=== PATIENT | female | born 1950 | race Caucasian/White ===

== ENCOUNTER 2021-06-23 12:28 | Outpatient (CLI) | payer MEDICARE, OTHER, SELFPAY ==
--- NOTE | 2021-06-23 13:07 | MM_ITS ---
WS: [id number] BILATERAL DIGITAL SCREENING MAMMOGRAPHY WITH CAD CLINICAL INFORMATION: SCREEN HISTORY: Screening mammogram. No current complaints. COMPARISON: 06 04,019 voiding opacity left breast new from previous may represent a small lymph node but indeterminant. This measures 7 mm. Recommend further evaluation with spot compression views and u ltrasound. TECHNIQUE: Bilateral CC and MLO views. FINDINGS: Scattered fibroglandular densities bilaterally. Ovoid opacity outer left breast new from previous mo st likely represents a small lymph node but technically indeterminant and new from previous. This aquiles sures 7 mm. Recommend further evaluation with spot compression views and ultrasound. Right breast is unremarkable and unchanged. MM/[place] [id number] IMPRESSION: BI-RADS: 0-Incomplete: Need additional imaging evaluation FOLLOW UP: Need Additional Imaging Recommend left breast diagnostic mammography and ultrasound
--- NOTE | 2021-06-23 13:53 | XR_ITS ---
WS: [id number] DEXA (DUAL ENERGY X-RAY ABSORPTIOMETRY) Bone mineral density was performed using a [email or web address] machine. HISTORY: STATUS, ASYMPTOMATIC POSTMENOPAUSAL COMPARISON: None available. Lumbar spine BMD (L1-L4): 1.202 g/cm2 T score: 0.2 Z score: 1.0 Total hip BMD: Left: 1.025 g/cm2. T score: 0.1 Z score: 1.1 Right: 0.959 g/cm2. T score: -0.4 Z score: 0.6 10 year probability of a major osteoporotic fracture is 10%. XR/XR DEXA axial skeleton* [id number] IMPRESSION: NORMAL BONE MINERAL DENSITY based upon the WHO classification for females.
== END 2021-06-23 12:29 | disposition home or self-care (01) ==
PROVIDERS: PCP Internal Medicine; Visit Provider Internal Medicine
DX: Z12.31 Encounter for screening mammogram for malignant neoplasm of breast (principal); Z78.0 Asymptomatic menopausal state
CPT/HCPCS: 77067; 77080

== ENCOUNTER 2021-07-27 08:51 | Outpatient (CLI) | payer MEDICARE, OTHER, SELFPAY ==
--- NOTE | 2021-07-27 08:59 | US_ITS ---
WS: [id number] LEFT DIGITAL MAMMOGRAPHY WITH CAD CLINICAL INFORMATION: LT ABNORMAL MAMMOGRAM TECHNIQUE: 4 views of the left breast were obtained. FINDINGS: Scattered fibroglandular densities of the left breast. 7 mm ovoid opacity outer left breast is unchan ged. This persists on spot compression views. Ultrasound is pending. ULTRASOUND BREAST LEFT TECHNIQUE: Ultrasound left breast focused area of concern. CLINICAL INFORMATION: LT ABNORMAL MAMMOGRAM COMPARISON: None. FINDINGS: Ultrasound left breast at the 2:00 position 3 cm from the nipple. Tiny anechoic simple cyst at the 2:00 position measuring 3.9 x 5.3 x 2.6 mm. This is benign. No suspi cious findings to target for biopsy. US/US breast LT limited* [id number] IMPRESSION: BI-RADS: 2-Benign FOLLOW UP: 1 Year Follow-up Recommend return to annual screening mammography.
== END 2021-07-27 08:52 | disposition home or self-care (01) ==
LOC: RADSHAW 08:57
PROVIDERS: PCP Internal Medicine; Visit Provider Internal Medicine
DX: R92.8 Other abnormal and inconclusive findings on diagnostic imaging of breast (principal)
CPT/HCPCS: 76642; 77065

== ENCOUNTER 2022-08-08 14:40 | Outpatient (CLI) | payer MEDICARE, OTHER, SELFPAY ==
--- NOTE | 2022-08-08 14:53 | MM_ITS ---
WS: [id number] BILATERAL 3D TOMOSYNTHESIS DIGITAL SCREENING MAMMOGRAPHY WITH CAD CLINICAL INFORMATION: SCREENING HISTORY: Screening mammogram. No current complaints. COMPARISON: 2020 TECHNIQUE: Bilateral CC and MLO views. FINDINGS: Scattered fibroglandular densities bilaterally. No suspicious focal mass, asymmetry, calcifications, or architectural distortion. No evidence of malignancy. Stable ovoid cyst upper outer LEFT breast pre viously demonstrated on ultrasound. Incidental punctate calcifications. MM/[place] [id number] IMPRESSION: BI-RADS: 2-Benign FOLLOW UP: 1 Year Follow-up Recommend return to annual screening mammography.
== END 2022-08-08 14:41 | disposition home or self-care (01) ==
LOC: RAD 14:44
PROVIDERS: PCP Internal Medicine; Visit Provider Internal Medicine
DX: Z12.31 Encounter for screening mammogram for malignant neoplasm of breast (principal)
CPT/HCPCS: 77063; 77067

== ENCOUNTER 2023-06-25 18:37 | Emergency (ER) | payer MEDICARE, OTHER, SELFPAY ==
--- NOTE | 2023-06-25 18:58 | ECG_ITS ---
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 Measurements Intervals [place] Rate: 99 P: 60 ID: [id number] QRS: 71 QRSD: 98 T: 76 QT: 364 QTc: 469 Interpretive Statements SINUS RHYTHM POSSIBLE LEFT ATRIAL ENLARGEMENT [-0.1mV P-WAVE IN V1/V2] INCOMPLETE RIGHT BUNDLE BRANCH BLOCK [90+ ms QRS DURATION, TERMINAL R IN V1/V2, 40+ ms S IN I/aVL/V4/V5/V6] MODERATE ST DEPRESSION [0.05+ mV ST DEPRESSION] No previous ECG available for comparison Electronically Signed On 06-25-2023 21:25:40 GROUP INSURANCE SPECIALIST by Елена Heard M.D. [email or web address]
[2023-06-25 18:59] VITALS: BP 132/110
--- NOTE | 2023-06-25 18:59 | CTR_ITS ---
PROCEDURE INFORMATION: Exam: CT Head Without Contrast Exam date and time: 06/25/2023 6:42 PM Age: 72 years old Clinical indication: Stroke-like symptoms; Altered mental status/memory loss and speech disturbance; Additional info: Poss CVA TECHNIQUE: Imaging protocol: Computed tomography of the head without contrast. Radiation optimization: All CT scans at this facility use at least one of these dose optimization techniques: automated exposure control; mA and/or kV adjustment per patient size (includes targeted exams where dose is matched to clinical indication); or iterative reconstruction. Other technique: STROKE PROTOCOL was implemented. REPORTING DATA: Count of CT and Cardiac NM exams in prior 12 months: This patient has received 0 known CTs and 0 known cardiac nuclear medicine studies in the 12 months prior to the current study. COMPARISON: No relevant prior studies available. RADIATION DOSE METRICS: Total DLP (mGy-cm): 1112.38 FINDINGS: Brain: Increased attenuation along the posterior cerebral falx in tentorium, findings can be seen with acute subdural hematomas. Mild loss of crowley-white differentiation along the right parietal lobe. No brain herniation. Cerebral ventricles: Ventricles and Sulci are normal for age. Paranasal sinuses: Paranasal sinuses are clear. Mastoid air cells: Bilateral mastoid air cells are clear. Orbital cavities: Orbits are symmetric and without abnormality. Bones/joints: No acute fracture. No aggressive lytic or blastic lesions. Soft tissues: Unremarkable. CT/CT head thrombolytic [id number] IMPRESSION: 1. Subtle hypodensity along the right parietal lobe, which may represent an acute infarct. Brain MRI without contrast is recommended. 2. Increase hypodensity along the cerebral falx and tentorium, findings can be seen with small subdural hematomas. Close follow-up is recommended. ASSESSMENT: ASPECTS ([place] Stroke Program Early CT Score) is 9. THIS REPORT CONTAINS FINDINGS THAT MAY BE CRITICAL TO PATIENT CARE. The findings were verbally communicated via telephone conference with Dr. Srinivasan at 7:12 PM FEEDMOBILE DRIVER on 06/25/2023. The findings were acknowledged and understood.
--- NOTE | 2023-06-25 18:59 | CTR_ITS ---
PROCEDURE INFORMATION: Exam: CTA Head With Contrast, Arteriography Exam date and time: 06/25/2023 6:51 PM Age: 72 years old Clinical indication: Stroke-like symptoms; Altered mental status/memory loss and speech disturbance; Additional info: Poss CVA TECHNIQUE: Imaging protocol: Computed tomographic angiography of the head with contrast. Exam focused on the arteries. 3D rendering (Not supervised by radiologist): MIP and/or 3D reconstructed images were created by the technologist. Radiation optimization: All CT scans at this facility use at least one of these dose optimization techniques: automated exposure control; mA and/or kV adjustment per patient size (includes targeted exams where dose is matched to clinical indication); or iterative reconstruction. Contrast material: OMNI 350; Contrast volume: 100 ml; Contrast route: INTRAVENOUS (IV); REPORTING DATA: Count of CT and Cardiac NM exams in prior 12 months: This patient has received 0 known CTs and 0 known cardiac nuclear medicine studies in the 12 months prior to the current study. COMPARISON: CT head thrombolytic [id number] 06/25/2023 6:42 PM RADIATION DOSE METRICS: Total DLP (mGy-cm): 624.61 FINDINGS: ANTERIOR CIRCULATION: Right internal carotid artery: Intracranial segment is patent with no significant stenosis. No aneurysm. Right middle cerebral artery: No occlusion or significant stenosis. No aneurysm. Right anterior cerebral artery: No occlusion or significant stenosis. No aneurysm. Left internal carotid artery: Intracranial segment is patent with no significant stenosis. No aneurysm. Left middle cerebral artery: No occlusion or significant stenosis. No aneurysm. Left anterior cerebral artery: No occlusion or significant stenosis. No aneurysm. POSTERIOR CIRCULATION: Right vertebral artery: No occlusion or significant stenosis. No aneurysm. Left vertebral artery: No occlusion or significant stenosis. No aneurysm. Basilar artery: No occlusion or significant stenosis. No aneurysm. Right posterior cerebral artery: No occlusion or significant stenosis. No aneurysm. Left posterior cerebral artery: No occlusion or significant stenosis. No aneurysm. Brain: No definite mass, mass effect, or midline shift. Cerebral ventricles: No ventriculomegaly. Bones/joints: Unremarkable. No acute fracture. Soft tissues: Unremarkable. PROCEDURE INFORMATION: Exam: CTA Neck With Contrast Exam date and time: 06/25/2023 6:51 PM Age: 72 years old Clinical indication: Stroke-like symptoms; Altered mental status/memory loss and speech disturbance; Additional info: Poss CVA TECHNIQUE: Imaging protocol: Computed tomographic angiography of the neck with contrast. Exam focused on the cervical segments of the vasculature. 3D rendering (Not supervised by radiologist): MIP and/or 3D reconstructed images were created by the technologist. Radiation optimization: All CT scans at this facility use at least one of these dose optimization techniques: automated exposure control; mA and/or kV adjustment per patient size (includes targeted exams where dose is matched to clinical indication); or iterative reconstruction. Contrast material: OMNI 350; Contrast volume: 100 ml; Contrast route: INTRAVENOUS (IV); REPORTING DATA: Count of CT and Cardiac NM exams in prior 12 months: This patient has received 0 known CTs and 0 known cardiac nuclear medicine studies in the 12 months prior to the current study. COMPARISON: CT head thrombolytic [id number] 06/25/2023 6:42 PM RADIATION DOSE METRICS: Total DLP (mGy-cm): 624.61 FINDINGS: Right common carotid artery: No stenosis. No dissection or occlusion. Right internal carotid artery: No stenosis of the extracranial segment. No dissection or occlusion. Right external carotid artery: No occlusion or stenosis of the origin. Left common carotid artery: No stenosis. No dissection or occlusion. Left internal carotid artery: No stenosis of the extracranial segment. No dissection or occlusion. Left external carotid artery: No occlusion or stenosis of the origin. Right vertebral artery: No stenosis. No dissection or occlusion. Left vertebral artery: No stenosis. No dissection or occlusion. Diminutive left vertebral artery. Soft tissues: Normal. No significant soft tissue swelling. Bones/joints: No acute fracture. CT/CT angio headneck* [id number] IMPRESSION: No large vessel stenosis or occlusion. IMPRESSION: No stenosis or occlusion. REFERENCES: NASCET CRITERIA. The degree of stenosis in the cervical segment of the internal carotid artery is based on NASCET criteria. Normal is no stenosis. Mild is less than 50% stenosis. Moderate is 50-69% stenosis. Severe is 70% to 99% stenosis. Total occlusion is no detectable patent lumen.
--- NOTE | 2023-06-25 19:00 | ED_ITS ---
HPI - Altered Mental Status 2 General: Chief Complaint: Altered Mental Status Stated Complaint: stroke like symptoms Time Seen by Provider: 06/25/23 18:56 History of Present Illness: 72-year-old female presents to the emerg ency department via POV with her family. Family state they were driving her home approximately 55 minutes ago when she suddenly started having seizure-like activity looking to her left and having inability to speak or move her left side. Patient has a history of hypertension and hypothyroidism. No recent traumas, falls or head injury per the family. The family states her blood pressure is generally well-controlled on her antihypertensive medication lisinopril and hydrochlorothiazide. Review of Systems 2 General: Reports: ROS unobtainable due to medical condition and ROS unobtainable due to mental status PFSH ED 2 PFSH: Medical History Hypertension Hypothyroidism Surgical History No pertinent past surgical history Physical Exam 2 Narrative: Constitutional: the patient appears well nourished and with normal development. Vital signs reviewed as documented. Nonverbal, obvious acute distress noted. HENMT: Normocephalic, atraumatic. Extermal ears with normal appearance without drainage. Nose without drainage, normal appearance. Mucus membranes moist. Neck is supple, No jugular venous distension, trachea is midline, no appreciable carotid bruits. No lymphadenopathy. No meningeal signs. Flexion, extension and lateral rotation is without pain. Eyes: Pupils are equal, round, reactive to light. Upward left gaze, no scleral icterus. Thorax is symmetrical and with equal rise and fall with respirations. Resp: Lungs are clear to auscultation. No wheezes, rales, crackles or ronchi at present. Cardio: Regular rate and rhythm. Positive S1, S2. No appreciable murmurs, rubs or gallops. GI: Abdominal exam reveals normal bowel sounds to all quadrants. No organomegaly. No obvious palpable masses noted. No hepatomegally appreciated. Soft, nontender to palpation. Extremity: Extremities are non-edematous and both femoral and pedal pulses are 2+ and equal bilaterally. Left upper and lower extremity paralysis with decreased sensation to the left upper and lower extremity. Right extremity upper 5 out of 5 motor strength in the right lower 5 out of 5 motor strength. Neuro: Alert, unable to assess orientation as the patient is currently nonverbal. motor strength as noted under extremity, sensation as noted under extremity. Left upper and lower extremity paralysis, left upper gaze noted. NIHSS score 25 Psych: Cooperative, calm, normal thought process, appropriate judgment. Skin: No lesions, rashes. No gross abnormalities noted. Back: Symmetrical, no obvious deformity, No CVA tenderness Procedures Intubation Time out performed: Yes sedative: Fentanyl (100mcg) paralytic: Succinylcholine (120mg) Laryngoscope: Eduard (4-0) ET Tube Size: 8 Tube Secured Depth (cm): 22 Tube Secured Location: teeth Tube Placement Confirmation: visualized tube passing through cords, equal breath sounds bilaterally, no breath sounds over epigastrium and confirmation by capnometry Patient Tolerated Procedure: well Intubation Complications: none Course 2 ED course: Patient continued to have seizure activity despite the Ativan and fosphenytoin as well as Keppra, given her continued seizure activity I did opt to intubate the patient we used 100 mcg of fentanyl IV push as well as succinylcholine 120 mg IV push and 2 mg Versed from the [facility] that was on standby. Patient was successfully intubated with an 8 oh endotracheal tube on the first attempt it was secured after auscultation of all lung fallon and absence air over the epigastrium. Verified with chest x-ray and confirmed to be 22 cm at the teeth. Patient's oxygen saturation prior to the intubation was 91% postintubation was 99% on supplemental oxygen via bag valve endotracheal tube. Patient was subsequently placed on propofol to maintain her sedation. Vital Signs: Vital signs: Vital Signs Temperature 97.5 F L 06/25/23 19:06 Pulse Rate 84 06/26/23 01:29 Respiratory Rate 17 06/25/23 20:38 Blood Pressure 139/80 06/26/23 01:29 Pulse Oximetry 100 06/26/23 01:29 Oxygen Delivery Me thod Mechanical Ventil ation 06/25/23 20:38 Oxygen Flow Rate 2 06/25/23 19:06 MDM - Altered Mental Status Medical Decision Making NIH Stroke Scale/Score (NIHSS) on 06/25/2023 RESULT SUMMARY: 25 points NIH Stroke Scale INPUTS: 1A: Level of consciousness ?> 0 = Alert; keenly responsive 1B: Ask month and age ?> 2 = Aphasic 1C: 'Blink eyes' & 'squeeze hands' ?> 1 = Performs 1 task 2: Horizontal extraocular movements ?> 2 = Forced gaze palsy: cannot be overcome 3: Visual fallon ?> 2 = Complete hemianopia 4: Facial palsy ?> 0 = Normal symmetry 5A: Left arm motor drift ?> 4 = No movement 5B: Right arm motor drift ?> 0 = No drift for 10 seconds 6A: Left leg motor drift ?> 4 = No movement 6B: Right leg motor drift ?> 0 = No drift for 5 seconds 7: Limb Ataxia ?> 2 = Ataxia in 2 Limbs 8: Sensation ?> 1 = Mild-moderate loss: can sense being touched 9: Language/aphasia ?> 3 = Mute/global aphasia: no usable speech/auditory comprehension 10: Dysarthria ?> 2 = Mute/anarthric 11: Extinction/inattention ?> 2 = Extinction to >1 modality Physical exam completed and documented, given her altered mental status I will obtain a CT head without contrast for evaluation of acute intracranial hemorrhage, I will also obtain a CTA head and neck to evaluate for ischemia. I will obtain a CBC, CMP, Accu point glucose and given the patient's active seizure I will provide Ativan 1 mg IV push to abort her seizures and we will also provide her 20 mg/kg fosphenytoin followed by 1 g of Keppra IV load. I have contacted the [facility] for [facility] as well as [facility] and spoke with the neurologist who accepted the patient to the intensive care unit under the acute stroke protocol. Patient's vital signs at present are stable and we will maintain a systolic pressure in the 130-150 range. I did discuss with the family the plan of care as well as the need for emergent transfer. Dr. Childs the neurologist at this facility was also consulted and is currently seeing the patient. Given the concern for acute intracranial hemorrhage the patient is not a candidate for thrombolytics at present. Medical Records I reviewed the patient's medical records. Lab Data I reviewed the patient's lab results. 06/25/23 19:05 06/25/23 19:[address] 06/25/23 18:59 IMPRESSION: 1. Subtle hypodensity along the right parietal lobe, which may represent an acute infarct. Brain MRI without contrast is recommended. 2. Increase hypodensity along the cerebral falx and tentorium, findings can be seen with small subdural hematomas. Close follow-up is recommended. ASSESSMENT: ASPECTS ([place] Stroke Program Early CT Score) is 9. THIS REPORT CONTAINS FINDINGS THAT MAY BE CRITICAL TO PATIENT CARE. The findings were verbally communicated via telephone conference with Dr. Srinivasan at 7:12 PM COLD MILL OPERATOR on 06/25/2023. The findings were acknowledged and understood. Head/Neck CTA 06/25/23 18:59 IMPRESSION: No large vessel stenosis or occlusion. IMPRESSION: No stenosis or occlusion. REFERENCES: NASCET CRITERIA. The degree of stenosis in the cervical segment of the internal carotid artery is based on NASCET criteria. Normal is no stenosis. Mild is less than 50% stenosis. Moderate is 50-69% stenosis. Severe is 70% to 99% stenosis. Total occlusion is no detectable patent lumen. Chest X-Ray 06/25/23 20:15 IMPRESSION: Endotracheal tube tip in place 2.7 cm above the gerard. Laboratory Results WBC 9.36 10^3/uL (3.29-11.43) 06/25/23 19:05 RBC 4.13 10^6/uL (3.85-5.65) 06/25/23 19:05 Hgb 12.00 g/dL (11.27-16.99) 06/25/23 19:05 Hct 37.9 % (36-47) 06/25/23 19:05 MCV 91.8 fl (85-98) 06/25/23 19:05 MCH 29.1 pg (27-33) 06/25/23 19:05 MCHC 31.7 g/dL (30-55) 06/25/23 19:05 RDW 13.4 % (12.1-15.1) 06/25/23 19:05 Plt Count 236 10^3/cmm (157-399) 06/25/23 19:05 MPV 9.7 fL (7.4-10.4) 06/25/23 19:05 Neut % (Auto) 45.5 % 06/25/23 19:05 Lymph % (Auto) 38.8 % 06/25/23 19:05 [place] % (Auto) 13.7 % 06/25/23 19:05 Eos % (Auto) 1.1 % 06/25/23 19:05 Baso % (Auto) 0.3 % 06/25/23 19:05 Neut # (Auto) 4.26 10^3/uL (1.8-7.7) 06/25/23 19:05 Lymph # (Auto) 3.6 10^3/uL (0.8-4.8) 06/25/23 19:05 [place] # (Auto) 1.3 10^3/uL (0.2-0.9) H 06/25/23 19:05 Eos # (Auto) 0.1 10^3/uL (0.0-0.8) 06/25/23 19:05 Baso # (Auto) 0.0 10^3/uL (0.0-0.1) 06/25/23 19:05 Nucleated RBC % (auto) 0 % 06/25/23 19:05 Nucleated RBCs # 0.0 /100WBC 06/25/23 19:05 PT 13.70 SECONDS (12.1-14.9) 06/25/23 19:05 INR 1.02 (0.8-1.2) 06/25/23 19:05 APTT 23.6 SECONDS (23.9-36.7) L 06/25/23 19:05 Sodium 135 mmol/L (136-145) L 06/25/23 19:05 Potassium 3.6 mmol/L (3.5-5.1) 06/25/23 19:05 Chloride 99 mmol/L (98-107) 06/25/23 19:05 Carbon Dioxide 24 mmol/L (22-29) 06/25/23 19:05 Anion Gap 15.6 (5-19) 06/25/23 19:05 BUN 26 mg/dL (8-23) H 06/25/23 19:05 Creatinine 0.9 mg/dL (0.5-0.9) 06/25/23 19:05 GFR Calculation Not Reportable 06/25/23 19:05 Glucose 103 mg/dL (65-115) 06/25/23 19:05 POC Glucose 109 mg/dL (70-110) 06/25/23 19:00 Calculated Osmolality 285 mOsm/kg (285-295) 06/25/23 19:05 Calcium 8.8 mg/dL (8.5-10.5) 06/25/23 19:05 Total Bilirubin 0.2 mg/dL (0.15-1.2) 06/25/23 19:05 AST 17 U/L (0-32) 06/25/23 19:05 ALT 15 U/L (0-33) 06/25/23 19:05 Alkaline Phosphatase 70 U/L (35-105) 06/25/23 19:05 Total Protein 6.8 g/dL (6.6-8.7) 06/25/23 19:05 Albumin 3.5 g/dL (3.5-5.2) 06/25/23 19:05 Globulin 3.3 g/dL (1.3-4.6) 06/25/23 19:05 Urine Color Yellow (Yellow) 06/25/23 Unknown Urine Appearance Clear (CLEAR) 06/25/23 Unknown Urine pH 5 (5-7) 06/25/23 Unknown Ur Specific [place] 1.020 (1.005-1.030) 06/25/23 Unknown Urine Protein Trace (Negative) 06/25/23 Unknown Urine Glucose (UA) Norm (Normal) 06/25/23 Unknown Urine Ketones Negative (Negative) 06/25/23 Unknown Urine Blood 2+ (Negative) H 06/25/23 Unknown Urine Nitrate Negative (Negative) 06/25/23 Unknown Urine Bilirubin Neg (Negative) 06/25/23 Unknown Urine Urobilinogen Neg mg/dL (Negative) 06/25/23 Unknown Ur Leukocyte Esterase Negative (Negative) 06/25/23 Unknown Urine RBC 0-4 /hpf (0-2) H 06/25/23 Unknown Urine WBC None /hpf (0-5) 06/25/23 Unknown Ur Squamous Epith Cells None /hpf (0-5) 06/25/23 Unknown Amorphous Sediment Not Reportable 06/25/23 Unknown Urine Bacteria None /hpf (NONE) 06/25/23 Unknown Urine Opiates Screen Negative ng/mL (Negative) 06/25/23 Unknown Ur Barbiturates Screen Negative ng/mL (Negative) 06/25/23 Unknown Ur Phencyclidine Scrn Negative ng/mL (Negative) 06/25/23 Unknown Ur Amphetamines Screen Negative ng/mL (Negative) 06/25/23 Unknown U Benzodiazepines Scrn Negative ng/mL (Negative) 06/25/23 Unknown Urine Cocaine Screen Negative ng/mL (Negative) 06/25/23 Unknown U Marijuana (THC) Screen Negative ng/mL (Negative) 06/25/23 Unknown All radiology interpretation(s) finalized by discharge Critical Care Time 2 Critical Care Time: Critical Care Time: Yes Total Critical Care Time: 60 Attestation: This case had a high probability of a clinically significant, sudden, or life threatening deterioration of this patient's condition which required my full and direct attention, intervention and personal management. Discharge Plan Discharge Patient Disposition: Transfer to ED Clinical Impression: Acute intra-cranial hemorrhage, Altered mental status Condition: Stable Prescriptions: No Action levothyroxine 50 mcg capsule 50 mcg PO DAILY lisinopril-hydrochlorothiazide 20-12.5 mg tablet 1 tab PO DAILY benzonatate 100 mg capsule 100 mg PO BID PRN Referrals: Alma Mckay MD [Primary Care Provider] - Patient Instructions: Hyponatremia (ED), Benzodiazepine Use Disorder (ED), Dementia (ED), Non-diabetic Hypoglycemia (ED), Hypoglycemia in a Person with Diabetes (ED), Concussion (ED), Alcohol Intoxication (ED), Subarachnoid Hemorrhage (GEN), Altered Mental Status (ED) Coding Level of Care Code ED Telesales Advisor for Agustín Ortiz
[2023-06-25] MEDS: LORazepam 2 mg/mL INJ 1 mL IVP (19:05)
[2023-06-25 19:06] VITALS: BP 172/109; PULSE 97; RESP 18; TEMP 36.4; O2SAT 92; BMI 32.5
--- NOTE | 2023-06-25 19:06 | XRR_ITS ---
PROCEDURE INFORMATION: Exam: XR Chest Exam date and time: 06/25/2023 7:33 PM Age: 72 years old Clinical indication: Other: Post CVA; Additional info: Poss CVA TECHNIQUE: Imaging protocol: Radiologic exam of the chest. Views: 1 view. COMPARISON: CT angio headneck* [id number] 06/25/2023 6:51 PM FINDINGS: Lungs: Unremarkable. No consolidation. Pleural spaces: Unremarkable. No pleural effusion. No pneumothorax. Heart/Mediastinum: Unremarkable. No cardiomegaly. Bones/joints: Unremarkable. XR/XR chest 1V portable [id number] IMPRESSION: No acute findings.
[2023-06-25 19:10] LABS: Basophils % 0.3 %; Eosinophils # 0.1 10^3/uL (0.0-0.8); Eosinophils % 1.1 %; Hematocrit 37.9 % (36-47); Lymphocytes # 3.6 10^3/uL (0.8-4.8); Lymphocytes % 38.8 %; Mean Corpuscular HGB Conc 31.7 g/dL (30-55); Mean Corpuscular Hemoglobin 29.1 pg (27-33); Mean Corpuscular Volume 91.8 fl (85-98); Mean Platelet Volume 9.7 fL (7.4-10.4); Monocytes # 1.3 10^3/uL (0.2-0.9); Monocytes % 13.7 %; Neutrophils # 4.26 10^3/uL (1.8-7.7); Neutrophils % 45.5 %; Nucleated Red Blood Cells % 0 %; Platelet Count 236 10^3/cmm (157-399); Red Blood Count 4.13 10^6/uL (3.85-5.65); Red Cell Distribution Width 13.4 % (12.1-15.1); White Blood Count 9.36 10^3/uL (3.29-11.43)
[2023-06-25] MEDS: levETIRAcetam 1,000 MG/100 ML PREMIX 400 MG IV (19:15)
[2023-06-25 19:21] LABS: INR 1.02 (0.8-1.2); Partial Thromboplastin Time 23.6 SECONDS (23.9-36.7)
[2023-06-25] MEDS: iohexol 350 mg/mL 500 mL Btl (per mL) IV (19:27)
[2023-06-25 19:28] LABS: Alanine Aminotransferase 15 U/L (0-33); Albumin Level 3.5 g/dL (3.5-5.2); Alkaline Phosphatase 70 U/L (35-105); Anion Gap 15.6 (5-19); Aspartate Amino Transferase 17 U/L (0-32); Blood Urea Nitrogen 26 mg/dL (8-23); Calcium 8.8 mg/dL (8.5-10.5); Carbon Dioxide 24 mmol/L (22-29); Chloride 99 mmol/L (98-107); Globulin 3.3 g/dL (1.3-4.6); Glucose 103 mg/dL (65-115); Osmolality Calculated 285 mOsm/kg (285-295); Potassium 3.6 mmol/L (3.5-5.1); Sodium 135 mmol/L (136-145); Total Bilirubin 0.2 mg/dL (0.15-1.2); Total Protein 6.8 g/dL (6.6-8.7)
[2023-06-25 19:38] VITALS: BP 149/77; PULSE 92; O2SAT 93
[2023-06-25] MEDS: fentaNYL 50 mcg/mL INJ 2mL 100 MCG IVP (19:45)
[2023-06-25 19:53] VITALS: BP 125/74; PULSE 94; RESP 18; O2SAT 100
[2023-06-25] MEDS: midazolam 1 mg/mL INJ 2 mL 2 MG IVP (19:57)
[2023-06-25] MEDS: succinylcholine 20 mg/mL SDV 10mL 120 MG IV (20:00)
[2023-06-25 20:05] LABS: Add Urine Microscopic? YES; Bilirubin Urine Neg (Negative); Blood Urine 2+ (Negative); Glucose Urine UA Norm (Normal); Ketones Urine Negative (Negative); Leukocyte Esterase Urine Negative (Negative); Nitrate Urine Negative (Negative); Protein Urine Trace (Negative); Urine Appearance Clear (CLEAR); Urine Color Yellow (Yellow); Urobilinogen Urine Neg (Negative); pH Urine 5 (5-7)
[2023-06-25] MEDS: propofol 1,000 MG/100 ML INJ 10 MG (20:05)
[2023-06-25 20:06] LABS: Add Urine Culture? No; RBC Urine 0-4 /hpf (0-2)
--- NOTE | 2023-06-25 20:06 | P.CONIM_ITS ---
Providers/Reason For Consult 2 Consulting Physician/Specialty*: Isidoro Childs MD neurology and epilepsy Reason for Consult*: 1. Critical care code stroke initiated o n 06/25/2023 at 6:40 PM emergency department room #10 2. Status epilepticus manifested as aga ation of her eyes to the left associated with left facial weakness and chronic seizures involving left face mouth and left upper extremity with tonic posturing of the left upper extremity and left lower extremity weakness Patient was brought by family to [facility] emergency room Serum glucose 103 NIH score equals [address] 06/25/2023 Neurologist arrival at the bedside 6:58 PM Primary Care Provider: Alma Mckay MD History of Present Illness History of Present Illness Sharyn Garza is a 72 year old female who was brought to [facility] emergency room by the family. According to the , the patient and he had just left a congregation function around 5:30 PM on 06/25/2023. The patient was driving and the stated that the patient drove past their paved driveway and then passed the carport. He stated that the patient was confused and the stated that he had the patient's stop the car and he assisted her into their home. The stated that he sat the patient down at their kitchen table and the patient remained confused. Therefore he contacted their son who arrived and while attempting to get the patient up from the kitchen table she began staring and was complaining briefly to her and suddenly the patient resumed staring with deviation of her head and eyes to the left. The episode lasted for approximately 5 minutes and then the patient was able to be assisted into the car. While en route to the emergency room the patient reported feeling nauseated and was again reported to stare with deviation of her eyes to the left with tonic posturing of the left upper extremity and left leg weakness. Code stroke was initiated at 6:40 PM on 06/25/2023. The patient was transferred to room #10. I was contacted by Dr. Hutchins since the patient was experiencing focal seizures involving the left side of her face, and mouth, with tonic deviation of eyes to the left and increased tone in the left upper extremity with decreased level consciousness although the patient's eyes remain open. Noncontrast head CT scan was obtained and revealed : Subtle hypodensity along the right parietal lobe, which may represent an acute infarct and Increase hypodensity along the cerebral falx and tentorium, findings can be seen with small subdural hematomas. Close follow-up is recommended and Brain MRI without contrast is recommended. Decision was made to transfer the patient to another facility. CT angiogram of the head and neck was obtained on 06/25/2023 and revealed no large vessel occlusion. The patient was given 1 mg of Ativan but continued to experience seizures. Therefore 1 g of fosphenytoin was given at 100 mg/min x 1 dose. The patient's seizures temporarily ceased but then resumed. Patient was given 1 g of IV Keppra x 1 dose with temporary ceasing of seizure activity but then the patient's seizure activity resumed. Therefore the patient was given Versed, intubated and started on IV propofol prior to patient being med flighted to another facility to address subdural hematoma. Note: In view of the patient's status epilepticus, and reports of subdural hematoma on noncontrast head CT the patient was not a candidate for thrombolytics and no thrombolytics were administered. Past medical history: Hypothyroidism Hypertension Drug allergies: None Home medications: Synthroid 50 mcg p.o. daily Lisinopril 20 mg/hydrochlorothiazide 12.5 mg p.o. daily Benzonatate 100 mg p.o. twice daily, as needed Family history: Remarkable for a father who was diagnosed with a ruptured aneurysm. There is no family history of epilepsy Habits: None Review of Systems 2 General: Reports: ROS unobtainable due to medical condition Medications/Allergies Home Medications Medication Instructions Recorded Confirmed Last Taken Type benzonatate 100 mg capsule 100 mg PO BID PRN 10/13/22 10/13/22 Unknown History levothyroxine 50 mcg capsule 50 mcg PO DAILY 10/13/22 10/13/22 Unknown History lisinopril 20 1 tab PO DAILY 10/13/22 10/13/22 Unknown History mg-hydrochlorothiazide 12.5 mg tablet Allergies Allergy/AdvReac Type Severity Reaction Status Date / Time No Known Allergies Allergy Verified 10/13/22 14:00 PFSH Acute 2 PFSH: Medical History Hypertension Hypothyroidism Surgical History No pertinent past surgical history Vitals/I&O/Wt Last Vital Signs Temp 97.5 F L 06/25/23 19:06 Pulse 97 06/25/23 19:06 Resp 18 06/25/23 19:06 BP 172/109 06/25/23 19:06 Pulse Ox 92 06/25/23 19:06 O2 Del Method Nasal Cannula 06/25/23 19:06 O2 Flow Rate 2 06/25/23 19:06 Weight last 48 hrs Weight 190 lb Physical Exam 2 Narrative: NIH score = 25 The patient was not responding to commands. Patient was unable to answer questions or follow commands. Patient had deviation of her eyes to the left with left gaze preference. Visual fallon could not be assessed. Patient had left facial drooping with focal motor seizures/twitching involving the left face and mouth and eyes and increased tone in the left upper extremity with no movement of the left formal left leg. Coordination was affected in the left arm and left leg secondary to weakness/paralysis. Patient was unable to speak. And there was neglect on the left side of her body plantar responses were flexor bilaterally. There was no clonus. Throat clear. Lungs clear. Heart regular rhythm and rate. Extremities were negative for clubbing cyanosis or edema. Data 06/25/23 19:05 06/25/23 19:05 A&P Assessment and plan (1) Acute intra-cranial hemorrhage: Impression: 1. Status epilepticus requiring intubation and sedation and IV anticonvulsants (Ativan, Versed, Keppra, and fosphenytoin) and propofol 2. Subtle hypodensity along the right parietal lobe, which may represent an acute infarct. Head MRI recommended 3. Increase hypodensity along the cerebral falx and tentorium, findings can be seen with small subdural hematomas. Plan: 1. Agree with transfer via med flight to a facility with the capacity to address subdural hematoma 2. Patient stabilized prior to transfer via med flight 3. Seizure precautions per state law 4. Agree with obtaining head MRI (note: CT angiogram of the head and neck performed on 06/25/2023 was reported to be negative for obvious aneurysm) (2) Status epilepticus: (3) Stroke: (4) Altered mental status: Consult Attestations 2 Medical Necessity Statement: The patient was evaluated by neurology secondary to critical care with acute right parietal stroke, reports of subdural hematoma and status epilepticus requiring intubation and transfer to another facility Coding Level of Care Code 77944 Diagnoses Acute intra-cranial hemorrhage I62.9 Status epilepticus G40.901 Stroke I63.9 Altered mental status R41.82 Time Spent (min) 60 Comment I spent more than 60 minutes addressing the patient's neurological condition
[2023-06-25 20:09] LABS: Amphetamines Screen Urine Negative (Negative); Barbiturates Screen Urine Negative (Negative); Benzodiazepines Screen Urine Negative (Negative); Cocaine Screen Urine Negative (Negative); Opiate Screen Urine Negative (Negative); PCP Screen Urine Negative (Negative); THC Screen Urine Negative (Negative)
--- NOTE | 2023-06-25 20:15 | XRR_ITS ---
PROCEDURE INFORMATION: Exam: XR Chest Exam date and time: 06/25/2023 8:02 PM Age: 72 years old Clinical indication: Device placement; Ett placement (vent status); Patient HX: Check S/P et placement TECHNIQUE: Imaging protocol: Radiologic exam of the chest. Views: 1 view. COMPARISON: CR (CHEST, ) 06/25/2023 7:33 PM FINDINGS: Tubes, catheters and devices: Endotracheal tube tip in place 2.7 cm above the gerard. Lungs: Unremarkable. No consolidation. Pleural spaces: Unremarkable. No pleural effusion. No pneumothorax. Heart/Mediastinum: Unremarkable. No cardiomegaly. Bones/joints: Unremarkable. XR/XR chest 1V portable [id number] IMPRESSION: Endotracheal tube tip in place 2.7 cm above the gerard.
[2023-06-25 20:23] VITALS: BP 134/101; O2SAT 100
[2023-06-25 20:38] VITALS: BP 139/84; PULSE 85; RESP 17; O2SAT 100
[2023-06-25 20:49] LABS: Glucose Point of Care 109 mg/dL (70-110)
--- NOTE | 2023-06-26 01:24 | PC.NURSE ---
nih scale please see physician note for nih scale.
--- NOTE | 2023-06-26 01:25 | PC.NURSE ---
intial pt contact registration made a call to this nurse stating a pt needed help out of the vehicle. this nurse and another went to assist. pt had her eyes open but was unresponsive to commands. this nurse pulled her out of the vehicle into a wheelchair. we wheeled pt into lobby. this nurse asked pt to squeeze my hands and pt did so. pt head was turned all the way left. pt was not responding to her name. this nurse called for dr an to come do a stroke assessment and he did. stroke alert was called at 1840 and pt was taken to ct.
[2023-06-26 01:29] VITALS: BP 139/80; PULSE 84; O2SAT 100
[2023-06-26] MEDS: sodium chloride 0.9% 1,000 ML 999 ML IV (01:34)
== END 2023-06-25 20:50 ==
PROVIDERS: Emergency Provider Internal Medicine; PCP Internal Medicine
DX: I62.9 Nontraumatic intracranial hemorrhage, unspecified (principal); R41.82 Altered mental status, unspecified; I10 Essential (primary) hypertension
CPT/HCPCS: 31500; 36416; 70450; 70496; 70498; 71045; 80053; 80306; 81001; 82962; 85025; 85610; 85730; 93005; 96374; 96375; 99291; 99292; J0330; J1953; J2060; J2250; J2704; J3010; J7030; Q2009; Q9967

== ENCOUNTER 2023-07-04 16:01 | Outpatient (CLI) | payer MEDICARE, OTHER, SELFPAY ==
--- NOTE | 2023-07-04 16:10 | XR_ITS ---
WS: [id number] Exam: XR lumbar spine 6V w f/e [id number] Date/Time of Exam: 07/04/2023 4:19 PM Reason For Exam: DDD Comparison 05/28/2008. No fracture or dislocation. 6 mm degenerative anterolisthesis of L5 on S1. 2 mm degenerative anteroli sthesis of L4 on L5. Mild degenerative retrolisthesis of L1 on L2 and L2 on L3. Also mild degenerativ e retrolisthesis of L3 on L4. 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 Degenerative disc narrowing at all levels. Sli ght levoscoliosis. No significant change during flexion or extension. Surgical clips along the LEFT p araspinal region. IMPRESSION: 1. Moderately advanced degenerative changes as detailed above. 2. No significant change identified on flexion and extension views.
--- NOTE | 2023-07-04 16:10 | XR_ITS ---
WS: [id number] Exam: XR hip LT 2-3V wo/w pel* [id number] Date/Time of Exam: 07/04/2023 4:19 PM Reason For Exam: PAIN IN LEFT HIP No fracture or dislocation. Minimal degenerative change of the joint compartment. Normal soft tissues . IMPRESSION: 1. Minimal DJD.
== END 2023-07-04 16:02 | disposition home or self-care (01) ==
LOC: RAD 16:04
PROVIDERS: PCP Internal Medicine; Visit Provider Internal Medicine
DX: M16.12 Unilateral primary osteoarthritis, left hip (principal); M51.17 Intervertebral disc disorders with radiculopathy, lumbosacral region
CPT/HCPCS: 72114; 73502

== ENCOUNTER 2023-08-14 11:20 | Emergency (ER) | payer MEDICARE, OTHER, SELFPAY ==
[2023-08-14 11:30] VITALS: BP 159/88; PULSE 80; TEMP 36.4; O2SAT 96; BMI 35.0
--- NOTE | 2023-08-14 11:45 | W.ED.GENADLT ---
HPI - General Adult General: Chief complaint: General Medical Stated complaint: not feeling well / hx of brain tumor Time Seen by Provider: 08/14/23 11:28 History of Present Illness: 72-year-old female presents to the emergency department via EMS personnel with complaints of feeling off balance and having headache. She denies recent fall or injury. Patient was seen here on 06/25/2023 and was found to have new onset seizure activity secondary to acute findings on her CT scan of her head which consist of hypodensity in the right parietal lobe possibly representing an acute infarct and second area of hypodensity along the cerebral falx and tentorium consistent with subdural hematomas. Patient states that she has a history of hypertension and hypothyroid. She is scheduled to have neurosurgical intervention later this week. She states she just became very worried and anxious she has had recent increased life stressors to include 2 grandchildren that committed suicide recently within the past 6 months. She is very tearful during our initial evaluation here in the emergency department. Associated symptoms: Reports headache(s) Review of Systems General: Reports: 10 or more systems reviewed and unremarkable except in HPI and below Neuro: Reports: headache(s) Psych: Reports: depression [facility] PFSH: Medical History Hypertension Hypothyroidism Surgical History No pertinent past surgical history Physical Exam Narrative: EXAM NARRATIVE: Constitutional: the patient appears well nourished and with normal development. Vital signs reviewed as documented. HENMT: Normocephalic, atraumatic. External ears normal appearance without drainage. Nose without drainage, normal appearance. Mucus membranes moist. Neck is supple, No jugular venous distension, trachea is midline, no appreciable carotid bruits. No lymphadenopathy. No meningeal signs. Flexion, extension and lateral rotation is without pain. Eyes: Pupils are equal, round, reactive to light and accommodation. No scleral icterus. Extra-ocular movement are intact. Thorax is symmetrical and with equal rise and fall with respirations. Resp: Lungs are clear to auscultation. No wheezes, rales, crackles or ronchi at present. Cardio: Regular rate and rhythm. Positive S1, S2. No appreciable murmurs, rubs or gallops. GI: Abdominal exam reveals normal bowel sounds to all quadrants. No organomegaly. No obvious palpable masses noted. No hepatomegally appreciated. Soft, non-tender to palpation. Extremity: Extremities are non-edematous and both femoral and pedal pulses are 2+ and equal bilaterally. Moves all extremities well, sensation in all extremities. Neuro: Alert and oriented x4, person, place, time and situation. Cranial nerves II through XII are grossly intact, there is no focal neurological deficits that I can appreciate at present. Motor strength in the upper and lower extremities are equal and bilateral 5/5. Psych: Cooperative, calm, normal thought process, appropriate judgment. Depressed, tearful. Skin: No lesions, rashes. No gross abnormalities noted. Back: Symmetrical, no obvious deformity, No CVA tenderness Course ED course: I did contact Dr. Glass and discussed the patient's previous presenting symptoms as well as her current symptoms and received recommendation to start Lexapro at a low dose for the patient and advised her that she could contact his office for follow-up. Reevaluation(s): Reevaluation #1: Major Depression Index (MDI) on 08/14/2023 RESULT SUMMARY: 24 points Mild depression INPUTS: 1. [place] low in spirits or sad? ?> 4 = Most of the time 2. Lost interest in daily activities? ?> 3 = Slightly more than half of the time 3. [place] lacking in energy and strength? ?> 3 = Slightly more than half of the time 4. [place] less self-confident? ?> 3 = Slightly more than half of the time 5. Had a bad conscience or feelings of guilt? ?> 0 = At no time 6. [place] that life wasn?t worth living? ?> 1 = Some of the time 7. Had difficulty in concentrating, e.g. when reading the newspaper or watching television? ?> 0 = At no time 8a. [place] very restless? ?> 3 = Slightly more than half of the time 8b. [place] subdued or slowed down? ?> 3 = Slightly more than half of the time 9. Had trouble sleeping at night? ?> 4 = Most of the time 10a. Suffered from reduced appetite? ?> 3 = Slightly more than half of the time 10b. Suffered from increased appetite? ?> 0 = At no time Time: 11:56 Vital Signs: Vital signs: Vital Signs Temperature 97.6 F 08/14/23 11:30 Pulse Rate 86 08/14/23 15:00 Blood Pressure 147/89 08/14/23 15:00 Pulse Oximetry 94 08/14/23 13:00 Oxygen Delivery Me thod Room Air 08/14/23 11:30 MDM - General Adult Medical Decision Making 72-year-old female presents secondary to feeling slightly off today recent diagnosis of new onset seizure secondary to intracranial hemorrhage with a history of hypertension and hypothyroidism. We will obtain laboratory evaluation to include a CBC, CMP and urinalysis. I will start her on antidepressant medication given her presentation and her calculated Maharaj Depression Inventory. Differential Diagnosis Anxiety, depression, UTI, Medical Records I reviewed the patient's medical records. Lab Data I reviewed the patient's lab results. 08/14/23 11:51 08/14/23 11:51 Laboratory Results WBC 8.07 10^3/uL (3.29-11.43) 08/14/23 11:51 RBC 4.66 10^6/uL (3.85-5.65) 08/14/23 11:51 Hgb 13.50 g/dL (11.27-16.99) 08/14/23 11:51 Hct 41.9 % (36-47) 08/14/23 11:51 MCV 89.9 fl (85-98) 08/14/23 11:51 MCH 29.0 pg (27-33) 08/14/23 11:51 MCHC 32.2 g/dL (30-55) 08/14/23 11:51 RDW 12.5 % (12.1-15.1) 08/14/23 11:51 Plt Count 249 10^3/cmm (157-399) 08/14/23 11:51 MPV 9.4 fL (7.4-10.4) 08/14/23 11:51 Neut % (Auto) 59.7 % 08/14/23 11:51 Lymph % (Auto) 26.9 % 08/14/23 11:51 [place] % (Auto) 10.5 % 08/14/23 11:51 Eos % (Auto) 1.6 % 08/14/23 11:51 Baso % (Auto) 0.6 % 08/14/23 11:51 Neut # (Auto) 4.81 10^3/uL (1.8-7.7) 08/14/23 11:51 Lymph # (Auto) 2.2 10^3/uL (0.8-4.8) 08/14/23 11:51 [place] # (Auto) 0.9 10^3/uL (0.2-0.9) 08/14/23 11:51 Eos # (Auto) 0.1 10^3/uL (0.0-0.8) 08/14/23 11:51 Baso # (Auto) 0.1 10^3/uL (0.0-0.1) 08/14/23 11:51 Nucleated RBC % (auto) 0 % 08/14/23 11:51 Nucleated RBCs # 0.0 /100WBC 08/14/23 11:51 Sodium 137 mmol/L (136-145) 08/14/23 11:51 Potassium 4.7 mmol/L (3.5-5.1) 08/14/23 11:51 Chloride 98 mmol/L (98-107) 08/14/23 11:51 Carbon Dioxide 29 mmol/L (22-29) 08/14/23 11:51 Anion Gap 14.7 (5-19) 08/14/23 11:51 BUN 18 mg/dL (8-23) 08/14/23 11:51 Creatinine 0.7 mg/dL (0.5-0.9) 08/14/23 11:51 GFR Calculation Not Reportable 08/14/23 11:51 Glucose 106 mg/dL (65-115) 08/14/23 11:51 Calculated Osmolality 286 mOsm/kg (285-295) 08/14/23 11:51 Calcium 9.2 mg/dL (8.5-10.5) 08/14/23 11:51 Total Bilirubin 0.2 mg/dL (0.15-1.2) 08/14/23 11:51 AST 22 U/L (0-32) 08/14/23 11:51 ALT 18 U/L (0-33) 08/14/23 11:51 Alkaline Phosphatase 126 U/L (35-105) H 08/14/23 11:51 Total Protein 8.0 g/dL (6.6-8.7) 08/14/23 11:51 Albumin 3.9 g/dL (3.5-5.2) 08/14/23 11:51 Globulin 4.1 g/dL (1.3-4.6) 08/14/23 11:51 Urine Color Straw (Yellow) 08/14/23 12:10 Urine Appearance Clear (CLEAR) 08/14/23 12:10 Urine pH 6.5 (5-7) 08/14/23 12:10 Ur Specific [place] 1.005 (1.005-1.030) 08/14/23 12:10 Urine Protein Neg (Negative) 08/14/23 12:10 Urine Glucose (UA) Norm (Normal) 08/14/23 12:10 Urine Ketones Negative (Negative) 08/14/23 12:10 Urine Blood Neg (Negative) 08/14/23 12:10 Urine Nitrate Negative (Negative) 08/14/23 12:10 Urine Bilirubin Neg (Negative) 08/14/23 12:10 Urine Urobilinogen Norm mg/dL (Negative) 08/14/23 12:10 Ur Leukocyte Esterase Negative (Negative) 08/14/23 12:10 Urine RBC None /hpf (0-2) 08/14/23 12:10 Urine WBC Rare /hpf (0-5) 08/14/23 12:10 Ur Squamous Epith Cells Rare /hpf (0-5) 08/14/23 12:10 Amorphous Sediment Not Reportable 08/14/23 12:10 Urine Bacteria Trace /hpf (NONE) 08/14/23 12:10 All radiology interpretation(s) finalized by discharge Discharge Plan Discharge Patient Disposition: Home Clinical Impression: Stress disorder, acute Condition: Stable Prescriptions: New Lexapro 10 mg tablet 10 mg PO DAILY Qty: 90 0RF No Action levothyroxine 50 mcg capsule 50 mcg PO DAILY lisinopril-hydrochlorothiazide 20-12.5 mg tablet 1 tab PO DAILY benzonatate 100 mg capsule 100 mg PO BID PRN Discharge Orders: Discharge ED (Routine); Ordered 08/14/23 Ordered By: Karthik Hutchins Referrals: Alma Mckay MD [Primary Care Provider] - Discharge Diet: Advance as tolerated Discharge Activity: Resume usual activity Patient Instructions: Opioid Safety, Pain Management Coding Level of Care Code ED Production Hardener for Chg Diana
[2023-08-14 12:05] LABS: Basophils # 0.1 10^3/uL (0.0-0.1); Basophils % 0.6 %; Eosinophils # 0.1 10^3/uL (0.0-0.8); Eosinophils % 1.6 %; Hematocrit 41.9 % (36-47); Lymphocytes # 2.2 10^3/uL (0.8-4.8); Lymphocytes % 26.9 %; Mean Corpuscular HGB Conc 32.2 g/dL (30-55); Mean Corpuscular Volume 89.9 fl (85-98); Mean Platelet Volume 9.4 fL (7.4-10.4); Monocytes # 0.9 10^3/uL (0.2-0.9); Monocytes % 10.5 %; Neutrophils # 4.81 10^3/uL (1.8-7.7); Neutrophils % 59.7 %; Nucleated Red Blood Cells % 0 %; Platelet Count 249 10^3/cmm (157-399); Red Blood Count 4.66 10^6/uL (3.85-5.65); Red Cell Distribution Width 12.5 % (12.1-15.1); White Blood Count 8.07 10^3/uL (3.29-11.43)
[2023-08-14 12:21] LABS: Alanine Aminotransferase 18 U/L (0-33); Albumin Level 3.9 g/dL (3.5-5.2); Alkaline Phosphatase 126 U/L (35-105); Anion Gap 14.7 (5-19); Aspartate Amino Transferase 22 U/L (0-32); Blood Urea Nitrogen 18 mg/dL (8-23); Calcium 9.2 mg/dL (8.5-10.5); Carbon Dioxide 29 mmol/L (22-29); Chloride 98 mmol/L (98-107); Creatinine Clr Calc Pharmacy 68.0146; Globulin 4.1 g/dL (1.3-4.6); Glucose 106 mg/dL (65-115); Osmolality Calculated 286 mOsm/kg (285-295); Potassium 4.7 mmol/L (3.5-5.1); Sodium 137 mmol/L (136-145); Total Bilirubin 0.2 mg/dL (0.15-1.2)
[2023-08-14 12:22] LABS: Bilirubin Urine Neg (Negative); Blood Urine Neg (Negative); Glucose Urine UA Norm (Normal); Ketones Urine Negative (Negative); Leukocyte Esterase Urine Negative (Negative); Nitrate Urine Negative (Negative); Protein Urine Neg (Negative); Specific Gravity, Urine 1.005 (1.005-1.030); Urine Appearance Clear (CLEAR); Urine Color Straw (Yellow); Urobilinogen Urine Norm (Negative); pH Urine 6.5 (5-7)
[2023-08-14 12:34] LABS: Add Urine Culture? No; Bacteria Urine TRACE /hpf; Squamous Epithelial Cell Urine RARE /hpf (0-5)
[2023-08-14 12:35] LABS: WBC Urine RARE /hpf (0-5)
[2023-08-14 12:44] VITALS: BP 112/63; O2SAT 99
--- NOTE | 2023-08-14 12:56 | CT_ITS ---
WS: [id number] CT head wo con* [id number] REASON FOR EXAM: Headache- Previous spontaneous head bleed IV CONTRAST ADMINISTERED: None. TOTAL EXAM DLP: 1061.[address] scans at [facility] use at least one of these dose optimization techniques: automat ed exposure control; mA and/or kV adjustment per patient size (includes targeted exams where dose is matched to clinical indication); or iterative reconstruction. FINDINGS: No midline shift or other significant mass effect. No subdural or subarachnoid hemorrhage. No brain parenchymal hemorrhage. Normal ventricular volume. No acute focal brain parenchymal abnormality. Bony base of skull and the calvarium are unremarkable. Moderate mucosal thickening in the ethmoid sinuses. IMPRESSION: No acute intracranial abnormality. Mild inflammatory sinus disease ethmoid sinuses.
[2023-08-14 13:00] VITALS: BP 145/93; PULSE 73; O2SAT 94
[2023-08-14 13:30] VITALS: BP 131/98; PULSE 75
[2023-08-14 14:00] VITALS: BP 121/82; PULSE 77
[2023-08-14 15:00] VITALS: BP 147/89; PULSE 86
== END 2023-08-14 15:17 | disposition home or self-care (01) ==
PROVIDERS: Emergency Provider Internal Medicine; PCP Internal Medicine
DX: F43.0 Acute stress reaction (principal); I10 Essential (primary) hypertension
CPT/HCPCS: 36415; 70450; 80053; 81001; 85025; 99284

== ENCOUNTER → 2023-10-09 13:49 | Outpatient (BNVA) | payer MEDICARE, OTHER, SELFPAY | PROVIDERS: PCP Internal Medicine; Referring Provider Internal Medicine; Visit Provider Psychiatry & Neurology Neurology | DX: G40.901 Epilepsy, unspecified, not intractable, with status epilepticus (principal) | CPT/HCPCS: 99212 ==

== ENCOUNTER 2023-10-16 08:49 | Outpatient (CLI) | payer MEDICARE, OTHER, SELFPAY ==
[2023-10-16 09:24] LABS: Phenytoin Dilantin 4.9 ug/mL (10-20)
== END 2023-10-16 08:50 | disposition home or self-care (01) ==
LOC: LAB 08:52
PROVIDERS: PCP Internal Medicine; Visit Provider Psychiatry & Neurology Neurology
DX: G40.901 Epilepsy, unspecified, not intractable, with status epilepticus (principal); I63.9 Cerebral infarction, unspecified
CPT/HCPCS: 36415; 80185

== ENCOUNTER → 2023-10-27 14:42 | Outpatient (BNVA) | payer MEDICARE, OTHER, SELFPAY | PROVIDERS: PCP Internal Medicine; Visit Provider Psychiatry & Neurology Neurology | DX: G40.901 Epilepsy, unspecified, not intractable, with status epilepticus (principal) | CPT/HCPCS: 95813 ==

== ENCOUNTER 2023-12-20 10:50 | Outpatient (CLI) | payer MEDICARE, OTHER, SELFPAY ==
--- NOTE | 2023-12-20 11:13 | MM_ITS ---
WS: [id number] BILATERAL SCREENING DIGITAL TOMOSYNTHESIS MAMMOGRAM WITH CAD HISTORY: SCREENING COMPARISON: 08/08/2022, 06/23/2021 and 06/04/2019 Bilateral CC and MLO views with tomosynthesis and synthetic mammography submitted. Computer aided det ection analyzed. Breast composition: There are scattered areas of fibroglandular density. No suspicious masses, microc alcifications or architectural distortion. 5 mm high density nodule upper outer quadrant LEFT breast is stable. No new suspicious mass or calcification. MM/[place] [id number] IMPRESSION: BI-RADS: 2-Benign FOLLOW UP: 1 Year Follow-up
== END 2023-12-20 10:51 | disposition home or self-care (01) ==
LOC: RAD 10:50
PROVIDERS: PCP Internal Medicine; Visit Provider Internal Medicine
DX: Z12.31 Encounter for screening mammogram for malignant neoplasm of breast (principal); R92.323 Mammographic fibroglandular density, bilateral breasts; N63.21 Unspecified lump in the left breast, upper outer quadrant
CPT/HCPCS: 77063; 77067

== ENCOUNTER → 2023-12-26 15:28 | Outpatient (BNVA) | payer MEDICARE, OTHER, SELFPAY | PROVIDERS: PCP Internal Medicine; Visit Provider Psychiatry & Neurology Neurology | DX: G40.901 Epilepsy, unspecified, not intractable, with status epilepticus (principal) | CPT/HCPCS: 99212 ==

== ENCOUNTER 2023-12-27 08:03 | Outpatient (CLI) | payer MEDICARE, OTHER, SELFPAY ==
[2023-12-27 09:12] LABS: Phenytoin Dilantin 3.7 ug/mL (10-20)
[2023-12-29 11:14] LABS: Levetiracetam Immunoassy 24.7 mcg/mL (6.0-46.0)
== END 2023-12-27 08:04 | disposition home or self-care (01) ==
LOC: LAB 08:06
PROVIDERS: PCP Internal Medicine; Visit Provider Psychiatry & Neurology Neurology
DX: G40.901 Epilepsy, unspecified, not intractable, with status epilepticus (principal); I63.9 Cerebral infarction, unspecified
CPT/HCPCS: 36415; 80177; 80185

== ENCOUNTER 2024-02-21 08:04 | Oncology outpatient (recurring) (ONCR) | payer MEDICARE, OTHER, SELFPAY ==
--- NOTE | 2024-02-21 09:16 | N.ONRAD NP_ITS ---
Radiation Oncology New Patient Visit Patient: Sharyn Garza MR#: [id number] : 1950 Age: 73 Sex: Female Dictated by: Dr. Corrie Garcia Date of Service: 02/21/2024 Referring Physician(s) : Diagnosis: Glioblastoma multiforma Radiotherapy to date: Summary > No prior radiation therapy. Chief Complaint / History of Present Illness: Patient initially recounts how she had symptoms on June 25 which she describes as a seizure. This apparently occurred during a [place] event. She was brought to the hospital and placed in a medical coma and transferred to [facility]. She underwent an initial surgery on the initial pathology showed hypercellularity and glial atypia. She was subsequently followed and then had a recurrence on an additional MRI and subsequently on January 30 had an additional surgery. One of her other symptoms at the initial encounter in June was 36 hours of laughing. 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 She has not had this happen since. After this last surgery she continues to have myoclonic jerking in multiple locations. Her left side is weaker than her right. She says she has some memory issues but mostly it is affected her coordination between her hearing, eyes and her motor coordination. As an example she says she cannot really talk on the phone and right instructions down nor can she keep up with the sticker at the bottom of the TV. She is now 3 weeks from her most recent surgery which found the tumor to be a GBM. She is here today to discuss postoperative treatment. Current Medications: Allergies: Adhesive Medical History: No history of collagen vascular disease. No previous radiation therapy. Hypothyroidism, hypertension Surgical History: Nephrectomy in 2000 when she gave her brother a kidney, tonsillectomy Family History: Her grandfather had colon cancer Social History: She currently lives with her Current Complaints / Review of Systems: . Vital Signs: Performed on 02/21/2024 8:30 AM BMI - 39.102 kg/m2 (high), Height - 64 in, Weight - 227.8 lbs, Temperature - 98.3 f, Pulse - 86 /min, Respiration - 18 /min, O2 Sat - 96 %, Pain - 0, Fatigue - 0 and BP - 161/ 102 mm(hg)(high). Physical Exam: General: Patient is in no apparent distress. She is accompanied today by her . HEENT: Normocephalic atraumatic. Pupils are equal, sclera clear, extraocular muscles intact. Both incisions are nicely healed. Pulmonary: Respiratory rate is regular and nonlabored Cardiovascular: Regular rate and rhythm Abdomen: Mildly protuberant and android pattern Neurological: Patient is able to walk. She feels like her balance is off but she seems to walk without issues. Her speech is intact. Hearing is intact. She was able to shake my hand without issues. She describes complex issues and having problems with hearing things and trying to write those down as soon she is on the phone trying to write instructions down. 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 We discussed the most recent surgery she had. She is aware of the need to proceed with the postop treatment. We reviewed the simulation process. We discussed the risk and side effects both acute and long-term. She is aware of the very poor prognosis associated with glioblastoma's. She would very much liked to make it to her grandsons wedding in March. She will be meeting with Dr. Luke on Monday to discuss the chemotherapy portion of her treatment. At this point she will return tomorrow to undergo simulation. Will be ready to initiate her treatment anytime next week once we get her planning done. She had no additional questions. I did encourage her to have her write down any questions if she should think of anything when she gets home. I am going to put her on a low-dose of dexamethasone. She did apparently have quite a bit of side effects with swelling in her hands and feet when she was on steroids previously. I will try and get her off the steroids as quickly as possible once we get her treatment started. At this point she is agreed to proceed with treatment and we will get her started soon as possible. Signed by: 02/21/2024 9:22:13 AM <<Signature on File>> Time spent with patient:45 CPT Code: CPT Code:
== END 2024-02-21 23:59 | disposition home or self-care (01) ==
LOC: ONCMED 08:06
PROVIDERS: PCP Internal Medicine; Visit Provider Radiology Radiation Oncology
DX: C71.9 Malignant neoplasm of brain, unspecified (principal)
CPT/HCPCS: 99205

== ENCOUNTER 2024-03-06 15:26 | Oncology outpatient (recurring) (ONCR) | payer MEDICARE, OTHER, SELFPAY ==
[2024-02-28 09:40] LABS: Basophils # 0.1 10^3/uL (0.0-0.1); Basophils % 0.7 %; Eosinophils # 0.1 10^3/uL (0.0-0.8); Eosinophils % 1.1 %; Hematocrit 43.9 % (36-47); Lymphocytes # 3.2 10^3/uL (0.8-4.8); Lymphocytes % 44.3 %; Mean Corpuscular HGB Conc 31.9 g/dL (30-55); Mean Corpuscular Hemoglobin 29.6 pg (27-33); Mean Corpuscular Volume 92.8 fl (85-98); Mean Platelet Volume 9.5 fL (7.4-10.4); Monocytes # 0.7 10^3/uL (0.2-0.9); Monocytes % 10.2 %; Neutrophils # 3.02 10^3/uL (1.8-7.7); Neutrophils % 42.4 %; Nucleated Red Blood Cells % 0 %; Platelet Count 229 10^3/cmm (157-399); Red Blood Count 4.73 10^6/uL (3.85-5.65); Red Cell Distribution Width 12.9 % (12.1-15.1); White Blood Count 7.13 10^3/uL (3.29-11.43)
[2024-02-28 10:06] LABS: Alanine Aminotransferase 31 U/L (0-33); Albumin Level 3.9 g/dL (3.5-5.2); Alkaline Phosphatase 186 U/L (35-105); Anion Gap 16.3 (5-19); Aspartate Amino Transferase 27 U/L (0-32); Blood Urea Nitrogen 15 mg/dL (8-23); Calcium 9.2 mg/dL (8.5-10.5); Carbon Dioxide 24 mmol/L (22-29); Chloride 104 mmol/L (98-107); Creatinine Clr Calc Pharmacy 67.5063; Globulin 3.6 g/dL (1.3-4.6); Glucose 89 mg/dL (65-115); Osmolality Calculated 290 mOsm/kg (285-295); Potassium 4.3 mmol/L (3.5-5.1); Sodium 140 mmol/L (136-145); Total Bilirubin 0.2 mg/dL (0.15-1.2); Total Protein 7.5 g/dL (6.6-8.7)
[2024-03-05 15:37] LABS: Basophils % 0.5 %; Eosinophils % 0.5 %; Hematocrit 43.6 % (36-47); Lymphocytes # 2.1 10^3/uL (0.8-4.8); Lymphocytes % 26.7 %; Mean Corpuscular HGB Conc 32.1 g/dL (30-55); Mean Corpuscular Hemoglobin 29.5 pg (27-33); Mean Platelet Volume 9.6 fL (7.4-10.4); Monocytes # 0.7 10^3/uL (0.2-0.9); Monocytes % 8.5 %; Neutrophils # 5.05 10^3/uL (1.8-7.7); Neutrophils % 62.9 %; Nucleated Red Blood Cells % 0 %; Platelet Count 270 10^3/cmm (157-399); Red Blood Count 4.74 10^6/uL (3.85-5.65); White Blood Count 8.02 10^3/uL (3.29-11.43)
[2024-03-05 15:54] LABS: Alanine Aminotransferase 34 U/L (0-33); Albumin Level 4.1 g/dL (3.5-5.2); Alkaline Phosphatase 196 U/L (35-105); Aspartate Amino Transferase 30 U/L (0-32); Blood Urea Nitrogen 18 mg/dL (8-23); Calcium 9.2 mg/dL (8.5-10.5); Carbon Dioxide 30 mmol/L (22-29); Chloride 99 mmol/L (98-107); Creatinine Clr Calc Pharmacy 60.6243; Globulin 3.6 g/dL (1.3-4.6); Glucose 151 mg/dL (65-115); Osmolality Calculated 293 mOsm/kg (285-295); Sodium 139 mmol/L (136-145); Total Bilirubin 0.2 mg/dL (0.15-1.2); Total Protein 7.7 g/dL (6.6-8.7)
--- NOTE | 2024-03-05 15:54 | ONCRAD TMN_ITS ---
Radiation Oncology Weekly Treatment Management Patient: Sharyn Garza MR#: [id number] : 1950 Attending Physician: Dr. 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 ID: [id number], Energy: 6X, Dose/Fx (cGy): 200, #Fx: 5 / 30, Dose Correction (cGy): 0, Total Dose Delivered (cGy): 1,000, Start Date: 02/28/2024, Elapsed Days: 6 Reason for visit: The patient is being seen today as part of their regularly scheduled weekly on treatment visits to assess for acute toxicities from radiotherapy. Review of Systems: Patient had a mild headache this morning took 2 Tylenol with good resolution Vital Signs: Performed on 03/05/2024 3:30 PM BMI - 35.978 kg/m2 (high), Height - 64 in, Weight - 209.6 lbs, Temperature - 96.3 f, Pulse - 83 /min, Respiration - 18 /min, O2 Sat - 97 %, Pain - 0, Fatigue - 5 and BP - 150/ 83 mm(hg)(high/). Physical Exam: Patient is no changes on exam Imaging: Radiation therapy imaging related to accurate target localization (i.e. KV, MV and CBCT) was reviewed. Appropriate changes, if any, were made to ensure treatment accuracy. Plan: Will continue with her treatments as planned. I did ask her to check with her [id number] to make sure she is not taking any additional steroids at this point. Signed by: Dr. Corrie Garcia 03/05/2024 3:52:45 PM
[2024-03-05 15:56] LABS: Anion Gap 14.2 (5-19); Potassium 4.2 mmol/L (3.5-5.1)
== END 2024-03-06 23:59 | disposition home or self-care (01) ==
PROVIDERS: Nurse Practitioner Family; PCP Internal Medicine; Visit Provider Radiology Radiation Oncology
DX: Z51.0 Encounter for antineoplastic radiation therapy (principal); C71.3 Malignant neoplasm of parietal lobe
CPT/HCPCS: 36415; 77300; 77301; 77334; 77338; 77386; 77470; 80053; 85025; 99024; 99205; 99214; 99215

== ENCOUNTER 2024-03-22 09:12 | Oncology outpatient (recurring) (ONCR) | payer MEDICARE, OTHER, SELFPAY ==
[2024-03-12 16:05] LABS: Basophils % 0.4 %; Eosinophils # 0.1 10^3/uL (0.0-0.8); Eosinophils % 1.8 %; Hematocrit 43.3 % (36-47); Lymphocytes # 1.7 10^3/uL (0.8-4.8); Lymphocytes % 23.7 %; Mean Corpuscular HGB Conc 32.3 g/dL (30-55); Mean Corpuscular Volume 92.9 fl (85-98); Mean Platelet Volume 9.8 fL (7.4-10.4); Monocytes # 0.7 10^3/uL (0.2-0.9); Monocytes % 9.6 %; Neutrophils # 4.66 10^3/uL (1.8-7.7); Neutrophils % 63.7 %; Nucleated Red Blood Cells % 0 %; Platelet Count 242 10^3/cmm (157-399); Red Blood Count 4.66 10^6/uL (3.85-5.65); Red Cell Distribution Width 13.4 % (12.1-15.1); White Blood Count 7.31 10^3/uL (3.29-11.43)
[2024-03-12 16:48] LABS: Alanine Aminotransferase 35 U/L (0-33); Alkaline Phosphatase 176 U/L (35-105); Anion Gap 15.1 (5-19); Aspartate Amino Transferase 33 U/L (0-32); Blood Urea Nitrogen 22 mg/dL (8-23); Carbon Dioxide 30 mmol/L (22-29); Chloride 104 mmol/L (98-107); Globulin 3.8 g/dL (1.3-4.6); Glucose 133 mg/dL (65-115); Osmolality Calculated 305 mOsm/kg (285-295); Potassium 4.1 mmol/L (3.5-5.1); Sodium 145 mmol/L (136-145); Total Bilirubin 0.2 mg/dL (0.15-1.2); Total Protein 7.8 g/dL (6.6-8.7)
--- NOTE | 2024-03-13 10:59 | ONCRAD TMN_ITS ---
Radiation Oncology Weekly Treatment Management Patient: Sharyn Garza MR#: [id number] : 1950 Attending Physician: Dr. 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 ID: [id number], Energy: 6X, Dose/Fx (cGy): 200, Fx: , Dose Correction (cGy): 0, Total Dose Delivered (cGy): 2,000, Start Date: 02/28/2024, Elapsed Days: 13 Reason for visit: The patient is being seen today as part of their regularly scheduled weekly on treatment visits to assess for acute toxicities from radiotherapy. Review of Systems: Patient denies any headaches or other changes Vital Signs: Performed on 03/12/2024 3:31 PM BMI - 36.012 kg/m2 (high), Height - 64 in, Weight - 209.8 lbs, Temperature - 97.7 f, Pulse - 81 /min, Respiration - 16 /min, O2 Sat - 96 %, Pain - 0, Fatigue - 0 and BP - 140/ 86 mm(hg). Physical Exam: No changes on exam Imaging: Radiation therapy imaging related to accurate target localization (i.e. KV, MV and CBCT) was reviewed. Appropriate changes, if any, were made to ensure treatment accuracy. Plan: Will continue with treatments as planned. I did ask her to check to see if she is still taking dexamethasone. She was unsure. I wrote it down on a piece of paper to remind her to look. Signed by: Dr. Corrie Garcia 03/13/2024 10:58:25 AM
--- NOTE | 2024-03-19 15:56 | ONCRAD TMN_ITS ---
Radiation Oncology Weekly Treatment Management Patient: Greg Jones MR#: [id number] : 1950> Attending Physician: Dr. 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 ID: [id number], Energy: 6X, Dose/Fx (cGy): 200, #Fx: 15 / 30, Dose Correction (cGy): 0, Total Dose Delivered (cGy): 3,000, Start Date: 02/28/2024, Elapsed Days: 20 Reason for visit: The patient is being seen today as part of their regularly scheduled weekly on treatment visits to assess for acute toxicities from radiotherapy. Review of Systems: Patient denies any headaches or nausea. Her appetite is good and good. She is not having any issues with the Temodar. She is beginning to lose some of her hair. Vital Signs: Performed on 03/19/2024 3:23 PM BMI - 35.6 kg/m2 (high), Height - 64 in, Weight - 207.4 lbs, Temperature - 96.6 f, Pulse - 89 /min, Respiration - 18 /min, O2 Sat - 97 %, Pain - 0, Fatigue - 0 and BP - 132/ 88 mm(hg). Physical Exam: No changes on exam. The skin is without changes. Imaging: Radiation therapy imaging related to accurate target localization (i.e. KV, MV and CBCT) was reviewed. Appropriate changes, if any, were made to ensure treatment accuracy. Plan: Continue with her treatments as planned. Signed by: Dr. Corrie Garcia 03/19/2024 3:54:53 PM
[2024-03-20 09:13] LABS: Basophils % 0.4 %; Eosinophils # 0.1 10^3/uL (0.0-0.8); Hematocrit 41.1 % (36-47); Lymphocytes # 1.7 10^3/uL (0.8-4.8); Lymphocytes % 30.2 %; Mean Corpuscular HGB Conc 32.6 g/dL (30-55); Mean Corpuscular Hemoglobin 30.3 pg (27-33); Mean Platelet Volume 9.8 fL (7.4-10.4); Monocytes # 0.6 10^3/uL (0.2-0.9); Monocytes % 10.7 %; Neutrophils # 3.11 10^3/uL (1.8-7.7); Neutrophils % 56.2 %; Nucleated Red Blood Cells % 0 %; Platelet Count 242 10^3/cmm (157-399); Red Blood Count 4.42 10^6/uL (3.85-5.65); Red Cell Distribution Width 13.3 % (12.1-15.1); White Blood Count 5.53 10^3/uL (3.29-11.43)
[2024-03-20 09:35] LABS: Alanine Aminotransferase 34 U/L (0-33); Alkaline Phosphatase 156 U/L (35-105); Anion Gap 15.8 (5-19); Aspartate Amino Transferase 33 U/L (0-32); Blood Urea Nitrogen 20 mg/dL (8-23); Calcium 8.7 mg/dL (8.5-10.5); Carbon Dioxide 25 mmol/L (22-29); Chloride 105 mmol/L (98-107); Creatinine Clr Calc Pharmacy 60.7982; Globulin 3.4 g/dL (1.3-4.6); Glucose 153 mg/dL (65-115); Osmolality Calculated 300 mOsm/kg (285-295); Potassium 3.8 mmol/L (3.5-5.1); Sodium 142 mmol/L (136-145); Total Bilirubin 0.3 mg/dL (0.15-1.2); Total Protein 7.4 g/dL (6.6-8.7)
== END 2024-03-23 23:59 | disposition home or self-care (01) ==
PROVIDERS: Internal Medicine Medical Oncology; PCP Internal Medicine; Visit Provider Radiology Radiation Oncology
DX: Z51.0 Encounter for antineoplastic radiation therapy (principal); C71.3 Malignant neoplasm of parietal lobe
CPT/HCPCS: 36415; 77336; 77386; 80053; 85025; 99024; 99213; 99214

== ENCOUNTER 2024-04-10 10:13 | Oncology outpatient (recurring) (ONCR) | payer MEDICARE, OTHER, SELFPAY ==
--- NOTE | 2024-03-27 08:57 | ONCRAD TMN_ITS ---
Radiation Oncology Weekly Treatment Management Patient: Sharyn Garza MR#: [id number] : 1950 Attending Physician: Dr. 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 ID: [id number], Energy: 6X, Dose/Fx (cGy): 200, #Fx: , Dose Correction (cGy): 0, Total Dose Delivered (cGy): 3,800, Start Date: 02/28/2024, Elapsed Days: 27 Reason for visit: The patient is being seen today as part of their regularly scheduled weekly on treatment visits to assess for acute toxicities from radiotherapy. Review of Systems: Patient is good spirits. She was quite busy this weekend did a lot of traveling and had lots of family and Vital Signs: Performed on 03/26/2024 3:40 PM BMI - 36.562 kg/m2 (high), Height - 64 in, Weight - 213 lbs, Temperature - 96.2 f, Pulse - 82 /min, Respiration - 16 /min, O2 Sat - 97 %, Pain - 0, Fatigue - 6 and BP - 131/ 78 mm(hg). Physical Exam: No changes on skin or exam Imaging: Radiation therapy imaging related to accurate target localization (i.e. KV, MV and CBCT) was reviewed. Appropriate changes, if any, were made to ensure treatment accuracy. Plan: Will continue with her treatments as planned. She should be completely off her steroids by now. Signed by: Dr. Corrie Garcia 03/27/2024 8:56:17 AM
[2024-03-27 10:54] LABS: Basophils % 0.5 %; Eosinophils # 0.1 10^3/uL (0.0-0.8); Eosinophils % 3.1 %; Hematocrit 38.9 % (36-47); Lymphocytes # 0.9 10^3/uL (0.8-4.8); Lymphocytes % 21.5 %; Mean Corpuscular HGB Conc 32.6 g/dL (30-55); Mean Corpuscular Hemoglobin 30.4 pg (27-33); Mean Corpuscular Volume 93.1 fl (85-98); Mean Platelet Volume 9.1 fL (7.4-10.4); Monocytes # 0.7 10^3/uL (0.2-0.9); Monocytes % 16.3 %; Neutrophils # 2.42 10^3/uL (1.8-7.7); Neutrophils % 57.9 %; Nucleated Red Blood Cells % 0 %; Platelet Count 180 10^3/cmm (157-399); Red Blood Count 4.18 10^6/uL (3.85-5.65); Red Cell Distribution Width 13.5 % (12.1-15.1); White Blood Count 4.18 10^3/uL (3.29-11.43)
[2024-03-27 11:12] LABS: Alanine Aminotransferase 28 U/L (0-33); Albumin Level 3.8 g/dL (3.5-5.2); Alkaline Phosphatase 149 U/L (35-105); Anion Gap 13.8 (5-19); Aspartate Amino Transferase 28 U/L (0-32); Blood Urea Nitrogen 18 mg/dL (8-23); Calcium 8.9 mg/dL (8.5-10.5); Carbon Dioxide 29 mmol/L (22-29); Chloride 104 mmol/L (98-107); Glucose 173 mg/dL (65-115); Osmolality Calculated 302 mOsm/kg (285-295); Potassium 3.8 mmol/L (3.5-5.1); Sodium 143 mmol/L (136-145); Total Bilirubin 0.2 mg/dL (0.15-1.2); Total Protein 6.8 g/dL (6.6-8.7)
[2024-04-02 15:05] LABS: Basophils % 0.3 %; Eosinophils # 0.1 10^3/uL (0.0-0.8); Eosinophils % 1.8 %; Hematocrit 40.4 % (36-47); Lymphocytes # 0.9 10^3/uL (0.8-4.8); Lymphocytes % 12.6 %; Mean Corpuscular HGB Conc 32.7 g/dL (30-55); Mean Corpuscular Hemoglobin 30.4 pg (27-33); Mean Corpuscular Volume 93.1 fl (85-98); Mean Platelet Volume 9.3 fL (7.4-10.4); Monocytes # 0.8 10^3/uL (0.2-0.9); Monocytes % 11.2 %; Neutrophils # 4.97 10^3/uL (1.8-7.7); Neutrophils % 73.5 %; Nucleated Red Blood Cells % 0 %; Platelet Count 137 10^3/cmm (157-399); Red Blood Count 4.34 10^6/uL (3.85-5.65); Red Cell Distribution Width 13.7 % (12.1-15.1); White Blood Count 6.76 10^3/uL (3.29-11.43)
[2024-04-02 15:22] LABS: Alanine Aminotransferase 30 U/L (0-33); Alkaline Phosphatase 153 U/L (35-105); Anion Gap 12.9 (5-19); Aspartate Amino Transferase 31 U/L (0-32); Blood Urea Nitrogen 15 mg/dL (8-23); Calcium 8.9 mg/dL (8.5-10.5); Carbon Dioxide 30 mmol/L (22-29); Chloride 101 mmol/L (98-107); Creatinine Clr Calc Pharmacy 69.7002; Globulin 3.4 g/dL (1.3-4.6); Glucose 141 mg/dL (65-115); Osmolality Calculated 293 mOsm/kg (285-295); Potassium 3.9 mmol/L (3.5-5.1); Sodium 140 mmol/L (136-145); Total Bilirubin 0.2 mg/dL (0.15-1.2); Total Protein 7.4 g/dL (6.6-8.7)
--- NOTE | 2024-04-02 15:43 | ONCRAD TMN_ITS ---
Radiation Oncology Weekly Treatment Management Patient: Sharyn Garza MR#: [id number] : 1950 Attending Physician: Dr. 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 ID: [id number], Energy: 6X, Dose/Fx (cGy): 200, #Fx: , Dose Correction (cGy): 0, Total Dose Delivered (cGy): 4,800, Start Date: 02/28/2024, Elapsed Days: 34 Reason for visit: The patient is being seen today as part of their regularly scheduled weekly on treatment visits to assess for acute toxicities from radiotherapy. Review of Systems: Patient is actually in good spirits. Her only complaint today she is more fatigued. She did feel like she was having some skin changes and was concerned that she might develop eczema. Her [id number] looked at it for her and said it looked fine. Vital Signs: Performed on 04/02/2024 3:03 PM BMI - 36.218 kg/m2 (high), Height - 64 in, Weight - 211 lbs, Temperature - 96.7 f, Pulse - 78 /min, Respiration - 16 /min, O2 Sat - 96 %, Pain - 0, Fatigue - 0 and BP - 140/ 83 mm(hg). Physical Exam: On exam she is beginning to develop alopecia through some of the radiation portals. There is no changes in the skin Imaging: Radiation therapy imaging related to accurate target localization (i.e. KV, MV and CBCT) was reviewed. Appropriate changes, if any, were made to ensure treatment accuracy. Plan: Will continue with her treatments as planned. She only has 6 treatments remaining. Signed by: Dr. Corrie Garcia 04/02/2024 3:41:46 PM
[2024-04-09 16:10] LABS: Basophils % 0.4 %; Eosinophils % 0.6 %; Hematocrit 42.4 % (36-47); Lymphocytes # 1.2 10^3/uL (0.8-4.8); Mean Corpuscular HGB Conc 32.3 g/dL (30-55); Mean Corpuscular Volume 92.8 fl (85-98); Mean Platelet Volume 9.4 fL (7.4-10.4); Monocytes # 0.6 10^3/uL (0.2-0.9); Monocytes % 10.9 %; Neutrophils % 65.7 %; Nucleated Red Blood Cells % 0 %; Platelet Count 132 10^3/cmm (157-399); Red Blood Count 4.57 10^6/uL (3.85-5.65); Red Cell Distribution Width 13.7 % (12.1-15.1); White Blood Count 5.32 10^3/uL (3.29-11.43)
[2024-04-09 16:24] LABS: Alanine Aminotransferase 30 U/L (0-33); Albumin Level 4.1 g/dL (3.5-5.2); Alkaline Phosphatase 147 U/L (35-105); Anion Gap 13.2 (5-19); Aspartate Amino Transferase 30 U/L (0-32); Blood Urea Nitrogen 19 mg/dL (8-23); Calcium 9.1 mg/dL (8.5-10.5); Carbon Dioxide 30 mmol/L (22-29); Chloride 104 mmol/L (98-107); Creatinine Clr Calc Pharmacy 68.0281; Globulin 3.4 g/dL (1.3-4.6); Glucose 182 mg/dL (65-115); Osmolality Calculated 303 mOsm/kg (285-295); Potassium 4.2 mmol/L (3.5-5.1); Sodium 143 mmol/L (136-145); Total Bilirubin 0.2 mg/dL (0.15-1.2); Total Protein 7.5 g/dL (6.6-8.7)
--- NOTE | 2024-04-10 08:20 | ONCRAD TMN_ITS ---
Radiation Oncology Weekly Treatment Management Patient: Sharyn Garza MR#: [id number] : 1950 Attending Physician: Dr. 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 ID: [id number], Energy: 6X, Dose/Fx (cGy): 200, #Fx: 29 / 30, Dose Correction (cGy): 0, Total Dose Delivered (cGy): 5,800, Start Date: 02/28/2024, Elapsed Days: 41 Reason for visit: The patient is being seen today as part of their regularly scheduled weekly on treatment visits to assess for acute toxicities from radiotherapy. Review of Systems: Patient is feeling fairly well today. Her energy level is a little better. Her hair has continued to thin. She does have occasional headaches which respond to Tylenol. Vital Signs: Performed on 04/09/2024 3:27 PM BMI - 36.047 kg/m2 (high), Height - 64 in, Weight - 210.0 lbs, Temperature - 96.8 f, Pulse - 87 /min, Respiration - 16 /min, O2 Sat - 94 % (low), Pain - 0, Fatigue - 0 and BP - 143/ 84 mm(hg)(high/). Physical Exam: She has some areas of hair loss but no real skin changes. Imaging: Radiation therapy imaging related to accurate target localization (i.e. KV, MV and CBCT) was reviewed. Appropriate changes, if any, were made to ensure treatment accuracy. Plan: Will continue with her treatments as planned. Will have her return in a month for follow-up or she will call if any problems arise in the interim. Signed by: Dr. Corrie Garcia 04/10/2024 8:19:24 AM
--- NOTE | 2024-04-10 13:00 | N.ONRD TS_ITS ---
Radiation Oncology Treatment Summary Patient: Sharyn Garza MR#: [id number] : 1950 Age: 73 Sex: Female Dictated by: Dr. 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 ID: [id number], Energy: 6X, Dose/Fx (cGy): 200, #Fx: 30 / 30, Dose Correction (cGy): 0, Total Dose Delivered (cGy): 6,000, Start Date: 02/28/2024, End Date: 04/10/2024, Elapsed Days: 42 Clinical Summary: The patient tolerated RT well. Patient tolerated her treatments well. Her only toxicity with her hair loss. She remained to good spirits and had no recurrence of symptoms. Plan: End of treatment today. Continue on the above medication until the skin reaction resolves. Follow up in one month. Signed by: Dr. Corrie Garcia>04/10/2024 12:59:37 PM <<Signature on File>>
== END 2024-04-10 23:59 | disposition home or self-care (01) ==
PROVIDERS: Nurse Practitioner Family; PCP Internal Medicine; Visit Provider Radiology Radiation Oncology
DX: Z51.0 Encounter for antineoplastic radiation therapy (principal); C71.3 Malignant neoplasm of parietal lobe; Z92.3 Personal history of irradiation; Z79.52 Long term (current) use of systemic steroids; Z79.899 Other long term (current) drug therapy
CPT/HCPCS: 36415; 77014; 77336; 77386; 80053; 85025; 99024; 99214

== ENCOUNTER → 2024-04-16 14:13 | Outpatient (BNVA) | payer MEDICARE, OTHER, SELFPAY | PROVIDERS: PCP Internal Medicine; Visit Provider Psychiatry & Neurology Neurology | DX: G40.901 Epilepsy, unspecified, not intractable, with status epilepticus (principal); I63.9 Cerebral infarction, unspecified | CPT/HCPCS: 99212; 99214 ==

== ENCOUNTER 2024-04-17 07:51 | Outpatient (CLI) | payer MEDICARE, OTHER, SELFPAY ==
[2024-04-17 08:32] LABS: Albumin Level 4.2 g/dL (3.5-5.2); Phenytoin Dilantin 7.6 ug/mL (10-20)
== END 2024-04-17 07:52 | disposition home or self-care (01) ==
LOC: RAD 07:52
PROVIDERS: PCP Internal Medicine; Visit Provider Psychiatry & Neurology Neurology
DX: G40.901 Epilepsy, unspecified, not intractable, with status epilepticus (principal)
CPT/HCPCS: 36415; 80177; 80185; 82040

== ENCOUNTER 2024-05-13 11:00 | Oncology outpatient (recurring) (ONCR) | payer MEDICARE, OTHER, SELFPAY ==
[2024-05-08 14:00] LABS: Basophils % 0.7 %; Eosinophils # 0.1 10^3/uL (0.0-0.8); Eosinophils % 2.2 %; Hematocrit 39.6 % (36-47); Lymphocytes % 23.8 %; Mean Corpuscular HGB Conc 34.3 g/dL (30-55); Mean Corpuscular Hemoglobin 30.7 pg (27-33); Mean Corpuscular Volume 89.4 fl (85-98); Mean Platelet Volume 9.2 fL (7.4-10.4); Monocytes # 0.6 10^3/uL (0.2-0.9); Monocytes % 14.8 %; Neutrophils # 2.38 10^3/uL (1.8-7.7); Neutrophils % 57.8 %; Nucleated Red Blood Cells % 0 %; Platelet Count 113 10^3/cmm (157-399); Red Blood Count 4.43 10^6/uL (3.85-5.65); Red Cell Distribution Width 13.3 % (12.1-15.1); White Blood Count 4.12 10^3/uL (3.29-11.43)
[2024-05-08 14:25] LABS: Alanine Aminotransferase 44 U/L (0-33); Albumin Level 4.4 g/dL (3.5-5.2); Alkaline Phosphatase 195 U/L (35-105); Anion Gap 13.8 (5-19); Aspartate Amino Transferase 38 U/L (0-32); Blood Urea Nitrogen 17 mg/dL (8-23); Calcium 9.3 mg/dL (8.5-10.5); Carbon Dioxide 28 mmol/L (22-29); Chloride 102 mmol/L (98-107); Creatinine Clr Calc Pharmacy 53.7263; Globulin 3.4 g/dL (1.3-4.6); Glucose 151 mg/dL (65-115); Osmolality Calculated 294 mOsm/kg (285-295); Potassium 3.8 mmol/L (3.5-5.1); Sodium 140 mmol/L (136-145); Total Bilirubin 0.3 mg/dL (0.15-1.2); Total Protein 7.8 g/dL (6.6-8.7)
--- NOTE | 2024-05-09 09:13 | ONCRAD EPV_ITS ---
Radiation Oncology Established Patient Visit Patient: Sharyn Garza [id number] : 1950 Age: 73 Sex: Female Dictated by: Dr. 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 ID: [id number], Energy: 6X, Dose/Fx (cGy): 200, #Fx: 30 / 30, Dose Correction (cGy): 0, Total Dose Delivered (cGy): 6,000, Start Date: 02/28/2024, End Date: 04/10/2024, Elapsed Days: 42 Current History: Patient returns today for her first month check after completing her radiation and Temodar for a GBM. Subjectively she is a little more fatigued than she was previously. She has occasional episodes of dizziness. She has seen medical oncology today and she will be starting her Temodar on a monthly basis. Current Medications: Allergies: Current Complaints / Review of Systems: . Vital Signs: Performed on 05/08/2024 1:45 PM BMI - 35.188 kg/m2 (high), Height - 64 in, Weight - 205 lbs, Temperature - 98.7 f, Pulse - 95 /min, Respiration - 17 /min, O2 Sat - 98 %, Pain - 0, Fatigue - 0 and BP - 147/ 84 mm(hg)(high/). Physical Exam: General: Alert and oriented x 3. No acute distress. HEENT: The right side of her scalp has developed alopecia. The underlying skin appears to be healthy without changes. NEUROLOGIC: She is alert and oriented. She does seem a little bit more frail today. Her gait is normal. Her speech is normal.. Performance Status: 80 Lab: None pending. Pathology: Primary, c71.3 - malignant neoplasm of parietal lobe, Diagnosed 02/21/2024 (active) . Imaging: See HPI Impression: GBM Plan at this point she will be starting her monthly Temodar. She will also be having an MRI done in the next week or 2. At this point she will be getting her Temodar for 6 months to a year. Will see her back once she is completed all of the Temodar. Signed by: 05/09/2024 9:11:35 AM <<Signature on File>> Time spent with patient:20 CPT Code: CPT Code:
--- NOTE | 2024-05-13 11:00 | MR_ITS ---
WS: [id number] MRI BRAIN WITHOUT CONTRAST HISTORY: C71.9 - Malignant neoplasm of brain, unspecified, history of prior brain neoplasm resection. COMPARISON: Prior CT 08/14/2023. No prior MRI examinations. TECHNIQUE: Diffusion imaging, multiplanar T1, T2 and FLAIR imaging obtained. No evidence for an acute infarct. Heterogeneous signal in the posterior RIGHT parietal occipital junc tion. Variable signal changes on all sequences. Hemosiderin is present within the heterogeneous lesio n. This is the site of a prior tumor resection. There is postoperative edema. Edema extends to the co rpus callosum. It is difficult to tell whether this is tumor infiltration or edema surrounding the tu mor. Heterogeneous signal in the central tumor bed. Postoperative collection measures 2.0 x 2.3 x 2.2 cm. There is no midline shift. No remote or acute infarcts are volume loss. Ventricles and extra-axial spaces are normal. No inferior displacement of cerebellar tonsils. The sella turcica and pituitary gland are unremarkabl e. Dural venous sinuses and [place] demonstrate no abnormality on this unenhanced studies. Paranasal sinuses: Clear. Mastoid air cells: Normal. Calvarium and scalp: Postoperative changes in the posterior RIGHT parietal bone at the tumor resectio n site. MR/MR head wo con* [id number] IMPRESSION: 1. No prior MRIs for comparison and this study was performed without IV contra st. 2. Tumor resection site is centered at the posterior RIGHT parotid occipital j unction with the central heterogeneous component measuring 2.0 x 2.3 x 2.2 cm. Large amount of surrounding edema extending to the corpus callosum. Without eduar or studies and without contrast residual tumor or persistent enhancement cannot be determined. 3. There is no hydrocephalus or midline shift.
== END 2024-05-23 23:59 | disposition home or self-care (01) ==
LOC: ONCMED 05-20 10:41
PROVIDERS: Internal Medicine Medical Oncology; PCP Internal Medicine; Visit Provider Psychiatry & Neurology Neurology
DX: C71.9 Malignant neoplasm of brain, unspecified (principal); G40.901 Epilepsy, unspecified, not intractable, with status epilepticus; I63.9 Cerebral infarction, unspecified; R60.1 Generalized edema; Z53.9 Procedure and treatment not carried out, unspecified reason
CPT/HCPCS: 36415; 70551; 80053; 85025; 99024; 99214

== ENCOUNTER 2024-06-05 12:25 | Oncology outpatient (recurring) (ONCR) | payer MEDICARE, OTHER, SELFPAY ==
[2024-06-05 12:56] LABS: Basophils % 0.2 %; Eosinophils # 0.1 10^3/uL (0.0-0.8); Eosinophils % 2.3 %; Hematocrit 34.6 % (36-47); Lymphocytes # 2.4 10^3/uL (0.8-4.8); Lymphocytes % 43.4 %; Mean Corpuscular HGB Conc 33.5 g/dL (30-55); Mean Corpuscular Hemoglobin 31.5 pg (27-33); Mean Platelet Volume 8.6 fL (7.4-10.4); Monocytes # 0.8 10^3/uL (0.2-0.9); Monocytes % 14.2 %; Neutrophils # 2.21 10^3/uL (1.8-7.7); Neutrophils % 39.7 %; Nucleated Red Blood Cells % 0 %; Platelet Count 74 10^3/cmm (157-399); Red Blood Count 3.68 10^6/uL (3.85-5.65); Red Cell Distribution Width 16.2 % (12.1-15.1); White Blood Count 5.57 10^3/uL (3.29-11.43)
[2024-06-05 12:59] LABS: Erythrocyte Sedimentation Rate 8 mm/hr (0-15)
[2024-06-05 13:21] LABS: Alanine Aminotransferase 30 U/L (0-33); Albumin Level 4.1 g/dL (3.5-5.2); Alkaline Phosphatase 206 U/L (35-105); Anion Gap 14.1 (5-19); Aspartate Amino Transferase 30 U/L (0-32); Blood Urea Nitrogen 9 mg/dL (8-23); Carbon Dioxide 28 mmol/L (22-29); Chloride 102 mmol/L (98-107); Creatinine Clr Calc Pharmacy 66.4619; Globulin 2.7 g/dL (1.3-4.6); Glucose 110 mg/dL (65-115); Lactate Dehydrogenase 262 U/L (135-214); Osmolality Calculated 289 mOsm/kg (285-295); Potassium 4.1 mmol/L (3.5-5.1); Sodium 140 mmol/L (136-145); Total Bilirubin 0.3 mg/dL (0.15-1.2); Total Protein 6.8 g/dL (6.6-8.7)
== END 2024-06-22 23:59 | disposition home or self-care (01) ==
PROVIDERS: Internal Medicine Hematology & Oncology; PCP Internal Medicine; Visit Provider Psychiatry & Neurology Neurology
DX: C71.3 Malignant neoplasm of parietal lobe; Z92.3 Personal history of irradiation; Z79.899 Other long term (current) drug therapy; Z53.9 Procedure and treatment not carried out, unspecified reason
CPT/HCPCS: 36415; 80053; 83615; 85025; 85651; 99214

== ENCOUNTER → 2024-06-25 12:44 | Outpatient (BNVA) | payer MEDICARE, OTHER, SELFPAY | PROVIDERS: PCP Internal Medicine; Visit Provider Psychiatry & Neurology Neurology | DX: G40.901 Epilepsy, unspecified, not intractable, with status epilepticus (principal) | CPT/HCPCS: 95819 ==

== ENCOUNTER 2024-07-12 13:46 | Outpatient (CLI) | payer MEDICARE, OTHER, SELFPAY ==
[2024-07-12 15:17] LABS: Phenytoin Dilantin 33.8 ug/mL (10-20)
== END 2024-07-12 13:47 | disposition home or self-care (01) ==
LOC: LAB 13:48
PROVIDERS: PCP Internal Medicine; Visit Provider Psychiatry & Neurology Neurology
DX: C71.9 Malignant neoplasm of brain, unspecified (principal); G40.901 Epilepsy, unspecified, not intractable, with status epilepticus; I63.9 Cerebral infarction, unspecified
CPT/HCPCS: 36415; 80185

== ENCOUNTER 2024-07-23 13:15 | Oncology outpatient (recurring) (ONCR) | payer MEDICARE, OTHER, SELFPAY ==
[2024-06-26 13:11] LABS: Basophils % 0.6 %; Eosinophils # 0.1 10^3/uL (0.0-0.8); Eosinophils % 1.9 %; Hematocrit 36.6 % (36-47); Lymphocytes # 1.4 10^3/uL (0.8-4.8); Lymphocytes % 25.7 %; Mean Corpuscular HGB Conc 34.7 g/dL (30-55); Mean Corpuscular Hemoglobin 34.1 pg (27-33); Mean Corpuscular Volume 98.4 fl (85-98); Mean Platelet Volume 8.6 fL (7.4-10.4); Monocytes # 0.9 10^3/uL (0.2-0.9); Monocytes % 16.8 %; Neutrophils # 2.88 10^3/uL (1.8-7.7); Neutrophils % 54.4 %; Nucleated Red Blood Cells % 0 %; Platelet Count 106 10^3/cmm (157-399); Red Blood Count 3.72 10^6/uL (3.85-5.65); Red Cell Distribution Width 15.9 % (12.1-15.1); White Blood Count 5.29 10^3/uL (3.29-11.43)
[2024-06-26 13:37] LABS: Alanine Aminotransferase 41 U/L (0-33); Albumin Level 4.3 g/dL (3.5-5.2); Alkaline Phosphatase 162 U/L (35-105); Anion Gap 14.7 (5-19); Aspartate Amino Transferase 36 U/L (0-32); Blood Urea Nitrogen 16 mg/dL (8-23); Calcium 9.5 mg/dL (8.5-10.5); Carbon Dioxide 28 mmol/L (22-29); Chloride 103 mmol/L (98-107); Creatinine Clr Calc Pharmacy 66.6361; Globulin 3.1 g/dL (1.3-4.6); Glucose 106 mg/dL (65-115); Lactate Dehydrogenase 249 U/L (135-214); Osmolality Calculated 296 mOsm/kg (285-295); Potassium 3.7 mmol/L (3.5-5.1); Sodium 142 mmol/L (136-145); Total Bilirubin 0.2 mg/dL (0.15-1.2); Total Protein 7.4 g/dL (6.6-8.7)
--- NOTE | 2024-07-03 11:00 | MR_ITS ---
WS: [id number] MRI HEAD WITH CONTRAST TECHNIQUE: Sagittal T1, T2 axial, T2 axial FLAIR, axial susceptibility weighted imaging, axial diffus ion weighted images, and coronal T2 images were obtained. Pre and post-T1 axial and post T1 coronal i mages. ADC and FSPGR images. CLINICAL INFORMATION: glioblastoma COMPARISON: MRI 05/13/2024. No other MRI comparisons. FINDINGS: Prior postoperative changes resection cavity at the RIGHT parieto-occipital junction. Associated hemo siderin in the resection cavity. Circumferential enhancement about the resection cavity likely postop erative and treatment related. Surrounding nonenhancing T2 signal normality involving the surrounding RIGHT posterior frontal parietal and temporo-occipital white matter. Nonenhancing T2 signal abnormal ity extends into the corpus callosum. Nonenhancing T2 signal abnormality has increased compared to pr evious likely due to treatment-related changes. Ventricular system remains patent. No hydrocephalus. Minimal mass effect on the RIGHT lateral ventricle and occipital horn. No other abnormal foci of enhancement. No restricted diffusion to suggest acute ischemia. No other si gnificant interval changes. MR/MR head wo/w con [id number] IMPRESSION: 1. Postoperative changes RIGHT parietal occipital resection cavity with associ ated hemosiderin. Resection cavity is similar to previous. 2. Circumferential enhancement about the resection cavity likely postoperative and treatment related. 3. Increasing surrounding nonenhancing T2 signal normality in the surrounding white matter presumably treatment related. This involves the RIGHT frontal nico etal and temporal occipital white matter and extends into the RIGHT splenium co rpus callosum. 4. Minimal mass effect on the RIGHT posterior lateral ventricle and occipital horn. No hydrocephalus or midline shift. 5. Recommend continued surveillance to assess change.
[2024-07-03] MEDS: gadobenate dimeglumine 20 mL vial IV (11:39)
[2024-07-23 13:22] LABS: Basophils % 0.4 %; Eosinophils # 0.1 10^3/uL (0.0-0.8); Eosinophils % 1.9 %; Hematocrit 36.3 % (36-47); Lymphocytes # 0.9 10^3/uL (0.8-4.8); Lymphocytes % 12.8 %; Mean Corpuscular Hemoglobin 33.9 pg (27-33); Mean Corpuscular Volume 96.8 fl (85-98); Mean Platelet Volume 9.3 fL (7.4-10.4); Monocytes # 0.7 10^3/uL (0.2-0.9); Monocytes % 9.6 %; Neutrophils # 5.38 10^3/uL (1.8-7.7); Neutrophils % 74.7 %; Nucleated Red Blood Cells % 0 %; Platelet Count 79 10^3/cmm (157-399); Red Blood Count 3.75 10^6/uL (3.85-5.65); Red Cell Distribution Width 13.5 % (12.1-15.1)
[2024-07-23 13:39] LABS: Alanine Aminotransferase 24 U/L (0-33); Albumin Level 4.2 g/dL (3.5-5.2); Alkaline Phosphatase 161 U/L (35-105); Anion Gap 17.7 (5-19); Aspartate Amino Transferase 22 U/L (0-32); Blood Urea Nitrogen 9 mg/dL (8-23); Calcium 9.3 mg/dL (8.5-10.5); Carbon Dioxide 23 mmol/L (22-29); Chloride 103 mmol/L (98-107); Creatinine Clr Calc Pharmacy 66.6361; Glucose 128 mg/dL (65-115); Lactate Dehydrogenase 251 U/L (135-214); Osmolality Calculated 290 mOsm/kg (285-295); Potassium 3.7 mmol/L (3.5-5.1); Sodium 140 mmol/L (136-145); Total Bilirubin 0.2 mg/dL (0.15-1.2); Total Protein 7.2 g/dL (6.6-8.7)
[2024-07-23 13:40] LABS: Phenytoin Dilantin 8.2 ug/mL (10-20)
== END 2024-07-23 23:59 | disposition home or self-care (01) ==
PROVIDERS: Internal Medicine Hematology & Oncology; Psychiatry & Neurology Neurology; PCP Internal Medicine; Visit Provider Internal Medicine Medical Oncology
DX: C71.9 Malignant neoplasm of brain, unspecified (principal); Z53.9 Procedure and treatment not carried out, unspecified reason
CPT/HCPCS: 36415; 70553; 80053; 80185; 83615; 85025; 99214

== ENCOUNTER 2024-07-26 11:38 | Outpatient (CLI) | payer MEDICARE, OTHER, SELFPAY ==
--- NOTE | 2024-07-26 11:54 | XRR_ITS ---
PROCEDURE INFORMATION: Exam: XR Left Humerus Exam date and time: 07/26/2024 12:03 PM Age: 73 years old Clinical indication: Injury or trauma; Blunt trauma (contusions or hematomas); Arm, upper; Injury date: 5 days ago; Injury details: Fall x 5 days, left sided pain and weakness from shoulder to femur; Patient HX: HX of brain cancer; Additional info: Left arm pain TECHNIQUE: Imaging protocol: Radiologic exam of the left humerus. Views: 2 or more views. COMPARISON: CR XR shoulder LT 1V [id number] 07/26/2024 12:03 PM FINDINGS: Bones/joints: Normal. Soft tissues: Normal. XR/[place] [id number] IMPRESSION: No acute findings.
--- NOTE | 2024-07-26 11:54 | XRR_ITS ---
PROCEDURE INFORMATION: Exam: XR Left Shoulder Exam date and time: 07/26/2024 12:03 PM Age: 73 years old Clinical indication: Injury or trauma; Blunt trauma (contusions or hematomas); Injury date: 5 days ago; Injury details: Fall x 5 days, left sided pain and weakness from shoulder to femur; Patient HX: HX of brain cancer; Additional info: Pain in left shoulder TECHNIQUE: Imaging protocol: Radiologic exam of the left shoulder. Views: 2 or more views. COMPARISON: [place] [id number] 07/26/2024 12:03 PM FINDINGS: Bones/joints: Normal. Soft tissues: Normal. XR/XR shoulder LT 1V [id number] IMPRESSION: No acute findings.
--- NOTE | 2024-07-26 11:54 | XRR_ITS ---
PROCEDURE INFORMATION: Exam: XR Left Femur Exam date and time: 07/26/2024 12:03 PM Age: 73 years old Clinical indication: Injury or trauma; Blunt trauma; Thigh or upper leg; Injury details: Fall x 5 days, left sided pain and weakness from shoulder to femur; Patient HX: HX of brain cancer; Additional info: Left leg pain TECHNIQUE: Imaging protocol: Radiologic exam of the left femur. Views: 2 views. COMPARISON: CR XR hip LT 2-3V wo/w pel* [id number] 07/04/2023 4:20 PM FINDINGS: Bones/joints: Unremarkable. No acute fracture. Soft tissues: Unremarkable. XR/XR femur LT min 2V* [id number] IMPRESSION: No acute findings.
--- NOTE | 2024-07-26 11:54 | XRR_ITS ---
PROCEDURE INFORMATION: Exam: XR Left Ribs Exam date and time: 07/26/2024 12:03 PM Age: 73 years old Clinical indication: Injury or trauma; Rib area, left side; Blunt trauma; Injury date: 5 days ago; Injury details: Fall x 5 days, left sided pain and weakness from shoulder to femur; Patient HX: HX of brain cancer; Additional info: Left rib pain TECHNIQUE: Imaging protocol: Radiologic exam of the left ribs. Views: 2 views. COMPARISON: CR XR chest 1V portable [id number] 06/25/2023 8:02 PM FINDINGS: Bones/joints: Normal. Soft tissues: Normal. XR/XR ribs LT 2V* [id number] IMPRESSION: No acute findings.
--- NOTE | 2024-07-26 11:54 | XRR_ITS ---
PROCEDURE INFORMATION: Exam: XR Left Forearm Exam date and time: 07/26/2024 12:03 PM Age: 73 years old Clinical indication: Injury or trauma; Blunt trauma (contusions or hematomas); Arm, lower; Injury date: 5 days ago; Injury details: Fall x 5 days, left sided pain and weakness from shoulder to femur; Patient HX: HX of brain cancer; Additional info: Left arm pain TECHNIQUE: Imaging protocol: Radiologic exam of the left forearm. Views: 2 views. COMPARISON: CR XR wrist LT min 3V* [id number] 07/26/2024 12:03 PM FINDINGS: Bones/joints: Normal. Soft tissues: Normal. XR/XR forearm LT 2V [id number] IMPRESSION: No acute findings.
--- NOTE | 2024-07-26 11:54 | XRR_ITS ---
PROCEDURE INFORMATION: Exam: XR Left Wrist Exam date and time: 07/26/2024 12:03 PM Age: 73 years old Clinical indication: Injury or trauma; Blunt trauma (contusions or hematomas); Wrist; Injury date: 5 days ago; Injury details: Fall x 5 days, left sided pain and weakness from shoulder to femur; Patient HX: HX of brain cancer; Additional info: Left arm pain TECHNIQUE: Imaging protocol: Radiologic exam of the left wrist. Views: 3 or more views. COMPARISON: CR XR forearm LT 2V [id number] 07/26/2024 12:03 PM FINDINGS: Bones/joints: No fracture or other acute abnormality. The bones appear mildly demineralized. Moderate degenerative changes are seen at the 1st SKILLED NURSING joint. Soft tissues: Normal. XR/XR wrist LT min 3V* [id number] IMPRESSION: Nonacute findings.
== END 2024-07-26 11:39 | disposition home or self-care (01) ==
LOC: RAD 11:44
PROVIDERS: PCP Internal Medicine; Visit Provider Nurse Practitioner Family
DX: M18.32 Unilateral post-traumatic osteoarthritis of first carpometacarpal joint, left hand (principal); R07.81 Pleurodynia; M25.512 Pain in left shoulder; M79.602 Pain in left arm; M79.605 Pain in left leg; W19.XXXA Unspecified fall, initial encounter
CPT/HCPCS: 71100; 73020; 73060; 73090; 73110; 73552

== ENCOUNTER 2024-07-27 11:50 | Emergency (ER) | payer MEDICARE, OTHER, SELFPAY ==
[2024-07-27] VITALS (11 sets, daily range): BP systolic 115–142; BP diastolic 32–89; PULSE 65–116; RESP 11–20; TEMP 36.6; O2SAT 92–99; BMI 33.5
--- NOTE | 2024-07-27 12:07 | XRR_ITS ---
PROCEDURE INFORMATION: Exam: XR Left Foot Exam date and time: 07/27/2024 12:11 PM Age: 73 years old Clinical indication: Injury or trauma; Fall; Blunt trauma; Toes; Left TECHNIQUE: Imaging protocol: Radiologic exam of the left foot. Views: 3 or more views. COMPARISON: US soft tissue/extremity [id number] 03/20/2019 7:17 AM FINDINGS: Bones/joints: Mild degenerative disease of the interphalangeal joints. Demineralization of the visualized bones, limiting sensitivity for nondisplaced fractures. Inferior calcaneal spur. Achilles enthesophyte. Soft tissues: Normal. XR/XR foot LT min 3V* [id number] IMPRESSION: No acute fracture or dislocation.
--- NOTE | 2024-07-27 12:07 | XRR_ITS ---
PROCEDURE INFORMATION: Exam: XR Chest Exam date and time: 07/27/2024 12:11 PM Age: 73 years old Clinical indication: Other: Weakness TECHNIQUE: Imaging protocol: Radiologic exam of the chest. Views: 1 view. COMPARISON: CR XR chest 1V portable [id number] 06/25/2023 8:02 PM FINDINGS: Lungs: Unremarkable. No consolidation. Pleural spaces: Unremarkable. No pleural effusion. No pneumothorax. Heart/Mediastinum: Unremarkable. No cardiomegaly. Bones/joints: Unremarkable. XR/XR chest 1V portable [id number] IMPRESSION: No acute cardiopulmonary process.
--- NOTE | 2024-07-27 12:07 | CTR_ITS ---
PROCEDURE INFORMATION: Exam: CT Head Without Contrast Exam date and time: 07/27/2024 12:12 PM Age: 73 years old Clinical indication: Stroke-like symptoms; Altered mental status/memory loss; Additional info: Fall, head injury, known glioblastoma, increased weakness TECHNIQUE: Imaging protocol: Computed tomography of the head without contrast. Radiation optimization: All CT scans at this facility use at least one of these dose optimization techniques: automated exposure control; mA and/or kV adjustment per patient size (includes targeted exams where dose is matched to clinical indication); or iterative reconstruction. Other technique: STROKE PROTOCOL was implemented. COMPARISON: MR head wo/w con [id number] 07/03/2024 11:27 AM RADIATION DOSE METRICS: Total DLP (mGy-cm): 1034.65 FINDINGS: Brain: Redemonstrated postsurgical changes of right parieto-occipital cavitary resection. There is increase in the edema in the right occipital, right parietal, right frontal lobe and right temporal lobe extending into the right basal ganglia. Increase in the midline shift from [id number]-[id number] measuring 8 mm. No intracranial bleed. Apparent increase in the size of the surgical cavity measuring 3.9 x 2.6 cm, previously 3.2 x 2.5 cm. Cerebral ventricles: Mild increase in the mass effect on the right lateral ventricle. Paranasal sinuses: Visualized sinuses are unremarkable. No fluid levels. Mastoid air cells: Visualized mastoid air cells are well aerated. Bones: Unremarkable. No acute fracture. Soft tissues: Unremarkable. CT/CT head wo con* [id number] IMPRESSION: 1. No large territorial infarct or intracranial bleed. 2. Increase in the hypodensities in the right cerebral hemisphere involving the right basal ganglia with increase in the [id number] midline shift. No uncal herniation. Findings are worrisome for progression of disease which assessment is limited on noncontrast study. ASSESSMENT: ASPECTS ([place] Stroke Program Early CT Score) is 10.
--- NOTE | 2024-07-27 12:09 | ECG_ITS ---
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 Measurements Intervals [place] Rate: 74 P: 66 ME: 200 QRS: 72 QRSD: 92 T: 75 QT: 384 QTc: 428 Interpretive Statements SINUS RHYTHM POSSIBLE RIGHT VENTRICULAR CONDUCTION DELAY [RSR (QR) IN V1/V2] Compared to ECG 06/25/2023 18:58:35 Incomplete right bundle-branch block no longer present ST (T wave) deviation no longer present Electronically Signed On 07-27-2024 21:32:15 LAUNDERER HAND by Alecia Ernst M.D. [id number]
--- NOTE | 2024-07-27 12:09 | ED_ITS ---
HPI - Neuro Symptoms/Deficit 2 General: Chief Complaint: Neuro Symptoms/Deficit Stated Complaint: left side weakness Time Seen by Provider: 07/27/24 12:03 History of Present Illness: 73-year-old female with a history of a r ight parietal glioblastoma status post multiple craniotomies who presents to the emergency room with worsening left- sided weakness. She had a fall about 24 hours ago. Family says over the last few days she has had worsening weakness but considerably in the last 24 hours after the fall. She also has left foot pain from when she dropped a jar on her foot. No facial droop. No altered mental status. No slurred speech. She has bruising down the left side of her body from falls. Family reports that she had an MRI done recently that showed no progression of disease. However she has been progressively more weak on her left side for couple of weeks now but after the fall she has become much worse. She is being treated with Temodar. Started her third cycle on 07/23. Related Data Home Medications Medication Instructions Recorded Confirmed levothyroxine 50 mcg capsule 50 mcg PO DAILY 10/13/22 07/23/24 amitriptyline 25 mg tablet 25 mg PO DAILY 10/09/23 07/23/24 levetiracetam 1,000 mg tablet 1,000 mg PO BID 10/09/23 07/23/24 metoprolol succinate 25 mg 25 mg PO BID 10/09/23 07/23/24 tablet,extended release 24 hr hydrocodone 5 mg-acetaminophen 325 tab PO 02/23/24 07/23/24 mg tablet mupirocin 2 % topical ointment topical 02/23/24 07/23/24 triamcinolone acetonide 0.1 % applic topical 02/23/24 07/23/24 topical cream Previous Rx's Medication Instructions Recorded lorazepam 1 mg tablet 0.5 mg (1/2 x 1 mg) PO Q6H PRN 02/29/24 Severe Nausea #30 tabs selenium 200 mcg capsule 200 mcg PO DAILY #30 caps 03/06/24 ondansetron 4 mg disintegrating 4 mg PO Q6H #30 tabs 03/18/24 tablet phenytoin 50 mg chewable tablet 50 mg PO .COMPLEX 90 days #270 tabs 04/16/24 (Dilantin Infatabs) phenytoin sodium extended 100 mg 100 mg PO TID 90 days #270 caps 04/16/24 capsule dexamethasone 2 mg tablet 2 mg PO DAILY #30 tabs 06/06/24 temozolomide 100 mg capsule 300 mg (3 x 100 mg) PO DAILY 5 06/26/24 days #15 caps clobazam 10 mg tablet 10 mg PO BID #60 tabs 07/16/24 Allergies Allergy/AdvReac Type Severity Reaction Status Date / Time adhesive tape Allergy Mild Unknown Verified 07/23/24 14:45 Review of Systems 2 Narrative: Constitutional symptoms: Negative except as documented in HPI. Skin symptoms: Negative except as documented in HPI. Eye symptoms: Negative except as documented in HPI. ENMT symptoms: Negative except as documented in HPI. Respiratory symptoms: Negative except as documented in HPI. Cardiovascular symptoms: Negative except as documented in HPI. Gastrointestinal symptoms: Negative except as documented in HPI. Genitourinary symptoms: Negative except as documented in HPI. Musculoskeletal symptoms: Negative except as documented in HPI. Neurologic symptoms: Negative except as documented in HPI. Psychiatric symptoms: Negative except as documented in HPI. Endocrine symptoms: Negative except as documented in HPI. PFSH ED 2 PFSH: Medical History Hypertension Hypothyroidism Surgical History History of craniotomy (08/25/23) History of craniotomy (01/31/24) History of left nephrectomy for kidney donation Family History Father Cerebral aneurysm Mother Diabetes Congestive heart failure (CHF) Renal failure Brother Diabetes Heart disease Social History Smoking and tobacco/nicotine status: never used tobacco/nicotine Alcohol intake: never Physical Exam 2 Narrative: EXAM NARRATIVE: General: Alert, no acute distress. Skin: Warm, dry. Head: Normocephalic, atraumatic. Neck: Supple, trachea midline. Eye: Extraocular movements are intact. Ears, nose, mouth and throat: mucosa moist. Cardiovascular: Regular, Normal peripheral perfusion. Respiratory: Lungs are clear to auscultation, respirations are non-labored, breath sounds are equal, Symmetrical chest wall expansion. Gastrointestinal: Soft, Nontender, Non distended Musculoskeletal: Normal ROM, no deformity. Neurological: Alert and oriented, patient has left arm and leg weakness. She is able to move. No sensory deficit. No facial droop. No altered mental status. No slurred speech. Psychiatric: Cooperative, appropriate mood & affect. Course 2 Vital Signs: Vital signs: Vital Signs Temperature 97.8 F 07/27/24 11:51 Pulse Rate 82 07/27/24 11:51 Respiratory Rate 18 07/27/24 11:51 Blood Pressure 126/88 07/27/24 11:51 Pulse Oximetry 92 07/27/24 11:51 Oxygen Delivery Me thod Room Air 07/27/24 11:51 MDM - Neuro Symptoms/Deficit Medical Decision Making Medical decision making: Differential diagnosis for patient with focal neurologic deficit(s) includes but not limited to and based on the above HPI, review of systems and physical exam: Worsening glioblastoma, intracranial hemorrhage secondary to fall, new stroke. Possible infection such as UTI, flu or COVID or even pneumonia. Orders placed to evaluate differential diagnosis based on the above differential, HPI and physical exam NIH Stroke Scale/Score (NIHSS) from [employer] on 07/27/2024 All calculations should be rechecked by clinician prior to use RESULT SUMMARY: 4 points NIH Stroke Scale INPUTS: 1A: Level of consciousness ?> 0 = Alert; keenly responsive 1B: Ask month and age ?> 0 = Both questions right 1C: 'Blink eyes' & 'squeeze hands' ?> 0 = Performs both tasks 2: Horizontal extraocular movements ?> 0 = Normal 3: Visual fallon ?> 0 = No visual loss 4: Facial palsy ?> 0 = Normal symmetry 5A: Left arm motor drift ?> 2 = Drift, hits bed 5B: Right arm motor drift ?> 0 = No drift for 10 seconds 6A: Left leg motor drift ?> 2 = Drift, hits bed 6B: Right leg motor drift ?> 0 = No drift for 5 seconds 7: Limb Ataxia ?> 0 = No ataxia 8: Sensation ?> 0 = Normal; no sensory loss 9: Language/aphasia ?> 0 = Normal; no aphasia 10: Dysarthria ?> 0 = Normal 11: Extinction/inattention ?> 0 = No abnormality EKG: Time 1233. Rate 74. Normal sinus rhythm, No ST-T changes, no ectopy, normal [place] & QRS intervals, This was reviewed and interpreted by myself the ER physician at 1236 Chest x-ray: No acute process. No infiltrate. No pneumothorax. This was reviewed and interpreted by myself the emergency room physician. I also reviewed the radiology report. X-ray of the left foot: No fractures or dislocations. This was reviewed and interpreted by myself the emergency room physician. I also reviewed the radiology report. CT of the head without contrast: This was ordered to rule out bleeds or large stroke. Also to evaluate progression of glioblastoma. Likely would be better evaluated with contrast but there is such a change that at this point she requires transfer and further imaging can be done at the receiving hospital. There is increased Lab Review: Laboratory results were reviewed and interpreted by myself the emergency room physician. Hemoglobin stable at 11.8. Stable thrombocytopenia with a platelet count of 86. No renal failure. Liver enzymes are normal. Urinalysis is negative for infection. Flu, COVID and RSV are negative. Consultation: I spoke with Dr. Navarrete with oncology who has been following with the patient. Given the fairly rapid changes in her head imaging he recommends she be transferred for neurosurgical evaluation. He agrees with Decadron here in the emergency room. Symptoms are matching changes on the CT scan. I have evaluated the MRI done on July 03 around 3 weeks ago and at that time there was no midline shift. There is now midline shift present. I reviewed the patient's medical record. I have evaluated previous imaging and previous clinic notes from oncology. Reexamination: No changes in patient's weakness since she has been here. She has no altered mental status. No slurred speech. She is weak in her left arm and leg. No increased work of breathing. No fevers. Consultation: I spoke with Taylor with the hospitalist service at [facility] who is accepted the patient. Assessment and plan: Glioblastoma multiforme Intracranial midline shift Left-sided weakness Multiple falls Foot injury -Patient is requiring transfer to tertiary care center for neurosurgical evaluation. She has been treated with craniotomy multiple times at [facility] in [place]. ?IV Decadron and IV Keppra. - Discussed findings and plan with patient. Answered any questions. - All laboratory values were reviewed and interpreted personally by myself, the ER physician - All imaging was reviewed and interpreted personally by myself, the ER physician. - Evaluation and treatment of this problem were appropriate in the emergency setting Critical care -I spent a total of >35 minutes of critical care time managing the patient, independent of any other practitioner. -The time involved in the performance of separately reportable procedures was not counted towards critical care time. Lab Data 07/27/24 12:36 07/27/24 12:36 Radiology Impressions Chest X-Ray 07/27/24 12:07 IMPRESSION: No acute cardiopulmonary process. Foot X-Ray 07/27/24 12:07 IMPRESSION: No acute fracture or dislocation. Head CT 07/27/24 12:07 IMPRESSION: 1. No large territorial infarct or intracranial bleed. 2. Increase in the hypodensities in the right cerebral hemisphere involving the right basal ganglia with increase in the [id number]-[id number] midline shift. No uncal herniation. Findings are worrisome for progression of disease which assessment is limited on noncontrast study. ASSESSMENT: ASPECTS ([place] Stroke Program Early CT Score) is 10. ADDENDUM: 07/27/24 7636 THIS REPORT CONTAINS FINDINGS THAT MAY BE CRITICAL TO PATIENT CARE. The findings were verbally communicated via telephone conference with SANDRO SPAIN at 12:35 PM VAMP LINER on 07/27/2024. The findings were acknowledged and understood. Laboratory Results WBC 7.43 10^3/uL (3.29-11.43) 07/27/24 12:36 RBC 3.51 10^6/uL (3.85-5.65) L 07/27/24 12:36 Hgb 11.80 g/dL (11.27-16.99) 07/27/24 12:36 Hct 33.9 % (36-47) L 07/27/24 12:36 MCV 96.6 fl (85-98) 07/27/24 12:36 MCH 33.6 pg (27-33) H 07/27/24 12:36 MCHC 34.8 g/dL (30-55) 07/27/24 12:36 RDW 13.6 % (12.1-15.1) 07/27/24 12:36 Plt Count 86 10^3/cmm (157-399) L 07/27/24 12:36 MPV 9.0 fL (7.4-10.4) 07/27/24 12:36 Neut % (Auto) 81.6 % 07/27/24 12:36 Lymph % (Auto) 7.0 % 07/27/24 12:36 [place] % (Auto) 7.9 % 07/27/24 12:36 Eos % (Auto) 2.3 % 07/27/24 12:36 Baso % (Auto) 0.3 % 07/27/24 12:36 Neut # (Auto) 6.06 10^3/uL (1.8-7.7) 07/27/24 12:36 Lymph # (Auto) 0.5 10^3/uL (0.8-4.8) L 07/27/24 12:36 [place] # (Auto) 0.6 10^3/uL (0.2-0.9) 07/27/24 12:36 Eos # (Auto) 0.2 10^3/uL (0.0-0.8) 07/27/24 12:36 Baso # (Auto) 0.0 10^3/uL (0.0-0.1) 07/27/24 12:36 Nucleated RBC % (auto) 0 % 07/27/24 12:36 Nucleated RBCs # 0.0 /100WBC 07/27/24 12:36 PT 13.40 SECONDS (12.1-14.9) 07/27/24 12:36 INR 0.96 (0.8-1.2) 07/27/24 12:36 APTT 23.2 SECONDS (23.9-36.7) L 07/27/24 12:36 Sodium 138 mmol/L (136-145) 07/27/24 12:36 Potassium 3.8 mmol/L (3.5-5.1) 07/27/24 12:36 Chloride 99 mmol/L (98-107) 07/27/24 12:36 Carbon Dioxide 25 mmol/L (22-29) 07/27/24 12:36 Anion Gap 17.8 (5-19) 07/27/24 12:36 BUN 10 mg/dL (8-23) 07/27/24 12:36 Creatinine 0.7 mg/dL (0.5-0.9) 07/27/24 12:36 GFR Calculation Not Reportable 07/27/24 12:36 Glucose 155 mg/dL (65-115) H 07/27/24 12:36 POC Glucose 178 mg/dL (70-110) H 07/27/24 11:57 Calculated Osmolality 288 mOsm/kg (285-295) 07/27/24 12:36 Lactic Acid 3.2 mmol/L (0.5-2.2) H 07/27/24 12:36 Calcium 9.0 mg/dL (8.5-10.5) 07/27/24 12:36 Total Bilirubin 0.4 mg/dL (0.15-1.2) 07/27/24 12:36 AST 28 U/L (0-32) 07/27/24 12:36 ALT 26 U/L (0-33) 07/27/24 12:36 Alkaline Phosphatase 150 U/L (35-105) H 07/27/24 12:36 Troponin T Baseline 7 ng/L (0-10) 07/27/24 12:36 Total Protein 6.7 g/dL (6.6-8.7) 07/27/24 12:36 Albumin 4.1 g/dL (3.5-5.2) 07/27/24 12:36 Globulin 2.6 g/dL (1.3-4.6) 07/27/24 12:36 Urine Color Yellow (Yellow) 07/27/24 13:05 Urine Appearance Clear (CLEAR) 07/27/24 13:05 Urine pH 5.5 (5-7) 07/27/24 13:05 Ur Specific [place] 1.005 (1.005-1.030) 07/27/24 13:05 Urine Protein Negative (Negative) 07/27/24 13:05 Urine Glucose (UA) Negative (Normal) 07/27/24 13:05 Urine Ketones Negative (Negative) 07/27/24 13:05 Urine Blood Negative (Negative) 07/27/24 13:05 Urine Nitrate Negative (Negative) 07/27/24 13:05 Urine Bilirubin Negative (Negative) 07/27/24 13:05 Urine Urobilinogen 0.2 mg/dL (Negative) 07/27/24 13:05 Ur Leukocyte Esterase Negative (Negative) 07/27/24 13:05 Urine RBC 3-5 /hpf (0-2) 07/27/24 13:05 Urine WBC 0-5 /hpf (0-5) 07/27/24 13:05 Ur Squamous Epith Cells 0-5 /hpf (0-5) 07/27/24 13:05 Amorphous Sediment Not Reportable 07/27/24 13:05 Urine Bacteria None seen /hpf (NONE) 07/27/24 13:05 Hyaline Casts 0-4 /lpf H 07/27/24 13:05 Coronavirus (PCR) Negative (Negative) 07/27/24 12:55 Influenza A (PCR) Negative (Negative) 07/27/24 12:55 Influenza Type B (PCR) Negative (Negative) 07/27/24 12:55 RSV (PCR) Negative (Negative) 07/27/24 12:55 Blood Type A Positive 07/27/24 12:36 Rho(D) Type Rh positive 07/27/24 12:36 Antibody Screen Negative 07/27/24 12:36 All radiology interpretation(s) finalized by discharge Discharge Plan Discharge Patient Disposition: Xfer Short-Term Hosp Clinical Impression: Glioblastoma multiforme, Midline shift of brain, Left-sided weakness, Multiple falls, History of seizures Condition: Stable Referrals: Alma Mckay MD [Primary Care Provider] - Coding Level of Care Code ED Assistant Womens Volleyball Coach for Agustín Ortiz
[2024-07-27 12:10] LABS: Glucose Point of Care 178 mg/dL (70-110)
--- NOTE | 2024-07-27 12:13 | PC.NURSE ---
this rn called stroke alert at 121
[2024-07-27 12:46] LABS: Basophils % 0.3 %; Eosinophils # 0.2 10^3/uL (0.0-0.8); Eosinophils % 2.3 %; Hematocrit 33.9 % (36-47); Lymphocytes # 0.5 10^3/uL (0.8-4.8); Mean Corpuscular HGB Conc 34.8 g/dL (30-55); Mean Corpuscular Hemoglobin 33.6 pg (27-33); Mean Corpuscular Volume 96.6 fl (85-98); Monocytes # 0.6 10^3/uL (0.2-0.9); Monocytes % 7.9 %; Neutrophils # 6.06 10^3/uL (1.8-7.7); Neutrophils % 81.6 %; Nucleated Red Blood Cells % 0 %; Platelet Count 86 10^3/cmm (157-399); Red Blood Count 3.51 10^6/uL (3.85-5.65); Red Cell Distribution Width 13.6 % (12.1-15.1); White Blood Count 7.43 10^3/uL (3.29-11.43)
[2024-07-27] MEDS: levETIRAcetam 1,000 MG/100 ML PREMIX 400 MG IV (13:12)
[2024-07-27] MEDS: dexamethasone 10 mg/mL INJ IVP (13:12)
[2024-07-27 13:13] LABS: INR 0.96 (0.8-1.2); Partial Thromboplastin Time 23.2 SECONDS (23.9-36.7)
[2024-07-27 13:17] LABS: Troponin(5th) Baseline 7 ng/L (0-10)
[2024-07-27 13:19] LABS: Lactic Sepsis W/Reflex 3.2 mmol/L (0.5-2.2)
[2024-07-27 13:20] LABS: Alanine Aminotransferase 26 U/L (0-33); Albumin Level 4.1 g/dL (3.5-5.2); Alkaline Phosphatase 150 U/L (35-105); Anion Gap 17.8 (5-19); Aspartate Amino Transferase 28 U/L (0-32); Blood Urea Nitrogen 10 mg/dL (8-23); Carbon Dioxide 25 mmol/L (22-29); Chloride 99 mmol/L (98-107); Creatinine Clr Calc Pharmacy 65.4179; Globulin 2.6 g/dL (1.3-4.6); Glucose 155 mg/dL (65-115); Osmolality Calculated 288 mOsm/kg (285-295); Potassium 3.8 mmol/L (3.5-5.1); Sodium 138 mmol/L (136-145); Total Bilirubin 0.4 mg/dL (0.15-1.2); Total Protein 6.7 g/dL (6.6-8.7)
[2024-07-27 13:22] LABS: Bilirubin Urine Negative (Negative); Blood Urine Negative (Negative); Glucose Urine UA Negative (Normal); Ketones Urine Negative (Negative); Leukocyte Esterase Urine Negative (Negative); Nitrate Urine Negative (Negative); Protein Urine Negative (Negative); Specific Gravity, Urine 1.005 (1.005-1.030); Urine Appearance Clear (CLEAR); Urine Color Yellow (Yellow); Urobilinogen Urine 0.2 mg/dL (Negative); pH Urine 5.5 (5-7)
[2024-07-27 13:27] LABS: Bacteria Urine None Seen /hpf; Hyaline Casts Urine 0-4 /lpf; Squamous Epithelial Cell Urine 0-5 /hpf (0-5); WBC Urine 0-5 /hpf (0-5)
[2024-07-27 13:53] LABS: Covid PCR NEGATIVE (Negative); Influenza A NEGATIVE (Negative); Influenza B NEGATIVE (Negative); Respiratory Syncytial Virus Ce NEGATIVE (Negative)
--- NOTE | 2024-07-27 14:18 | ECG_ITS ---
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 Measurements Intervals [place] Rate: 69 P: 54 MO: 195 QRS: 52 QRSD: 92 T: 57 QT: 400 QTc: 430 Interpretive Statements SINUS RHYTHM POSSIBLE RIGHT VENTRICULAR CONDUCTION DELAY [RSR (QR) IN V1/V2] Compared to ECG 07/27/2024 12:33:38 No significant changes Electronically Signed On 07-28-2024 13:36:09 LEGAL FINANCIAL SPECIALIST by Alecia Ernst M.D. [email or web address]
[2024-07-27 14:30] LABS: Reflex Lactate Order REFLEX LACTIC ORDERD
[2024-07-27 15:07] LABS: Lactic Acid level (Lactate) 1.6 mmol/L (0.5-2.2)
--- NOTE | 2024-07-27 17:56 | ECG_ITS ---
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 Measurements Intervals [place] Rate: 80 P: 59 [place]: 188 QRS: 54 QRSD: 88 T: 66 QT: 381 QTc: 440 Interpretive Statements SINUS RHYTHM POSSIBLE RIGHT VENTRICULAR CONDUCTION DELAY [RSR (QR) IN V1/V2] Compared to ECG 07/27/2024 14:18:01 No significant changes Electronically Signed On 07-28-2024 13:36:11 HOOP PUNCHER by Alecia Ernst M.D. [email or web address]
== END 2024-07-27 19:39 | disposition short-term general hospital (02) ==
PROVIDERS: Emergency Provider Emergency Medicine; PCP Internal Medicine
DX: C71.9 Malignant neoplasm of brain, unspecified (principal); R53.1 Weakness; R29.6 Repeated falls; Z11.52 Encounter for screening for COVID-19; I10 Essential (primary) hypertension
CPT/HCPCS: 36415; 36416; 70450; 71045; 73630; 80053; 81001; 82962; 83605; 84484; 85025; 85610; 85730; 86850; 86900; 87040; 87637; 93005; 96365; 96366; 96375; 99285; J1100; J1953

== ENCOUNTER 2024-08-20 11:54 | Oncology outpatient (recurring) (ONCR) | payer MEDICARE, OTHER, SELFPAY ==
[2024-08-20 12:21] LABS: Basophils % 0.4 %; Eosinophils # 0.1 10^3/uL (0.0-0.8); Eosinophils % 1.5 %; Lymphocytes # 0.9 10^3/uL (0.8-4.8); Lymphocytes % 19.7 %; Mean Corpuscular HGB Conc 33.6 g/dL (30-55); Mean Corpuscular Hemoglobin 34.8 pg (27-33); Mean Corpuscular Volume 103.7 fl (85-98); Monocytes # 0.7 10^3/uL (0.2-0.9); Monocytes % 14.9 %; Neutrophils # 2.95 10^3/uL (1.8-7.7); Neutrophils % 61.6 %; Nucleated Red Blood Cells % 0 %; Platelet Count 103 10^3/cmm (157-399); Red Blood Count 3.76 10^6/uL (3.85-5.65); White Blood Count 4.78 10^3/uL (3.29-11.43)
[2024-08-20 12:39] LABS: Alanine Aminotransferase 35 U/L (0-33); Albumin Level 3.7 g/dL (3.5-5.2); Alkaline Phosphatase 141 U/L (35-105); Blood Urea Nitrogen 15 mg/dL (8-23); Carbon Dioxide 26 mmol/L (22-29); Chloride 104 mmol/L (98-107); Creatinine Clr Calc Pharmacy 65.4179; Glucose 117 mg/dL (65-115); Osmolality Calculated 292 mOsm/kg (285-295); Sodium 140 mmol/L (136-145); Total Bilirubin 0.2 mg/dL (0.15-1.2); Total Protein 6.7 g/dL (6.6-8.7)
[2024-08-20 12:44] LABS: Anion Gap 13.4 (5-19); Aspartate Amino Transferase 24 U/L (0-32); Potassium 3.4 mmol/L (3.5-5.1)
== END 2024-08-23 23:59 | disposition home or self-care (01) ==
PROVIDERS: PCP Internal Medicine; Visit Provider Internal Medicine Medical Oncology
DX: C71.9 Malignant neoplasm of brain, unspecified (principal); G40.901 Epilepsy, unspecified, not intractable, with status epilepticus; E03.9 Hypothyroidism, unspecified; R41.3 Other amnesia; D69.6 Thrombocytopenia, unspecified; Z98.890 Other specified postprocedural states
CPT/HCPCS: 36415; 80053; 85025; 99212; 99214

== ENCOUNTER 2024-09-05 10:57 | Emergency (ER) | payer MEDICARE, OTHER, SELFPAY ==
[2024-09-05] VITALS (14 sets, daily range): BP systolic 131–160; BP diastolic 77–108; PULSE 54–89; RESP 13–20; TEMP 36.8; O2SAT 91–96; BMI 30.9
--- NOTE | 2024-09-05 11:17 | W.ED.WEAKNES ---
HPI - Weakness General: Chief complaint: Weakness Stated complaint: weakness, CASH Time Seen by Provider: 09/05/24 11:16 History of Present Illness: Patient is known glioblastoma multiforme currently on treatment. Is seeing a Dr. Stanton neurosurgeon in [facility], has had a consult with the cancer center in [place], within the last several weeks patient has developed left-sided deficit and right-sided vision disturbances. Over the last several days patient has had a unrelenting headache in a bandlike fashion around the front of her head and worsening of her left-sided deficits and worsening of her right-sided vision. Patient does have some left-sided facial droop noted. Per record it appears patient may be undergoing chemotherapy and radiation with Temodar has been send patient usually uses walker or cane and gets around with minimal problem but is now unable to get around without max assist Review of Systems General: Reports: 10 or more systems reviewed and unremarkable except in HPI and below PFSH ED PFSH: Medical History Hypertension Hypothyroidism Surgical History History of craniotomy (08/25/23) History of craniotomy (01/31/24) History of left nephrectomy for kidney donation Family History Father Cerebral aneurysm Mother Diabetes Congestive heart failure (CHF) Renal failure Brother Diabetes Heart disease Social History Smoking and tobacco/nicotine status: never used tobacco/nicotine Alcohol intake: never Physical Exam Const: COMMON NORMALS: no acute distress, average body habitus, patient oriented x3, no limitations, healthy appearing, alert and well nourished HENMT: COMMON NORMALS: normocephalic, atraumatic, hearing grossly normal bilaterally, external ears normal, Normal external nose present, moist oral mucous membranes and oropharynx normal HEAD & SCALP: normocephalic and atraumatic NOSE: Normal external nose present EXTERNAL EAR: Yes external ears normal Eye: COMMON NORMALS: Equal, round and reactive pupils present, EOMs intact bilaterally, conjunctivae normal and no scleral icterus CONJUNCTIVA: Yes conjunctivae normal PUPIL: Yes Equal, round and reactive pupils present Neck/C-Spine: COMMON NORMALS: no JVD Chest: COMMONS NORMALS: normal inspection of the chest and normal palpation of entire chest wall Resp: COMMON NORMALS: normal respiratory effort, No retractions, No use of accessory muscles and clear to auscultation bilaterally AUSCULTATION: clear to auscultation bilaterally Cardio: COMMON NORMALS: no JVD, regular rate, regular rhythm, S1 normal heart sound present, S2 normal heart sound present, No gallops present (Cardio), No clicks present (Cardio), No murmurs present (Cardio) and No rub (Cardio) RATE: regular rate RHYTHM: regular rhythm HEART SOUNDS: S1 normal heart sound present and S2 normal heart sound present GI: COMMON NORMALS: Normal to inspection, nondistended, normoactive bowel sounds present, Soft to palpation, non-tender, No hepatosplenomegaly present and no masses PALPATION: Yes Soft to palpation and Yes No hepatosplenomegaly present Neuro: COMMON NORMALS: patient oriented x3 SENSORIUM/ORIENTATION: Yes alert Course Vital Signs: Vital signs: Vital Signs Temperature 98.2 F 09/05/24 10:58 Pulse Rate 67 09/05/24 22:13 Respiratory Rate 13 09/05/24 22:13 Blood Pressure 160/84 09/05/24 22:13 Pulse Oximetry 94 09/05/24 22:13 Oxygen Delivery Me thod Room Air 09/05/24 20:46 MDM - Weakness Medical Decision Making We will push the CT images to the cloud, I will discuss it with her neurosurgeon Dr. Stanton at [facility]. We will give her 10 mg Decadron IV and 1/2 mg Dilaudid, discussed case with the kiln transfer operator who tried to get hold with Dr. Stanton but got a hold of Dr. Walker neurosurgeon he wanted him to be in ER to ER transfer but they are on divert so then he requested an MRI with and without contrast and may be by the time he is able to look at the films they will be off divert. Dr. Walker look at the MRI says he wants her admitted to medicine, I discussed the case with Taylor Haile nurse practitioner for the medical team who accepted in transition. Lab Data 09/05/24 11:58 09/05/24 11:[address] 09/05/24 11:17 IMPRESSION: 1. Stable postoperative changes resection cavity RIGHT parietal occipital junction. 2. No hemorrhage. 3. Diffuse low-attenuation change in the RIGHT hemisphere slightly progressed compared to 07/27/2024. 4. Persistent mass effect on the RIGHT lateral ventricle with RIGHT to LEFT midline shift measuring 9 mm is slightly progressed compared to previous 5. Effacement of the third ventricle. Patient at risk for trapping of the LEFT lateral ventricle although stable compared to previous. 6. Slight effacement of the suprasellar cistern due to supratentorial mass effect. This is slightly progressed compared to previous. 7. Basal cisterns otherwise patent. Notified Amadeo Knox DO at 09/05/2024 12:02 PM. Head MRI 09/05/24 13:46 IMPRESSION: 1. Significant progression of cerebral edema centered in the RIGHT frontal, temporal and occipital lobes. 2. New RIGHT to LEFT midline shift by 10 mm with partial entrapment of the third ventricle and near complete effacement of the RIGHT lateral ventricle. 3. Peripherally enhancing tumor centered in the RIGHT temporal lobe measures 4.3 x 3.2 x 2.3 cm with extension into the corpus callosum has progressed since 07/03/2024. 4. RIGHT uncal herniation and effacement of the suprasellar cistern and mass effect upon the midbrain. Laboratory Results WBC 4.46 10^3/uL (3.29-11.43) 09/05/24 11:58 RBC 3.76 10^6/uL (3.85-5.65) L 09/05/24 11:58 Hgb 13.10 g/dL (11.27-16.99) 09/05/24 11:58 Hct 37.9 % (36-47) 09/05/24 11:58 MCV 100.8 fl (85-98) H 09/05/24 11:58 MCH 34.8 pg (27-33) H 09/05/24 11:58 MCHC 34.6 g/dL (30-55) 09/05/24 11:58 RDW 13.7 % (12.1-15.1) 09/05/24 11:58 Plt Count 105 10^3/cmm (157-399) L 09/05/24 11:58 MPV 8.9 fL (7.4-10.4) 09/05/24 11:58 Neut % (Auto) 57.5 % 09/05/24 11:58 Lymph % (Auto) 22.4 % 09/05/24 11:58 Garden % (Auto) 17.9 % 09/05/24 11:58 Eos % (Auto) 0.7 % 09/05/24 11:58 Baso % (Auto) 0.2 % 09/05/24 11:58 Neut # (Auto) 2.56 10^3/uL (1.8-7.7) 09/05/24 11:58 Lymph # (Auto) 1.0 10^3/uL (0.8-4.8) 09/05/24 11:58 Garden # (Auto) 0.8 10^3/uL (0.2-0.9) 09/05/24 11:58 Eos # (Auto) 0.0 10^3/uL (0.0-0.8) 09/05/24 11:58 Baso # (Auto) 0.0 10^3/uL (0.0-0.1) 09/05/24 11:58 Nucleated RBC % (auto) 0 % 09/05/24 11:58 Nucleated RBCs # 0.0 /100WBC 09/05/24 11:58 PT 14.20 SECONDS (12.1-14.9) 09/05/24 11:58 INR 1.03 (0.8-1.2) 09/05/24 11:58 Sodium 138 mmol/L (136-145) 09/05/24 11:58 Potassium 3.2 mmol/L (3.5-5.1) L 09/05/24 11:58 Chloride 98 mmol/L (98-107) 09/05/24 11:58 Carbon Dioxide 27 mmol/L (22-29) 09/05/24 11:58 Anion Gap 16.2 (5-19) 09/05/24 11:58 BUN 11 mg/dL (8-23) 09/05/24 11:58 Creatinine 0.6 mg/dL (0.5-0.9) 09/05/24 11:58 GFR Calculation Not Reportable 09/05/24 11:58 Glucose 120 mg/dL (65-115) H 09/05/24 11:58 Calculated Osmolality 287 mOsm/kg (285-295) 09/05/24 11:58 Calcium 9.2 mg/dL (8.5-10.5) 09/05/24 11:58 Total Bilirubin 0.5 mg/dL (0.15-1.2) 09/05/24 11:58 AST 20 U/L (0-32) 09/05/24 11:58 ALT 19 U/L (0-33) 09/05/24 11:58 Alkaline Phosphatase 167 U/L (35-105) H 09/05/24 11:58 Troponin T Baseline 10 ng/L (0-10) 09/05/24 11:58 Troponin T 120 Minute 8.68 ng/L (0-10) 09/05/24 15:32 Delta Troponin T -1.32 ABS# (0-10) L 09/05/24 15:32 Troponin T Hi Sens 6Hr 6.45 ng/L (0-10) 09/05/24 18:48 Troponin T Hi Sens 6Hr Delta -3.55 ng/L (0-12) L 09/05/24 18:48 C-Reactive Protein 3.5 mg/L (0.0-4.9) 09/05/24 11:58 Total Protein 7.0 g/dL (6.6-8.7) 09/05/24 11:58 Albumin 4.1 g/dL (3.5-5.2) 09/05/24 11:58 Globulin 2.9 g/dL (1.3-4.6) 09/05/24 11:58 TSH 2.85 uIU/mL (0.27-4.20) 09/05/24 11:58 Urine Color Yellow (Yellow) 09/05/24 17:24 Urine Appearance Cloudy (CLEAR) A 09/05/24 17:24 Urine pH 7.0 (5-7) 09/05/24 17:24 Ur Specific [place] 1.023 (1.005-1.030) 09/05/24 17:24 Urine Protein Negative (Negative) 09/05/24 17:24 Urine Glucose (UA) Negative (Normal) 09/05/24 17:24 Urine Ketones Negative (Negative) 09/05/24 17:24 Urine Blood Trace (Negative) A 09/05/24 17:24 Urine Nitrate Negative (Negative) 09/05/24 17:24 Urine Bilirubin Negative (Negative) 09/05/24 17:24 Urine Urobilinogen 0.2 mg/dL (Negative) 09/05/24 17:24 Ur Leukocyte Esterase Negative (Negative) 09/05/24 17:24 Urine RBC 3-5 /hpf (0-2) 09/05/24 17:24 Urine WBC 0-5 /hpf (0-5) 09/05/24 17:24 Ur Squamous Epith Cells 0-5 /hpf (0-5) 09/05/24 17:24 Amorphous Sediment Not Reportable 09/05/24 17:24 Urine Bacteria None seen /hpf (NONE) 09/05/24 17:24 Hyaline Casts 0-4 /lpf H 09/05/24 17:24 Phenytoin 4.1 ug/mL (10-20) L 09/05/24 11:58 All radiology interpretation(s) finalized by discharge Discharge Plan Discharge Patient Disposition: Xfer Short-Term Hosp Clinical Impression: Glioblastoma multiforme Condition: Stable Referrals: Alma Mckay MD [Primary Care Provider] - Print Language: Ugandan Coding Level of Care Code ED Tool Machinist for Chg Fwd Related Data Home Medications ?Medication ?Instructions ?Recorded ?Confirmed levothyroxine 50 mcg capsule 50 mcg PO DAILY 10/13/22 09/05/24 levetiracetam 1,000 mg tablet 1,000 mg PO BID 10/09/23 09/05/24 metoprolol succinate 25 mg 25 mg PO BID 10/09/23 09/05/24 tablet,extended release 24 hr hydrocodone 5 mg-acetaminophen 325 1 tab PO QID PRN Pain 07/27/24 09/05/24 mg tablet acetaminophen 325 mg capsule 325 mg PO QID PRN Pain 08/20/24 09/05/24 apixaban 5 mg tablet 5 mg PO BID 08/20/24 09/05/24 cannabidiol 100 mg/mL oral solution 12.5 mg PO DAILY 08/20/24 09/05/24 escitalopram oxalate 10 mg tablet 10 mg PO DAILY 08/20/24 09/05/24 fluticasone furoate 100 1 inh inhalation DAILY 08/20/24 09/05/24 mcg-vilanterol 25 mcg/dose inhalation powder guaifenesin 600 mg tablet, 600 mg PO Q12H PRN Cough 08/20/24 09/05/24 extended release 12 hr trazodone 50 mg tablet 25 mg PO DAILY 08/20/24 09/05/24 ondansetron 4 mg disintegrating See Rx Instructions .Route .COMPLEX 09/05/24 09/05/24 tablet Previous Rx's ?Medication ?Instructions ?Recorded lorazepam 1 mg tablet 0.5 mg (1/2 x 1 mg) PO Q6H PRN 02/29/24 Severe Nausea #30 tabs clobazam 10 mg tablet 10 mg PO BID #60 tabs 07/16/24 phenytoin 50 mg chewable tablet See Rx Instructions PO .COMPLEX 90 07/29/24 (Dilantin Infatabs) days #270 tabs Allergies Allergy/AdvReac Type Severity Reaction Status Date / Time adhesive tape Allergy Mild Unknown Verified 08/20/24 13:40
--- NOTE | 2024-09-05 11:17 | CT_ITS ---
WS: [id number] CT HEAD TECHNIQUE: Noncontrast CT of the head obtained from the skullbase to the vertex. CLINICAL INFORMATION: Worsening left-sided deficits and right-sided vision disturb COMPARISON: CT 07/27/2024 DLP: 1064.[address] scans at [place] use at least one of these dose optimization techniques: automated exposure control; mA and/or kV adjustment per patient size (includes targeted exams where dose is matched to clinical indication); or iterative reconstruction. FINDINGS: Prior postoperative changes resection cavity in the RIGHT parietal occipital junction as seen on the prior MRI. No evidence of intracranial hemorrhage. Diffuse low-attenuation change in the RIGHT frontal parietal temporal and occipital white matter. This is similar in appearance compared to 07/27/2024 with involvement of the splenium of the corpus callosum. RIGHT to LEFT midline shift measuring 9 mm appears slightly progressed. Slightly increased mass effect on the RIGHT frontal horn. Persistent mass effect on the RIGHT lateral ventricle with effacement. Effacement of the third ventricle. Mild dilatation of the LEFT lateral ventricle. No transependymal edema. Patient at risk for LEFT ventricular entrapment although relatively stable compared to previous. Mild supratentorial mass effect with slight effacement of the suprasellar cistern which remains patent. Fourth ventricle is patent. Paranasal sinuses are well aerated. Mucosal thickening LEFT posterior ethmoid air cells. Mastoid air cells are well aerated. Normal posterior nasopharynx. CT/CT head wo con* [id number] IMPRESSION: 1. Stable postoperative changes resection cavity RIGHT parietal occipital junc tion. 2. No hemorrhage. 3. Diffuse low-attenuation change in the RIGHT hemisphere slightly progressed compared to 07/27/2024. 4. Persistent mass effect on the RIGHT lateral ventricle with RIGHT to LEFT mi dline shift measuring 9 mm is slightly progressed compared to previous 5. Effacement of the third ventricle. Patient at risk for trapping of the LEFT lateral ventricle although stable compared to previous. 6. Slight effacement of the suprasellar cistern due to supratentorial mass eff ect. This is slightly progressed compared to previous. 7. Basal cisterns otherwise patent. Notified Amadeo Knox DO at 09/05/2024 12:02 PM.
--- NOTE | 2024-09-05 11:18 | ECG_ITS ---
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
[2024-09-05 12:02] LABS: Basophils % 0.2 %; Eosinophils % 0.7 %; Hematocrit 37.9 % (36-47); Lymphocytes % 22.4 %; Mean Corpuscular HGB Conc 34.6 g/dL (30-55); Mean Corpuscular Hemoglobin 34.8 pg (27-33); Mean Corpuscular Volume 100.8 fl (85-98); Mean Platelet Volume 8.9 fL (7.4-10.4); Monocytes # 0.8 10^3/uL (0.2-0.9); Monocytes % 17.9 %; Neutrophils # 2.56 10^3/uL (1.8-7.7); Neutrophils % 57.5 %; Nucleated Red Blood Cells % 0 %; Platelet Count 105 10^3/cmm (157-399); Red Blood Count 3.76 10^6/uL (3.85-5.65); Red Cell Distribution Width 13.7 % (12.1-15.1); White Blood Count 4.46 10^3/uL (3.29-11.43)
[2024-09-05 12:22] LABS: INR 1.03 (0.8-1.2)
[2024-09-05 12:29] LABS: Troponin(5th) Baseline 10 ng/L (0-10)
[2024-09-05 12:31] LABS: Phenytoin Dilantin 4.1 ug/mL (10-20)
[2024-09-05 12:45] LABS: Alanine Aminotransferase 19 U/L (0-33); Albumin Level 4.1 g/dL (3.5-5.2); Alkaline Phosphatase 167 U/L (35-105); Anion Gap 16.2 (5-19); Aspartate Amino Transferase 20 U/L (0-32); Blood Urea Nitrogen 11 mg/dL (8-23); C Reactive Protein 3.5 mg/L (0.0-4.9); Calcium 9.2 mg/dL (8.5-10.5); Carbon Dioxide 27 mmol/L (22-29); Chloride 98 mmol/L (98-107); Creatinine Clr Calc Pharmacy 62.8074; Globulin 2.9 g/dL (1.3-4.6); Glucose 120 mg/dL (65-115); Osmolality Calculated 287 mOsm/kg (285-295); Potassium 3.2 mmol/L (3.5-5.1); Sodium 138 mmol/L (136-145); Thyroid Stimulating Hormone 2.85 uIU/mL (0.27-4.20); Total Bilirubin 0.5 mg/dL (0.15-1.2)
[2024-09-05] MEDS: dexamethasone 10 mg/mL INJ IVP (13:10)
[2024-09-05] MEDS: HYDROMORPHONE HCL 0.5 MG/0.5 ML INJ IVP ×2 (13:11→21:58)
--- NOTE | 2024-09-05 13:18 | ECG_ITS ---
[facility] Test Date: 2024-09-05 Pat Name: Sharyn Garza Department: Room: Gender: Female On Air Personality: : 1950 Requested By: Amadeo Knox Order Number: [id number] Reading MD: GRISELDA LUO Measurements Intervals [place] Rate: 62 P: 63 AZ: 178 QRS: 50 QRSD: 90 T: 59 QT: 389 QTc: 397 Interpretive Statements SINUS RHYTHM NONSPECIFIC ST & T-WAVE ABNORMALITY Compared to ECG 09/05/2024 11:21:39 T-wave abnormality now present Electronically Signed On 09-07-2024 19:35:33 SENIOR ELECTRONICS ENGINEER by GRISELDA LUO [email or web address] [id number]
--- NOTE | 2024-09-05 13:46 | MR_ITS ---
WS: [id number] MRI BRAIN WITH AND WITHOUT CONTRAST HISTORY: Known glioblastoma multiforme worsening symptoms and midline COMPARISON: CT head 09/05/2024, prior MRI 07/03/2024 TECHNIQUE: Multiplanar imaging performed through the brain with MultiHance 18 ml's IV. Patient is status post RIGHT parietal occipital resection. Since the prior MRI of 07/03/2024 there has been a significant progression of edema with new midline shift and uncal herniation. Extensive amount of RIGHT cerebral edema predominantly within the temporal, parietal and posterior frontal lobe. RIGHT to LEFT midline shift by 10 mm with effacement of the RIGHT lateral ventricle and possible entrapment. Temporal horns are symmetric in size. Complete effacement of the occipital horn of the RIGHT lateral ventricle. Third ventricle is effaced and displaced to the LEFT. Mild effacement of the suprasellar cistern and midbrain. Small amount of hemosiderin is reidentified at the surgical bed. Peripheral enhancing tumor in the posterior RIGHT temporal lobe extends into the occipital lobe as increased in size since 09/03/2023. Tumor measures 4.3 x 3.2 x 2.3 cm. Enhancement extends into the posterior RIGHT corpus callosum. No acute infarct. Paranasal sinuses: No significant sinus disease. Mastoid air cells: Normal. Calvarium and scalp: Normal. MR/MR head wo/w con [id number] IMPRESSION: 1. Significant progression of cerebral edema centered in the RIGHT frontal, te mporal and occipital lobes. 2. New RIGHT to LEFT midline shift by 10 mm with partial entrapment of the thi rd ventricle and near complete effacement of the RIGHT lateral ventricle. 3. Peripherally enhancing tumor centered in the RIGHT temporal lobe measures 4 .3 x 3.2 x 2.3 cm with extension into the corpus callosum has progressed since 07/03/2024. 4. RIGHT uncal herniation and effacement of the suprasellar cistern and mass e ffect upon the midbrain.
[2024-09-05] MEDS: gadobenate dimeglumine 20 mL vial IV (14:37)
[2024-09-05 16:15] LABS: Troponin 5 2HR 8.68 ng/L (0-10)
[2024-09-05 16:19] LABS: Troponin 5 2HR Delta -1.32 ABS# (0-10)
--- NOTE | 2024-09-05 17:18 | ECG_ITS ---
[facility] Test Date: 2024-09-05 Pat Name: Sharyn Garza Department: Room: Gender: Female Burrito Maker: : 1950 Requested By: Amadeo Knox Order Number: [id number] Reading MD: GRISELDA LUO Measurements Intervals [place] Rate: 63 P: 76 DC: 179 QRS: 45 QRSD: 92 T: 32 QT: 220 QTc: 227 Interpretive Statements Atrial flutter POSSIBLE RIGHT VENTRICULAR CONDUCTION DELAY [RSR (QR) IN V1/V2] NONSPECIFIC T-WAVE ABNORMALITY Compared to ECG 09/05/2024 12:51:08 No significant changes Electronically Signed On 09-07-2024 19:35:11 BOND WRITER by GRISELDA LUO [email or web address]
[2024-09-05 17:38] LABS: Bilirubin Urine Negative (Negative); Blood Urine Trace (Negative); Glucose Urine UA Negative (Normal); Ketones Urine Negative (Negative); Leukocyte Esterase Urine Negative (Negative); Nitrate Urine Negative (Negative); Protein Urine Negative (Negative); Specific Gravity, Urine 1.023 (1.005-1.030); Urine Appearance Cloudy (CLEAR); Urine Color Yellow (Yellow); Urobilinogen Urine 0.2 mg/dL (Negative)
[2024-09-05 17:41] LABS: Add Urine Microscopic? YES; Bacteria Urine None Seen /hpf; Hyaline Casts Urine 0-4 /lpf; Squamous Epithelial Cell Urine 0-5 /hpf (0-5); WBC Urine 0-5 /hpf (0-5)
[2024-09-05 19:30] LABS: Troponin 5 6HR 6.45 ng/L (0-10)
[2024-09-05 19:31] LABS: Troponin 5 6HR Delta -3.55 ng/L (0-12)
--- NOTE | 2024-09-05 22:12 | PC.NURSE ---
REPORT CALLED TO [facility], NO FURTHER QUESTIONS. REPORT GIVEN TO FLIGHT NURSE SHAMA, NO FURTHER QUESTIONS FROM NURSE.
== END 2024-09-05 22:16 | disposition short-term general hospital (02) ==
PROVIDERS: Emergency Provider Emergency Medicine; PCP Internal Medicine
DX: C71.5 Malignant neoplasm of cerebral ventricle (principal); I10 Essential (primary) hypertension
CPT/HCPCS: 36415; 70450; 70553; 80053; 80185; 81001; 84443; 84484; 85025; 85610; 86140; 93005; 96374; 96375; 96376; 99285; A9577; J1100; J1171

== ENCOUNTER 2024-10-10 15:20 | Emergency (ER) | payer MEDICARE, OTHER, SELFPAY ==
[2024-10-10] VITALS (7 sets, daily range): BP systolic 104–129; BP diastolic 59–83; PULSE 80–92; RESP 16–18; TEMP 36.6; O2SAT 89–96; BMI 34.3
--- NOTE | 2024-10-10 16:13 | XRR_ITS ---
PROCEDURE INFORMATION: Exam: XR Chest Exam date and time: 10/10/2024 4:30 PM Age: 73 years old Clinical indication: Dyspnea; Additional info: SOB and weakness TECHNIQUE: Imaging protocol: Radiologic exam of the chest. Views: 1 view. COMPARISON: CR XR chest 1V portable [id number] 07/27/2024 12:11 PM FINDINGS: Lungs: Unremarkable. No consolidation. Pleural spaces: Unremarkable. No pleural effusion. No pneumothorax. Heart/Mediastinum: Unremarkable. No cardiomegaly. Bones/joints: Unremarkable. XR/XR chest 1V portable [id number] IMPRESSION: No acute cardiopulmonary findings.
--- NOTE | 2024-10-10 16:13 | CTR_ITS ---
PROCEDURE INFORMATION: Exam: CT Head Without Contrast Exam date and time: 10/10/2024 5:30 PM Age: 73 years old Clinical indication: Pain; Headache not specified; Prior surgery; Surgery date: <1 month; Surgery type: Brain tumor; Additional info: Headache post op glioblast TECHNIQUE: Imaging protocol: Computed tomography of the head without contrast. Radiation optimization: All CT scans at this facility use at least one of these dose optimization techniques: automated exposure control; mA and/or kV adjustment per patient size (includes targeted exams where dose is matched to clinical indication); or iterative reconstruction. COMPARISON: MR head wo/w con [id number] 09/05/2024 2:09 PM RADIATION DOSE METRICS: Total DLP (mGy-cm): 1045.4 FINDINGS: Brain: Stable posterior right cerebral vasogenic edema. Resection changes of the posterior right parietal lobe with a punctate focus of intraparenchymal air. Scattered dural calcifications. Intracranial calcified atherosclerotic disease. A small subdural collection is notable adjacent the craniotomy inner table without significant mass-effect. Cerebral ventricles: Mild effacement of the posterior right lateral ventricle, unchanged from MRI performed on 09/05/2024. Paranasal sinuses: Visualized sinuses are unremarkable. No fluid levels. Mastoid air cells: Visualized mastoid air cells are well aerated. Bones: Hyperostosis of the frontal bone. Right posterior parietal craniotomy changes. Soft tissues: Unremarkable. CT/CT head wo con* [id number] IMPRESSION: Postoperative change as highlighted above without acute finding.
[2024-10-10 16:34] LABS: Basophils % 0.4 %; Eosinophils % 0.6 %; Hematocrit 32.6 % (36-47); Lymphocytes # 1.7 10^3/uL (0.8-4.8); Lymphocytes % 31.4 %; Mean Corpuscular HGB Conc 32.8 g/dL (30-55); Mean Corpuscular Hemoglobin 33.8 pg (27-33); Mean Corpuscular Volume 102.8 fl (85-98); Mean Platelet Volume 8.7 fL (7.4-10.4); Monocytes % 18.3 %; Neutrophils # 2.45 10^3/uL (1.8-7.7); Neutrophils % 46.3 %; Nucleated Red Blood Cells % 0 %; Platelet Count 104 10^3/cmm (157-399); Red Blood Count 3.17 10^6/uL (3.85-5.65); Red Cell Distribution Width 13.3 % (12.1-15.1); White Blood Count 5.29 10^3/uL (3.29-11.43)
--- NOTE | 2024-10-10 16:35 | W.ED.HA ---
HPI - Headache General: Chief Complaint: Eye Problems Stated Complaint: pressure behind her eyes/painful Time Seen by Provider: 10/10/24 16:06 History of Present Illness: 73-year-old female presents with headache behind her eyes. Patient has a history of glioblastoma and about 3 weeks ago had a surgery down in [place]. She was discharged about a week ago. She has been having a headache since she was discharged. Patient does have a history of headaches including migraines which this is similar to. Patient's oxygen was mildly low when she presented, she is not complaining of shortness of breath but she has a known PE and is being treated with Eliquis. She is not complaining of any chest pain. 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 Associated symptoms: Reports nausea; Deny fever(s), rash or vomiting Related Data Home Medications ?Medication ?Instructions ?Recorded ?Confirmed levothyroxine 50 mcg capsule 50 mcg PO DAILY 10/13/22 09/05/24 levetiracetam 1,000 mg tablet 1,000 mg PO BID 10/09/23 09/05/24 metoprolol succinate 25 mg 25 mg PO BID 10/09/23 09/05/24 tablet,extended release 24 hr hydrocodone 5 mg-acetaminophen 325 1 tab PO QID PRN Pain 07/27/24 09/05/24 mg tablet acetaminophen 325 mg capsule 325 mg PO QID PRN Pain 08/20/24 09/05/24 apixaban 5 mg tablet 5 mg PO BID 08/20/24 09/05/24 cannabidiol 100 mg/mL oral solution 12.5 mg PO DAILY 08/20/24 09/05/24 escitalopram oxalate 10 mg tablet 10 mg PO DAILY 08/20/24 09/05/24 fluticasone furoate 100 1 inh inhalation DAILY 08/20/24 09/05/24 mcg-vilanterol 25 mcg/dose inhalation powder guaifenesin 600 mg tablet, 600 mg PO Q12H PRN Cough 08/20/24 09/05/24 extended release 12 hr trazodone 50 mg tablet 25 mg PO DAILY 08/20/24 09/05/24 ondansetron 4 mg disintegrating See Rx Instructions .Route .COMPLEX 09/05/24 09/05/24 tablet Previous Rx's ?Medication ?Instructions ?Recorded lorazepam 1 mg tablet 0.5 mg (1/2 x 1 mg) PO Q6H PRN 02/29/24 Severe Nausea #30 tabs clobazam 10 mg tablet 10 mg PO BID #60 tabs 07/16/24 phenytoin 50 mg chewable tablet See Rx Instructions PO .COMPLEX 90 07/29/24 (Dilantin Infatabs) days #270 tabs Allergies Allergy/AdvReac Type Severity Reaction Status Date / Time adhesive tape Allergy Mild Unknown Verified 10/10/24 15:31 Review of Systems Const: Reports: fatigue; Denies: fever(s) or chills Eyes: Reports: other (please see hpi) GI: Reports: nausea; Denies: vomiting Skin/Breast: Denies: rash Neuro: Reports: headache(s) [facility] ED PFSH: Medical History Hypertension Hypothyroidism Surgical History History of craniotomy (08/25/23) History of craniotomy (01/31/24) History of left nephrectomy for kidney donation Family History Father Cerebral aneurysm Mother Diabetes Congestive heart failure (CHF) Renal failure Brother Diabetes Heart disease Social History Smoking and tobacco/nicotine status: never used tobacco/nicotine Alcohol intake: never Physical Exam Const: COMMON NORMALS: patient oriented x3 and alert Resp: COMMON NORMALS: normal respiratory effort and No retractions Cardio: COMMON NORMALS: regular rate and regular rhythm RATE: regular rate RHYTHM: regular rhythm Neuro: COMMON NORMALS: patient oriented x3 SENSORIUM/ORIENTATION: Yes alert Psych: COMMON NORMALS: mental status grossly normal, Normal thought process present and cooperative THOUGHT PROCESS: Normal thought process present Course Vital Signs: Vital signs: Vital Signs Temperature 97.8 F 10/10/24 15:23 Pulse Rate 80 10/10/24 18:38 Respiratory Rate 16 10/10/24 18:38 Blood Pressure 108/59 10/10/24 18:38 Pulse Oximetry 96 10/10/24 18:02 Oxygen Delivery Me thod Room Air 10/10/24 15:23 MDM - Headache Medical Decision Making Patient's labs were ordered reviewed and show no acute findings. Patient CT was ordered and shows postop changes but no acute findings. Patient's headache was improving while here then she was also provided with Toradol, Reglan and Benadryl for migraine cocktail she has taken this in the past. Patient is doing significant better. Patient will be discharged home with supportive care recommendations along with recommendation of follow-up with her primary care provider and her neurologist if she continues to have migraines postop. Lab Data 10/10/24 16:18 10/10/24 16:18 Radiology Impressions Chest X-Ray 10/10/24 16:13 IMPRESSION: No acute cardiopulmonary findings. Head CT 10/10/24 16:13 IMPRESSION: Postoperative change as highlighted above without acute finding. Laboratory Results WBC 5.29 10^3/uL (3.29-11.43) 10/10/24 16:18 RBC 3.17 10^6/uL (3.85-5.65) L 10/10/24 16:18 Hgb 10.70 g/dL (11.27-16.99) L 10/10/24 16:18 Hct 32.6 % (36-47) L 10/10/24 16:18 MCV 102.8 fl (85-98) H 10/10/24 16:18 MCH 33.8 pg (27-33) H 10/10/24 16:18 MCHC 32.8 g/dL (30-55) 10/10/24 16:18 RDW 13.3 % (12.1-15.1) 10/10/24 16:18 Plt Count 104 10^3/cmm (157-399) L 10/10/24 16:18 MPV 8.7 fL (7.4-10.4) 10/10/24 16:18 Neut % (Auto) 46.3 % 10/10/24 16:18 Lymph % (Auto) 31.4 % 10/10/24 16:18 [place] % (Auto) 18.3 % 10/10/24 16:18 Eos % (Auto) 0.6 % 10/10/24 16:18 Baso % (Auto) 0.4 % 10/10/24 16:18 Neut # (Auto) 2.45 10^3/uL (1.8-7.7) 10/10/24 16:18 Lymph # (Auto) 1.7 10^3/uL (0.8-4.8) 10/10/24 16:18 Glades # (Auto) 1.0 10^3/uL (0.2-0.9) H 10/10/24 16:18 Eos # (Auto) 0.0 10^3/uL (0.0-0.8) 10/10/24 16:18 Baso # (Auto) 0.0 10^3/uL (0.0-0.1) 10/10/24 16:18 Nucleated RBC % (auto) 0 % 10/10/24 16:18 Nucleated RBCs # 0.0 /100WBC 10/10/24 16:18 Sodium 138 mmol/L (136-145) 10/10/24 16:18 Potassium 3.8 mmol/L (3.5-5.1) 10/10/24 16:18 Chloride 100 mmol/L (98-107) 10/10/24 16:18 Carbon Dioxide 27 mmol/L (22-29) 10/10/24 16:18 Anion Gap 14.8 (5-19) 10/10/24 16:18 BUN 10 mg/dL (8-23) 10/10/24 16:18 Creatinine 0.6 mg/dL (0.5-0.9) 10/10/24 16:18 GFR Calculation Not Reportable 10/10/24 16:18 Glucose 130 mg/dL (65-115) H 10/10/24 16:18 Calculated Osmolality 287 mOsm/kg (285-295) 10/10/24 16:18 Calcium 8.7 mg/dL (8.5-10.5) 10/10/24 16:18 Magnesium 1.9 mg/dL (1.7-2.3) 10/10/24 16:18 Total Bilirubin 0.4 mg/dL (0.15-1.2) 10/10/24 16:18 AST 14 U/L (0-32) 10/10/24 16:18 ALT 15 U/L (0-33) 10/10/24 16:18 Alkaline Phosphatase 114 U/L (35-105) H 10/10/24 16:18 Total Protein 6.1 g/dL (6.6-8.7) L 10/10/24 16:18 Albumin 3.4 g/dL (3.5-5.2) L 10/10/24 16:18 Globulin 2.7 g/dL (1.3-4.6) 10/10/24 16:18 All radiology interpretation(s) finalized by discharge Discharge Plan Discharge Patient Disposition: Home Clinical Impression: Head ache Homonymous hemianopia Qualifiers: Laterality: unspecified laterality Qualified Code(s): H53.469 - Homonymous bilateral field defects, unspecified side Condition: Stable Prescriptions: No Action metoprolol succinate 25 mg tablet extended release 24 hr 25 mg PO BID levetiracetam 1,000 mg tablet 1,000 mg PO BID levothyroxine 50 mcg capsule 50 mcg PO DAILY lorazepam 1 mg tablet 0.5 mg PO Q6H PRN (Reason: Severe Nausea) Qty: 30 1RF trazodone 50 mg tablet 25 mg PO DAILY escitalopram oxalate 10 mg tablet 10 mg PO DAILY acetaminophen 325 mg capsule 325 mg PO QID PRN (Reason: Pain) apixaban 5 mg tablet 5 mg PO BID fluticasone furoate-vilanterol 100-25 mcg/dose blister with device 1 inh inhalation DAILY guaifenesin 600 mg tablet extended release 12hr 600 mg PO Q12H PRN (Reason: Cough) cannabidiol 100 mg/mL solution 12.5 mg PO DAILY Patient Comments: at bedtime clobazam 10 mg tablet 10 mg PO BID Qty: 60 5RF Rx Instructions: 1/2 a tab twice a day phenytoin [Dilantin Infatabs] 50 mg tablet,chewable See Rx Instructions PO .COMPLEX 90 Days Qty: 270 5RF Rx Instructions: 1 p.o. every morning, 1 p.o. q. afternoon, and 1-1/2 tablets p.o. at bedtime ondansetron 4 mg tablet,disintegrating See Rx Instructions .ROUTE .COMPLEX Rx Instructions: 4 mg orally ;DISSOLVE 1 TABLET BY MOUTH ON TOP OF TONGUE &SWALLOW EVERY 6 HOURS NEEDED FOR NAUSEA AND VOMITING hydrocodone-acetaminophen 5-325 mg tablet 1 tab PO QID PRN (Reason: Pain) Discharge Orders: Discharge ED (Routine); Ordered 10/10/24 Ordered By: Derik Lozada Referrals: Alma Mckay MD [Primary Care Provider] - Discharge Diet: Usual diet Discharge Activity: Increase activity as tolerated Patient Instructions: Headache - Migraine (Adult), Acute Headache (ED), Opioid Safety, Pain Management Activity Restrictions/Additional Instructions: Please be sure she is drinking plenty of fluids. Recommend you follow-up closely with your neurologist and primary care provider to discuss other medication options for your headaches. Recommend you try topical Voltaren/diclofenac and topical 4% lidocaine on her posterior neck to help in a cervical tension headache. Print Language: Greek Coding Level of Care Code ED [employer] Apprentice for Agustín Ortiz
[2024-10-10 17:02] LABS: Alanine Aminotransferase 15 U/L (0-33); Albumin Level 3.4 g/dL (3.5-5.2); Alkaline Phosphatase 114 U/L (35-105); Anion Gap 14.8 (5-19); Aspartate Amino Transferase 14 U/L (0-32); Blood Urea Nitrogen 10 mg/dL (8-23); Calcium 8.7 mg/dL (8.5-10.5); Carbon Dioxide 27 mmol/L (22-29); Chloride 100 mmol/L (98-107); Creatinine Clr Calc Pharmacy 66.2877; Globulin 2.7 g/dL (1.3-4.6); Glucose 130 mg/dL (65-115); Magnesium 1.9 mg/dL (1.7-2.3); Osmolality Calculated 287 mOsm/kg (285-295); Potassium 3.8 mmol/L (3.5-5.1); Sodium 138 mmol/L (136-145); Total Bilirubin 0.4 mg/dL (0.15-1.2); Total Protein 6.1 g/dL (6.6-8.7)
[2024-10-10] MEDS: diphenhydrAMINE 50 mg/mL SDV 1mL IVP (18:36)
[2024-10-10] MEDS: ketorolac 30 mg/mL INJ 15 MG IVP (18:37)
[2024-10-10] MEDS: metoclopramide 5 mg/mL SDV 2 mL 10 MG IVP (18:37)
== END 2024-10-10 19:27 | disposition home or self-care (01) ==
PROVIDERS: Emergency Provider Student in an Organized Health Care Education/Training Program; PCP Internal Medicine
DX: R51.9 Headache, unspecified (principal); H53.469 Homonymous bilateral field defects, unspecified side; I10 Essential (primary) hypertension
CPT/HCPCS: 36415; 70450; 71045; 80053; 83735; 85025; 96374; 96375; 99285; J1200; J1885; J2765

== ENCOUNTER 2024-10-21 08:00 | Oncology outpatient (recurring) (ONCR) | payer MEDICARE, OTHER, SELFPAY ==
[2024-10-14 09:04] LABS: Basophils % 0.6 %; Eosinophils # 0.1 10^3/uL (0.0-0.8); Eosinophils % 0.8 %; Hematocrit 34.5 % (36-47); Lymphocytes # 1.7 10^3/uL (0.8-4.8); Lymphocytes % 27.2 %; Mean Corpuscular HGB Conc 33.6 g/dL (30-55); Mean Corpuscular Hemoglobin 33.9 pg (27-33); Mean Corpuscular Volume 100.9 fl (85-98); Mean Platelet Volume 9.1 fL (7.4-10.4); Monocytes # 1.1 10^3/uL (0.2-0.9); Monocytes % 16.6 %; Neutrophils # 3.31 10^3/uL (1.8-7.7); Neutrophils % 51.8 %; Nucleated Red Blood Cells % 0.5 %; Platelet Count 130 10^3/cmm (157-399); Red Blood Count 3.42 10^6/uL (3.85-5.65); Red Cell Distribution Width 13.4 % (12.1-15.1); White Blood Count 6.39 10^3/uL (3.29-11.43)
[2024-10-14 09:16] LABS: Alanine Aminotransferase 13 U/L (0-33); Albumin Level 3.7 g/dL (3.5-5.2); Alkaline Phosphatase 134 U/L (35-105); Anion Gap 15.8 (5-19); Aspartate Amino Transferase 15 U/L (0-32); Blood Urea Nitrogen 7 mg/dL (8-23); Calcium 8.7 mg/dL (8.5-10.5); Carbon Dioxide 27 mmol/L (22-29); Chloride 101 mmol/L (98-107); Creatinine Clr Calc Pharmacy 65.4179; Globulin 3.3 g/dL (1.3-4.6); Glucose 143 mg/dL (65-115); Osmolality Calculated 290 mOsm/kg (285-295); Phenytoin Dilantin 4.2 ug/mL (10-20); Potassium 3.8 mmol/L (3.5-5.1); Sodium 140 mmol/L (136-145); Total Bilirubin 0.4 mg/dL (0.15-1.2)
[2024-10-15 10:55] LABS: Levetiracetam Immunoassy 18.8 mcg/mL (6.0-46.0)
[2024-10-21 08:52] LABS: Basophils % 0.7 %; Eosinophils % 0.5 %; Hematocrit 37.6 % (36-47); Lymphocytes % 33.7 %; Mean Corpuscular HGB Conc 32.7 g/dL (30-55); Mean Corpuscular Volume 100.8 fl (85-98); Monocytes % 17.3 %; Neutrophils # 2.71 10^3/uL (1.8-7.7); Neutrophils % 45.9 %; Nucleated Red Blood Cells % 0 %; Platelet Count 160 10^3/cmm (157-399); Red Blood Count 3.73 10^6/uL (3.85-5.65); Red Cell Distribution Width 13.4 % (12.1-15.1)
[2024-10-21 09:16] LABS: Alanine Aminotransferase 18 U/L (0-33); Albumin Level 3.7 g/dL (3.5-5.2); Alkaline Phosphatase 135 U/L (35-105); Anion Gap 18.7 (5-19); Aspartate Amino Transferase 19 U/L (0-32); Blood Urea Nitrogen 11 mg/dL (8-23); Calcium 8.9 mg/dL (8.5-10.5); Carbon Dioxide 21 mmol/L (22-29); Chloride 98 mmol/L (98-107); Creatinine Clr Calc Pharmacy 65.4179; Globulin 3.3 g/dL (1.3-4.6); Glucose 180 mg/dL (65-115); Osmolality Calculated 282 mOsm/kg (285-295); Potassium 3.7 mmol/L (3.5-5.1); Sodium 134 mmol/L (136-145); Total Bilirubin 0.3 mg/dL (0.15-1.2)
[2024-10-21] MEDS: sodium chloride 0.9% 250 ML 75 ML IV (11:32)
[2024-10-21 13:56] VITALS: BP 120/84; PULSE 79; RESP 16; TEMP 36.8; O2SAT 94
== END 2024-10-21 23:59 | disposition home or self-care (01) ==
PROVIDERS: Psychiatry & Neurology Neurology; PCP Internal Medicine; Visit Provider Internal Medicine Medical Oncology
DX: Z53.9 Procedure and treatment not carried out, unspecified reason; Z51.12 Encounter for antineoplastic immunotherapy; C71.3 Malignant neoplasm of parietal lobe; D69.6 Thrombocytopenia, unspecified; I82.409 Acute embolism and thrombosis of unspecified deep veins of unspecified lower extremity; I26.99 Other pulmonary embolism without acute cor pulmonale; R82.90 Unspecified abnormal findings in urine; N64.4 Mastodynia; Z79.52 Long term (current) use of systemic steroids; Z79.899 Other long term (current) drug therapy; Z79.891 Long term (current) use of opiate analgesic
CPT/HCPCS: 36415; 80053; 80177; 80185; 85025; 96413; 96415; 99214; 99215; J7050; Q5118

== ENCOUNTER 2024-10-26 00:54 | Emergency (ER) | payer MEDICARE, OTHER, SELFPAY ==
[2024-10-26 00:58] VITALS: BP 156/93; PULSE 72; RESP 18; TEMP 36.3; O2SAT 94
--- NOTE | 2024-10-26 01:37 | W.ED.DIZZY ---
HPI - Dizziness General: Chief Complaint: Dizziness Stated Complaint: DIZZY Time Seen by Provider: 10/26/24 00:55 History of Present Illness: HPI Narrative: P presents to the ER with complaints of dizziness and weakness over the last week. Family states she has had having diarrhea consistently for the last week and it is got her fatigued and tired to the point she cannot get up out of bed. Patient has glioblastoma multiforme and is using Decadron p.o. as needed. Patient does not use it over last week because pharmacy could not get it until Monday. This happens every time patient goes without the Decadron. Related Data Home Medications ?Medication ?Instructions ?Recorded ?Confirmed levothyroxine 50 mcg capsule 50 mcg PO DAILY 10/13/22 10/21/24 levetiracetam 1,000 mg tablet 1,000 mg PO BID 10/09/23 10/21/24 metoprolol succinate 25 mg 25 mg PO BID 10/09/23 10/21/24 tablet,extended release 24 hr acetaminophen 325 mg capsule 325 mg PO QID PRN Pain 08/20/24 10/21/24 apixaban 5 mg tablet 5 mg PO BID 08/20/24 10/21/24 cannabidiol 100 mg/mL oral solution 12.5 mg PO DAILY 08/20/24 10/21/24 ondansetron 4 mg disintegrating See Rx Instructions .Route .COMPLEX 09/05/24 10/21/24 tablet Previous Rx's ?Medication ?Instructions ?Recorded lorazepam 1 mg tablet 0.5 mg (1/2 x 1 mg) PO Q6H PRN 02/29/24 Severe Nausea #30 tabs clobazam 10 mg tablet 10 mg PO BID #60 tabs 07/16/24 dexamethasone 4 mg tablet 4 mg PO QID PRN weakness #120 tabs 10/24/24 hydrocodone 10 mg-acetaminophen 1 tab PO Q6H PRN pain 5 days #20 10/24/24 325 mg tablet tabs Allergies Allergy/AdvReac Type Severity Reaction Status Date / Time adhesive tape Allergy Mild Unknown Verified 10/26/24 01:09 Review of Systems General: Reports: 10 or more systems reviewed and unremarkable except in HPI and below PFSH ED PFSH: Medical History Hypertension Hypothyroidism Surgical History History of craniotomy (08/25/23) History of craniotomy (01/31/24) History of left nephrectomy for kidney donation Family History Father Cerebral aneurysm Mother Diabetes Congestive heart failure (CHF) Renal failure Brother Diabetes Heart disease Social History Smoking and tobacco/nicotine status: never used tobacco/nicotine Alcohol intake: never Physical Exam Const: COMMON NORMALS: no acute distress, average body habitus, patient oriented x3, no limitations, healthy appearing, alert and well nourished HENMT: COMMON NORMALS: normocephalic, atraumatic, hearing grossly normal bilaterally, external ears normal, Normal external nose present, moist oral mucous membranes and oropharynx normal HEAD & SCALP: normocephalic and atraumatic NOSE: Normal external nose present EXTERNAL EAR: Yes external ears normal Neck/C-Spine: COMMON NORMALS: no JVD Chest: COMMONS NORMALS: normal inspection of the chest and normal palpation of entire chest wall Resp: COMMON NORMALS: normal respiratory effort, No retractions, No use of accessory muscles and clear to auscultation bilaterally AUSCULTATION: clear to auscultation bilaterally Cardio: COMMON NORMALS: no JVD, regular rate, regular rhythm, S1 normal heart sound present, S2 normal heart sound present, No gallops present (Cardio), No clicks present (Cardio), No murmurs present (Cardio) and No rub (Cardio) RATE: regular rate RHYTHM: regular rhythm HEART SOUNDS: S1 normal heart sound present and S2 normal heart sound present GI: COMMON NORMALS: Normal to inspection, nondistended, normoactive bowel sounds present, Soft to palpation, non-tender, No hepatosplenomegaly present and no masses PALPATION: Yes Soft to palpation and Yes No hepatosplenomegaly present Neuro: COMMON NORMALS: patient oriented x3 SENSORIUM/ORIENTATION: Yes alert Course Vital Signs: Vital signs: Vital Signs Temperature 97.4 F L 10/26/24 00:58 Pulse Rate 78 10/26/24 06:09 Respiratory Rate 18 10/26/24 00:58 Blood Pressure 146/92 10/26/24 06:09 Pulse Oximetry 91 10/26/24 06:09 Oxygen Delivery Me thod Room Air 10/26/24 00:58 MDM - Dizziness Medical Decision Making Lab work was reviewed, patient was given 2 L of normal saline in her IV. She was given 10 mg of Decadron, 4 mg Zofran, 1 mg of Dilaudid. Patient is resting soundly. Medical Records I reviewed the patient's medical records. Lab Data I reviewed the patient's lab results. 10/26/24 02:17 10/26/24 02:17 Laboratory Results WBC 6.15 10^3/uL (3.29-11.43) 10/26/24 02:17 RBC 4.31 10^6/uL (3.85-5.65) 10/26/24 02:17 Hgb 14.70 g/dL (11.27-16.99) 10/26/24 02:17 Hct 43.9 % (36-47) 10/26/24 02:17 MCV 101.9 fl (85-98) H 10/26/24 02:17 MCH 34.1 pg (27-33) H 10/26/24 02:17 MCHC 33.5 g/dL (30-55) 10/26/24 02:17 RDW 13.3 % (12.1-15.1) 10/26/24 02:17 Plt Count 164 10^3/cmm (157-399) 10/26/24 02:17 MPV 8.5 fL (7.4-10.4) 10/26/24 02:17 Neut % (Auto) 50.4 % 10/26/24 02:17 Lymph % (Auto) 30.7 % 10/26/24 02:17 Hunt % (Auto) 15.1 % 10/26/24 02:17 Eos % (Auto) 2.0 % 10/26/24 02:17 Baso % (Auto) 0.5 % 10/26/24 02:17 Neut # (Auto) 3.10 10^3/uL (1.8-7.7) 10/26/24 02:17 Lymph # (Auto) 1.9 10^3/uL (0.8-4.8) 10/26/24 02:17 Hunt # (Auto) 0.9 10^3/uL (0.2-0.9) 10/26/24 02:17 Eos # (Auto) 0.1 10^3/uL (0.0-0.8) 10/26/24 02:17 Baso # (Auto) 0.0 10^3/uL (0.0-0.1) 10/26/24 02:17 Nucleated RBC % (auto) 0 % 10/26/24 02:17 Nucleated RBCs # 0.0 /100WBC 10/26/24 02:17 Sodium 140 mmol/L (136-145) 10/26/24 02:17 Potassium 3.6 mmol/L (3.5-5.1) 10/26/24 02:17 Chloride 101 mmol/L (98-107) 10/26/24 02:17 Carbon Dioxide 29 mmol/L (22-29) 10/26/24 02:17 Anion Gap 13.6 (5-19) 10/26/24 02:17 BUN 7 mg/dL (8-23) L 10/26/24 02:17 Creatinine 0.7 mg/dL (0.5-0.9) 10/26/24 02:17 GFR Calculation Not Reportable 10/26/24 02:17 Glucose 109 mg/dL (65-115) 10/26/24 02:17 Calculated Osmolality 289 mOsm/kg (285-295) 10/26/24 02:17 Calcium 9.7 mg/dL (8.5-10.5) 10/26/24 02:17 Magnesium 2.5 mg/dL (1.7-2.3) H 10/26/24 02:17 Total Bilirubin 0.5 mg/dL (0.15-1.2) 10/26/24 02:17 AST 25 U/L (0-32) 10/26/24 02:17 ALT 22 U/L (0-33) 10/26/24 02:17 Alkaline Phosphatase 171 U/L (35-105) H 10/26/24 02:17 Total Protein 8.3 g/dL (6.6-8.7) 10/26/24 02:17 Albumin 4.3 g/dL (3.5-5.2) 10/26/24 02:17 Globulin 4.0 g/dL (1.3-4.6) 10/26/24 02:17 All radiology interpretation(s) finalized by discharge Discharge Plan Discharge Patient Disposition: Home Clinical Impression: Glioblastoma multiforme, Acute dehydration Diarrhea Qualifiers: Diarrhea type: unspecified type Qualified Code(s): R19.7 - Diarrhea, unspecified Condition: Stable Prescriptions: No Action metoprolol succinate 25 mg tablet extended release 24 hr 25 mg PO BID levetiracetam 1,000 mg tablet 1,000 mg PO BID levothyroxine 50 mcg capsule 50 mcg PO DAILY lorazepam 1 mg tablet 0.5 mg PO Q6H PRN (Reason: Severe Nausea) Qty: 30 1RF acetaminophen 325 mg capsule 325 mg PO QID PRN (Reason: Pain) apixaban 5 mg tablet 5 mg PO BID cannabidiol 100 mg/mL solution 12.5 mg PO DAILY Patient Comments: at bedtime hydrocodone-acetaminophen 10-325 mg tablet 1 tab PO Q6H PRN (Reason: pain) 5 Days Qty: 20 0RF dexamethasone 4 mg tablet 4 mg PO QID PRN (Reason: weakness) Qty: 120 0RF clobazam 10 mg tablet 10 mg PO BID Qty: 60 5RF Rx Instructions: 1/2 a tab twice a day ondansetron 4 mg tablet,disintegrating See Rx Instructions .ROUTE .COMPLEX Rx Instructions: 4 mg orally ;DISSOLVE 1 TABLET BY MOUTH ON TOP OF TONGUE &SWALLOW EVERY 6 HOURS NEEDED FOR NAUSEA AND VOMITING Discharge Orders: Discharge ED (Routine); Ordered 10/26/24 Ordered By: Amadeo Knox Referrals: Alma Mckay MD [Primary Care Provider] - 1 week Patient Instructions: Dehydration (ED), Acute Diarrhea (ED) Activity Restrictions/Additional Instructions: Thank you for choosing [facility] for your healthcare needs today. Please realize that you were seen in the emergency department and that we are providing you with an emergency medical screening exam and this may not be a complete and all exclusive of all testing and/or medical workup we may need to determine your element or severity of your illness. It is very important that you follow-up as instructed with your primary care provider or specialist for the additional evaluation and to discuss your medical treatment plan. You may return to the emergency department should you have concerns or if your condition changes or worsens in any way. Print Language: Taiwanese Coding Level of Care Code ED A R Specialist for Agustín Ortiz
[2024-10-26] MEDS: sodium chloride 0.9% 1,000 ML 999 ML IV ×2 (02:08→03:54)
[2024-10-26] MEDS: ondansetron 2 mg/ML SDV 2 mL 8 MG IVP (02:09)
[2024-10-26] MEDS: dexamethasone 10 mg/mL INJ IVP (02:09)
[2024-10-26 02:24] LABS: Basophils % 0.5 %; Eosinophils # 0.1 10^3/uL (0.0-0.8); Hematocrit 43.9 % (36-47); Lymphocytes # 1.9 10^3/uL (0.8-4.8); Lymphocytes % 30.7 %; Mean Corpuscular HGB Conc 33.5 g/dL (30-55); Mean Corpuscular Hemoglobin 34.1 pg (27-33); Mean Corpuscular Volume 101.9 fl (85-98); Mean Platelet Volume 8.5 fL (7.4-10.4); Monocytes # 0.9 10^3/uL (0.2-0.9); Monocytes % 15.1 %; Neutrophils % 50.4 %; Nucleated Red Blood Cells % 0 %; Platelet Count 164 10^3/cmm (157-399); Red Blood Count 4.31 10^6/uL (3.85-5.65); Red Cell Distribution Width 13.3 % (12.1-15.1); White Blood Count 6.15 10^3/uL (3.29-11.43)
[2024-10-26 02:34] VITALS: BP 165/87; O2SAT 95
[2024-10-26 02:51] LABS: Alanine Aminotransferase 22 U/L (0-33); Albumin Level 4.3 g/dL (3.5-5.2); Alkaline Phosphatase 171 U/L (35-105); Anion Gap 13.6 (5-19); Aspartate Amino Transferase 25 U/L (0-32); Blood Urea Nitrogen 7 mg/dL (8-23); Calcium 9.7 mg/dL (8.5-10.5); Carbon Dioxide 29 mmol/L (22-29); Chloride 101 mmol/L (98-107); Creatinine Clr Calc Pharmacy 64.3735; Glucose 109 mg/dL (65-115); Magnesium 2.5 mg/dL (1.7-2.3); Osmolality Calculated 289 mOsm/kg (285-295); Potassium 3.6 mmol/L (3.5-5.1); Sodium 140 mmol/L (136-145); Total Bilirubin 0.5 mg/dL (0.15-1.2); Total Protein 8.3 g/dL (6.6-8.7)
[2024-10-26] MEDS: ondansetron 2 mg/ML SDV 2 mL 4 MG IVP (05:00)
[2024-10-26] MEDS: HYDROmorphone 0.5 MG/0.5 ML INJ 1 MG IVP (05:00)
[2024-10-26 05:25] VITALS: BP 137/93; PULSE 77; O2SAT 95
[2024-10-26 06:09] VITALS: BP 146/92; PULSE 78; O2SAT 91
[2024-10-26] MEDS: dexamethasone 4 mg Tablet 32 MG PO (06:09)
== END 2024-10-26 05:39 | disposition home or self-care (01) ==
PROVIDERS: Emergency Provider Emergency Medicine; PCP Internal Medicine
DX: C71.3 Malignant neoplasm of parietal lobe (principal); E86.0 Dehydration; R19.7 Diarrhea, unspecified; I10 Essential (primary) hypertension
CPT/HCPCS: 80053; 83735; 85025; 96361; 96374; 96375; 99284; J1100; J1171; J2405; J7030; J8540

== ENCOUNTER 2024-11-11 08:30 | Oncology outpatient (recurring) (ONCR) | payer MEDICARE, OTHER, SELFPAY ==
[2024-10-28 12:16] LABS: Basophils % 0.7 %; Eosinophils % 0.3 %; Lymphocytes # 1.9 10^3/uL (0.8-4.8); Mean Corpuscular HGB Conc 33.5 g/dL (30-55); Mean Corpuscular Hemoglobin 33.4 pg (27-33); Mean Corpuscular Volume 99.8 fl (85-98); Monocytes # 0.7 10^3/uL (0.2-0.9); Monocytes % 12.4 %; Neutrophils % 52.6 %; Nucleated Red Blood Cells % 0 %; Platelet Count 156 10^3/cmm (157-399); Red Blood Count 4.01 10^6/uL (3.85-5.65); Red Cell Distribution Width 13.3 % (12.1-15.1)
[2024-10-28 12:38] LABS: Alanine Aminotransferase 19 U/L (0-33); Albumin Level 3.9 g/dL (3.5-5.2); Alkaline Phosphatase 120 U/L (35-105); Anion Gap 14.1 (5-19); Aspartate Amino Transferase 20 U/L (0-32); Blood Urea Nitrogen 13 mg/dL (8-23); Calcium 8.9 mg/dL (8.5-10.5); Carbon Dioxide 28 mmol/L (22-29); Chloride 102 mmol/L (98-107); Creatinine Clr Calc Pharmacy 65.4179; Globulin 3.4 g/dL (1.3-4.6); Glucose 166 mg/dL (65-115); Osmolality Calculated 296 mOsm/kg (285-295); Potassium 3.1 mmol/L (3.5-5.1); Sodium 141 mmol/L (136-145); Total Bilirubin 0.2 mg/dL (0.15-1.2); Total Protein 7.3 g/dL (6.6-8.7)
[2024-11-04 14:54] LABS: Basophils % 0.4 %; Eosinophils % 0.3 %; Hematocrit 40.8 % (36-47); Lymphocytes # 1.8 10^3/uL (0.8-4.8); Lymphocytes % 16.6 %; Mean Corpuscular HGB Conc 33.1 g/dL (30-55); Mean Corpuscular Hemoglobin 33.3 pg (27-33); Mean Corpuscular Volume 100.5 fl (85-98); Mean Platelet Volume 8.8 fL (7.4-10.4); Monocytes % 9.2 %; Neutrophils # 7.48 10^3/uL (1.8-7.7); Neutrophils % 69.9 %; Nucleated Red Blood Cells % 0 %; Platelet Count 157 10^3/cmm (157-399); Red Blood Count 4.06 10^6/uL (3.85-5.65); Red Cell Distribution Width 13.9 % (12.1-15.1); White Blood Count 10.69 10^3/uL (3.29-11.43)
[2024-11-04 15:10] LABS: Alanine Aminotransferase 39 U/L (0-33); Albumin Level 3.8 g/dL (3.5-5.2); Alkaline Phosphatase 123 U/L (35-105); Anion Gap 17.6 (5-19); Aspartate Amino Transferase 23 U/L (0-32); Blood Urea Nitrogen 21 mg/dL (8-23); Calcium 8.9 mg/dL (8.5-10.5); Carbon Dioxide 23 mmol/L (22-29); Chloride 102 mmol/L (98-107); Creatinine Clr Calc Pharmacy 65.2437; Globulin 3.2 g/dL (1.3-4.6); Glucose 145 mg/dL (65-115); Osmolality Calculated 292 mOsm/kg (285-295); Potassium 4.6 mmol/L (3.5-5.1); Sodium 138 mmol/L (136-145); Total Bilirubin 0.2 mg/dL (0.15-1.2)
[2024-11-11 08:56] LABS: Basophils % 0.6 %; Eosinophils # 0.1 10^3/uL (0.0-0.8); Eosinophils % 1.7 %; Hematocrit 39.3 % (36-47); Lymphocytes # 2.1 10^3/uL (0.8-4.8); Lymphocytes % 29.1 %; Mean Corpuscular HGB Conc 33.1 g/dL (30-55); Mean Corpuscular Hemoglobin 33.2 pg (27-33); Mean Corpuscular Volume 100.5 fl (85-98); Monocytes # 0.8 10^3/uL (0.2-0.9); Neutrophils # 3.96 10^3/uL (1.8-7.7); Neutrophils % 55.9 %; Nucleated Red Blood Cells % 0 %; Platelet Count 157 10^3/cmm (157-399); Red Blood Count 3.91 10^6/uL (3.85-5.65); Red Cell Distribution Width 13.7 % (12.1-15.1); White Blood Count 7.08 10^3/uL (3.29-11.43)
[2024-11-11 09:13] LABS: Alanine Aminotransferase 28 U/L (0-33); Albumin Level 3.9 g/dL (3.5-5.2); Alkaline Phosphatase 112 U/L (35-105); Anion Gap 16.2 (5-19); Aspartate Amino Transferase 19 U/L (0-32); Blood Urea Nitrogen 17 mg/dL (8-23); Calcium 9.1 mg/dL (8.5-10.5); Carbon Dioxide 27 mmol/L (22-29); Chloride 101 mmol/L (98-107); Creatinine Clr Calc Pharmacy 65.0695; Globulin 3.1 g/dL (1.3-4.6); Glucose 167 mg/dL (65-115); Osmolality Calculated 295 mOsm/kg (285-295); Potassium 4.2 mmol/L (3.5-5.1); Sodium 140 mmol/L (136-145); Total Bilirubin 0.2 mg/dL (0.15-1.2)
[2024-11-11] MEDS: BEVACIZUMAB BVZR IV (10:21)
[2024-11-11] MEDS: [UNRECOGNIZED DRUG - OTHER] IV (10:21)
[2024-11-11] MEDS: sodium chloride 0.9% 250 ML 75 ML IV (10:21)
[2024-11-11 11:26] VITALS: BP 138/92; PULSE 67; RESP 18; TEMP 36.3; O2SAT 95
== END 2024-11-11 23:59 | disposition home or self-care (01) ==
PROVIDERS: Nurse Practitioner Family; PCP Internal Medicine; Visit Provider Internal Medicine
DX: Z53.9 Procedure and treatment not carried out, unspecified reason; C71.3 Malignant neoplasm of parietal lobe; R03.0 Elevated blood-pressure reading, without diagnosis of hypertension; D69.6 Thrombocytopenia, unspecified; I82.401 Acute embolism and thrombosis of unspecified deep veins of right lower extremity; I26.99 Other pulmonary embolism without acute cor pulmonale; Z79.01 Long term (current) use of anticoagulants; Z79.899 Other long term (current) drug therapy; Z79.52 Long term (current) use of systemic steroids
CPT/HCPCS: 36415; 80053; 85025; 96413; 99214; J7050; Q5118

== ENCOUNTER 2024-11-14 12:15 | Oncology outpatient (recurring) (ONCR) | payer MEDICARE, OTHER, SELFPAY ==
--- NOTE | 2024-11-12 12:43 | MM_ITS ---
WS: [id number] DIAGNOSTIC BILATERAL DIGITAL BREAST TOMOSYNTHESIS MAMMOGRAPHY WITH CAD HISTORY: BILATERAL BREAST PAIN, patient is not having breast pain at this time and that has been several months since any breast pain. No palpable masses. COMPARISON: 12/20/2023, 08/08/2022 TECHNIQUE: Bilateral craniocaudad, mediolateral oblique, and mediolateral views are submitted with tomosynthesis and SM. Computer aided detection utilized. Breast composition: The breasts are almost entirely fatty. Stable appearance of each breast. There is a well-circumscribed 4 mm mass upper outer quadrant LEFT breast which is stable. No architectural distortion or mass. MM/MM diag BI tomosynthesis [id number] IMPRESSION: BI-RADS: 2 - Benign. FOLLOW UP: 1 Year Follow-up
--- NOTE | 2024-11-14 12:15 | MR_ITS ---
WS: [id number] MRI BRAIN WITH AND WITHOUT CONTRAST HISTORY: 2 month f/u after tumor removal, 2 surgeries for tumor removal. COMPARISON: Noncontrast MRI 09/23/2024, MRI with and without contrast 09/16/2024 and 09/05/2024 TECHNIQUE: Multiplanar imaging performed through the brain with MultiHance 19 ml's IV. Large posterior craniotomy with tumor resection involving the RIGHT parietal occipital lobe. At the tumor resection site there is a large amount of hemosiderin. There is extensive cerebral edema surrounding the resection cavity extending into the corpus callosum and anteriorly into the frontal temporal lobes. Mixed signal through the resection site. Mild dural enhancement on the RIGHT centered at the surgical site. There is peripheral contrast enhancement surrounding the surgical site. This is predominantly along the superior margin but extends medial and lateral and towards the corpus callosum. There are additional areas of increased signal on the precontrast T1 sequence. As compared to the most recent study of 09/23/2024 the extent of peripheral enhancement and mixed signal is probably not changed. No definite tumor progression. This will need to be closely evaluated on continued follow-up studies. No hydrocephalus. No acute infarct. Paranasal sinuses: Well aerated with no significant disease. Mastoid air cells: Normal. Calvarium and scalp: RIGHT parietal craniotomy. MR/MR head wo/w con [id number] IMPRESSION: 1. Large tumor resection site centered in the RIGHT parietal occipital region is reidentified. There is hemosiderin and peripheral T1 increased signal and pe ripheral postcontrast enhancement in the resection cavity. Very similar to the prior study of 09/23/2024. The peripheral enhancement may be due to posttreatment changes. Areas of tumor recurrence are not completely excluded. Serial MRI josé miguel luations will be most helpful. 2. No obvious progression since 09/23/2024 taking into consideration the differe nce in imaging technique.
[2024-11-14] MEDS: gadobenate dimeglumine 20 mL vial IV (13:02)
== END 2024-11-20 23:59 | disposition home or self-care (01) ==
LOC: ONCMED 12:38 → RAD 11-15 → ONCMED 11-18 09:58
PROVIDERS: PCP Internal Medicine; Visit Provider Nurse Practitioner Family
DX: Z53.9 Procedure and treatment not carried out, unspecified reason; C71.9 Malignant neoplasm of brain, unspecified; Z98.890 Other specified postprocedural states
CPT/HCPCS: 70553; 77062; G0279

== ENCOUNTER 2024-11-29 10:45 | Emergency (ER) | payer MEDICARE, OTHER, SELFPAY ==
[2024-11-29 10:56] VITALS: BP 129/86; PULSE 74; RESP 16; TEMP 36.5; O2SAT 95; BMI 29.7
--- NOTE | 2024-11-29 11:05 | W.ED.SKABFB ---
HPI - Skin/Abscess/Foreign Bdy General: Chief complaint: Skin/Abscess/Foreign Body Stated complaint: abcess on female parts Time Seen by Provider: 11/29/24 10:56 Source: patient and other (home health/hospice music therapy (family member?)) Mode of arrival: wheelchair Limitations: no limitations History of Present Illness: Patient is a 73-year-old female presents to ED today along with family for concerns of a genital abscess that family states she noticed 1 to 2 days ago. She is complaining of pain to the area and pain when seated. They have not noticed any drainage from the area. No fevers. Patient is receiving routine follow-up through the [facility] oncology department for glioblastoma. MD complaint: abscess/boil Onset (ago): day(s) Tetanus up to date: yes Location: genitals Severity: mild Pain Consistency: constant Relieving factors: none Exacerbating factors: other (sitting) Context: none Associated symptoms: Reports no associated symptoms; Deny fever(s) or vomiting Treatments prior to arrival: none Related Data Home Medications ?Medication ?Instructions ?Recorded ?Confirmed levothyroxine 50 mcg capsule 50 mcg PO DAILY 10/13/22 11/29/24 levetiracetam 1,000 mg tablet 1,000 mg PO BID 10/09/23 11/29/24 metoprolol succinate 25 mg 25 mg PO BID 10/09/23 11/29/24 tablet,extended release 24 hr acetaminophen 325 mg capsule 325 mg PO QID PRN Pain 08/20/24 11/29/24 apixaban 5 mg tablet 5 mg PO BID 08/20/24 11/29/24 cannabidiol 100 mg/mL oral solution 12.5 mg PO DAILY 08/20/24 11/29/24 ondansetron 4 mg disintegrating See Rx Instructions .Route .COMPLEX 09/05/24 11/29/24 tablet Previous Rx's ?Medication ?Instructions ?Recorded lorazepam 1 mg tablet 0.5 mg (1/2 x 1 mg) PO Q6H PRN 02/29/24 Severe Nausea #30 tabs clobazam 10 mg tablet 10 mg PO BID #60 tabs 07/16/24 dexamethasone 4 mg tablet 4 mg PO QID PRN weakness #120 tabs 10/24/24 hydrocodone 10 mg-acetaminophen 1 tab PO Q6H PRN pain 5 days #20 10/24/24 325 mg tablet tabs phenytoin 50 mg chewable tablet See Rx Instructions PO .COMPLEX 90 10/30/24 (Dilantin Infatabs) days #360 tabs potassium chloride 20 mEq 20 meq PO DAILY #90 tabs 11/19/24 tablet,extended release escitalopram oxalate 10 mg tablet 10 mg PO DAILY #30 tabs 11/29/24 sulfamethoxazole 800 1 tab PO BID 7 days #14 tabs 11/29/24 mg-trimethoprim 160 mg tablet (Bactrim DS) Allergies Allergy/AdvReac Type Severity Reaction Status Date / Time adhesive tape Allergy Mild Unknown Verified 11/29/24 10:19 Review of Systems Const: Denies: fever(s) GI: Denies: abdominal pain, vomiting or change in bowel habits : Reports: other (genital abscess/pain) PFS ED PFSH: Medical History Hypertension Hypothyroidism Surgical History History of craniotomy (08/25/23) History of craniotomy (01/31/24) History of left nephrectomy for kidney donation Family History Father Cerebral aneurysm Mother Diabetes Congestive heart failure (CHF) Renal failure Brother Diabetes Heart disease Social History Smoking and tobacco/nicotine status: never used tobacco/nicotine Alcohol intake: never Physical Exam Const: COMMON NORMALS: no acute distress, average body habitus, patient oriented x3, no limitations, healthy appearing, alert and well nourished : OTHER: R Bartholin vs R labia majora abscess; about a quarter size; actively draining; no significant surrounding erythema; no apurva's Extremity: GENERAL: Yes normal exam except as noted Neuro: COMMON NORMALS: patient oriented x3 SENSORIUM/ORIENTATION: Yes alert Procedures Abscess I/D Site: bartholin's gland Side (if applicable): right Local Anesthetic: lidocaine 1% and with epi Amount of anesthesia used (mL): 3.0 Technique: incised with #11 blade Amount of fluid expressed (mL): 6.0 Packing used?: plain Course Vital Signs: Vital signs: Vital Signs Temperature 97.7 F 11/29/24 10:56 Pulse Rate 74 11/29/24 10:56 Respiratory Rate 16 11/29/24 10:56 Blood Pressure 129/86 11/29/24 10:56 Pulse Oximetry 95 11/29/24 10:56 Oxygen Delivery Me thod Room Air 11/29/24 10:56 MDM - Skin/Abscess/Foreign Bdy Medicial Decision Making Abscess was drained and packed. Culture obtained. Will place her on antibiotics. Recommend follow-up with gynecology. Due to length of gynecology follow-up appointments, she will probably require follow-up with primary care in the meantime for wound re-examination and possible re-packing. Return to ED precautions discussed. Medical Records I reviewed the patient's medical records. No radiology studies performed this visit Discharge Plan Discharge Patient Disposition: Home Clinical Impression: Superficial abscess of perineum Condition: Stable Prescriptions: New sulfamethoxazole-trimethoprim [Bactrim DS] 800-160 mg tablet 1 tab PO BID 7 Days Qty: 14 0RF No Action metoprolol succinate 25 mg tablet extended release 24 hr 25 mg PO BID levetiracetam 1,000 mg tablet 1,000 mg PO BID levothyroxine 50 mcg capsule 50 mcg PO DAILY lorazepam 1 mg tablet 0.5 mg PO Q6H PRN (Reason: Severe Nausea) Qty: 30 1RF acetaminophen 325 mg capsule 325 mg PO QID PRN (Reason: Pain) apixaban 5 mg tablet 5 mg PO BID cannabidiol 100 mg/mL solution 12.5 mg PO DAILY Patient Comments: at bedtime hydrocodone-acetaminophen 10-325 mg tablet 1 tab PO Q6H PRN (Reason: pain) 5 Days Qty: 20 0RF dexamethasone 4 mg tablet 4 mg PO QID PRN (Reason: weakness) Qty: 120 0RF clobazam 10 mg tablet 10 mg PO BID Qty: 60 5RF Rx Instructions: 1/2 a tab twice a day phenytoin [Dilantin Infatabs] 50 mg tablet,chewable See Rx Instructions PO .COMPLEX 90 Days Qty: 360 5RF Rx Instructions: 1 p.o. every morning, 1 p.o. q. afternoon, and 2 tablets p.o. at bedtime potassium chloride 20 mEq tablet extended release 20 meq PO DAILY Qty: 90 0RF escitalopram oxalate 10 mg tablet 10 mg PO DAILY Qty: 30 2RF Rx Instructions: Take 1/2 tab in evening for 7 days then increase to 1 tab. ondansetron 4 mg tablet,disintegrating See Rx Instructions .ROUTE .COMPLEX Rx Instructions: 4 mg orally ;DISSOLVE 1 TABLET BY MOUTH ON TOP OF TONGUE &SWALLOW EVERY 6 HOURS NEEDED FOR NAUSEA AND VOMITING Discharge Orders: Discharge ED (Routine); Ordered 11/29/24 Ordered By: Breanna Balbuena Referrals: Alma Mckay MD [Primary Care Provider, Internal Medicine] Patient Instructions: Bartholin's Abscess, Sitz Bath (DC) Activity Restrictions/Additional Instructions: As we discussed, she may do sitz baths as much as possible to help with cleaning the area and continuing to help facilitate drainage. Begin her antibiotics immediately. She may use her home medications as needed for discomfort. Please be very careful not to inadvertently pull the packing out when wiping after toileting. Packing and abscess will need to be reevaluated in approximately 72 hours and potentially repacked. We talked about following up with primary care for this. Will place referral for gynecology. She may return to the emergency department at anytime for any further concerns you may have. Culture obtained on today's visit. Print Language: Pashto Coding Level of Care Code ED Math Teacher for Agustín Ortiz
[2024-11-29 12:04] VITALS: BP 126/85; PULSE 74; O2SAT 94
--- NOTE | 2024-11-29 15:01 | DCPLANNER ---
messaged [facility] for er f/u
== END 2024-11-29 12:05 | disposition home or self-care (01) ==
PROVIDERS: Emergency Provider Physician Assistant; PCP Internal Medicine
DX: L02.215 Cutaneous abscess of perineum (principal); I10 Essential (primary) hypertension
CPT/HCPCS: 56420; 99283

== ENCOUNTER 2024-12-09 09:45 | Oncology outpatient (recurring) (ONCR) | payer MEDICARE, OTHER, SELFPAY ==
[2024-11-29] MEDS: sodium chloride 0.9% 1,000 ML 999 ML IV (09:17)
[2024-11-29 09:58] VITALS: BP 130/95; PULSE 82; RESP 16; TEMP 36.6; O2SAT 92
[2024-12-02 09:57] LABS: Basophils # 0.1 10^3/uL (0.0-0.1); Basophils % 0.8 %; Eosinophils # 0.1 10^3/uL (0.0-0.8); Eosinophils % 0.9 %; Hematocrit 40.9 % (36-47); Lymphocytes # 1.8 10^3/uL (0.8-4.8); Lymphocytes % 27.8 %; Mean Corpuscular HGB Conc 33.3 g/dL (30-55); Mean Corpuscular Hemoglobin 33.2 pg (27-33); Mean Corpuscular Volume 99.8 fl (85-98); Mean Platelet Volume 8.8 fL (7.4-10.4); Monocytes # 0.8 10^3/uL (0.2-0.9); Monocytes % 11.9 %; Neutrophils # 3.56 10^3/uL (1.8-7.7); Nucleated Red Blood Cells % 0 %; Platelet Count 148 10^3/cmm (157-399); Red Cell Distribution Width 13.4 % (12.1-15.1); White Blood Count 6.47 10^3/uL (3.29-11.43)
[2024-12-02 10:28] LABS: Alanine Aminotransferase 25 U/L (0-33); Albumin Level 3.4 g/dL (3.5-5.2); Alkaline Phosphatase 120 U/L (35-105); Anion Gap 17.8 (5-19); Aspartate Amino Transferase 21 U/L (0-32); Blood Urea Nitrogen 16 mg/dL (8-23); Carbon Dioxide 24 mmol/L (22-29); Chloride 104 mmol/L (98-107); Creatinine Clr Calc Pharmacy 63.3292; Globulin 3.7 g/dL (1.3-4.6); Glucose 232 mg/dL (65-115); Osmolality Calculated 303 mOsm/kg (285-295); Potassium 3.8 mmol/L (3.5-5.1); Sodium 142 mmol/L (136-145); Total Bilirubin 0.2 mg/dL (0.15-1.2); Total Protein 7.1 g/dL (6.6-8.7)
[2024-12-02 10:41] LABS: Bilirubin Urine Negative (Negative); Blood Urine Negative (Negative); Glucose Urine UA Negative (Normal); Ketones Urine Trace (Negative); Leukocyte Esterase Urine Trace (Negative); Nitrate Urine Negative (Negative); Protein Urine 1+ (Negative); Specific Gravity, Urine 1.028 (1.005-1.030); Urine Appearance Cloudy (CLEAR); Urine Color Dark Yellow (Yellow); pH Urine 5.5 (5-7)
[2024-12-02 10:46] LABS: Add Urine Microscopic? YES
[2024-12-02 11:26] LABS: UA Manual Slide Review YES; UA Slide Review UA Slide Review Perf
[2024-12-02 11:27] LABS: Hyaline Casts Urine 15-25 /lpf; Squamous Epithelial Cell Urine 0-4 /hpf (0-5); WBC Urine 0-4 /hpf (0-5)
[2024-12-09 10:26] LABS: Basophils % 0.5 %; Eosinophils # 0.1 10^3/uL (0.0-0.8); Eosinophils % 0.6 %; Hematocrit 42.1 % (36-47); Lymphocytes # 1.7 10^3/uL (0.8-4.8); Lymphocytes % 20.3 %; Mean Corpuscular HGB Conc 32.3 g/dL (30-55); Mean Corpuscular Hemoglobin 32.4 pg (27-33); Mean Corpuscular Volume 100.2 fl (85-98); Mean Platelet Volume 8.7 fL (7.4-10.4); Monocytes # 0.8 10^3/uL (0.2-0.9); Monocytes % 9.8 %; Neutrophils # 5.62 10^3/uL (1.8-7.7); Neutrophils % 66.9 %; Nucleated Red Blood Cells % 0 %; Platelet Count 167 10^3/cmm (157-399); Red Cell Distribution Width 13.5 % (12.1-15.1); White Blood Count 8.39 10^3/uL (3.29-11.43)
[2024-12-09 10:41] LABS: Alanine Aminotransferase 47 U/L (0-33); Albumin Level 3.3 g/dL (3.5-5.2); Alkaline Phosphatase 108 U/L (35-105); Anion Gap 19.8 (5-19); Aspartate Amino Transferase 33 U/L (0-32); Blood Urea Nitrogen 18 mg/dL (8-23); Calcium 8.5 mg/dL (8.5-10.5); Carbon Dioxide 22 mmol/L (22-29); Chloride 101 mmol/L (98-107); Creatinine Clr Calc Pharmacy 65.2437; Globulin 3.3 g/dL (1.3-4.6); Glucose 237 mg/dL (65-115); Osmolality Calculated 298 mOsm/kg (285-295); Potassium 3.8 mmol/L (3.5-5.1); Sodium 139 mmol/L (136-145); Total Bilirubin 0.2 mg/dL (0.15-1.2); Total Protein 6.6 g/dL (6.6-8.7)
[2024-12-09 12:15] LABS: Bilirubin Urine Negative (Negative); Blood Urine Negative (Negative); Glucose Urine UA 1+ (Normal); Ketones Urine Trace (Negative); Leukocyte Esterase Urine Negative (Negative); Nitrate Urine Negative (Negative); Protein Urine Negative (Negative); Specific Gravity, Urine 1.029 (1.005-1.030); Urine Appearance Clear (CLEAR); Urine Color Dark Yellow (Yellow); pH Urine 5.5 (5-7)
[2024-12-09 12:21] LABS: Add Urine Microscopic? YES; Bacteria Urine None Seen /hpf; RBC Urine 0-2 /hpf (0-2); Squamous Epithelial Cell Urine 0-5 /hpf (0-5); WBC Urine 0-5 /hpf (0-5)
[2024-12-09] MEDS: sodium chloride 0.9% 250 ML 75 ML IV (12:34)
[2024-12-09] MEDS: SODIUM CHLORIDE 0.9% IV (12:35)
[2024-12-09] MEDS: BEVACIZUMAB BVZR IV (12:35)
[2024-12-09 12:49] LABS: UA Slide Review UA Slide Review Perf
[2024-12-09 12:50] LABS: Add Urine Culture? No; Calcium Oxalate Crystals Urine 15-25 /hpf
[2024-12-09 13:53] VITALS: BP 124/74; PULSE 74; RESP 17; TEMP 36.1; O2SAT 98
== END 2024-12-09 23:59 | disposition home or self-care (01) ==
PROVIDERS: Internal Medicine; Internal Medicine Medical Oncology; Nurse Practitioner; PCP Internal Medicine; Visit Provider Nurse Practitioner Family
DX: Z53.9 Procedure and treatment not carried out, unspecified reason; Z51.11 Encounter for antineoplastic chemotherapy; Z51.12 Encounter for antineoplastic immunotherapy; C71.3 Malignant neoplasm of parietal lobe; R30.0 Dysuria; D69.6 Thrombocytopenia, unspecified; Z91.89 Other specified personal risk factors, not elsewhere classified; I26.99 Other pulmonary embolism without acute cor pulmonale; N76.4 Abscess of vulva; I82.4Z1 Acute embolism and thrombosis of unspecified deep veins of right distal lower extremity; Z79.899 Other long term (current) drug therapy
CPT/HCPCS: 80053; 81001; 85025; 96360; 96413; 99213; 99214; J7030; J7050; Q5118

== ENCOUNTER 2024-12-10 12:41 | Emergency (ER) | payer MEDICARE, OTHER, SELFPAY ==
[2024-12-10 12:50] VITALS: BP 125/80; PULSE 80; RESP 17; TEMP 36.5; O2SAT 94; BMI 33.3
[2024-12-10 13:10] LABS: Basophils % 0.4 %; Eosinophils # 0.1 10^3/uL (0.0-0.8); Eosinophils % 0.7 %; Hematocrit 42.2 % (36-47); Lymphocytes # 1.8 10^3/uL (0.8-4.8); Lymphocytes % 25.4 %; Mean Corpuscular HGB Conc 33.4 g/dL (30-55); Mean Corpuscular Hemoglobin 33.2 pg (27-33); Mean Corpuscular Volume 99.3 fl (85-98); Mean Platelet Volume 8.6 fL (7.4-10.4); Monocytes # 0.7 10^3/uL (0.2-0.9); Monocytes % 10.4 %; Neutrophils # 4.39 10^3/uL (1.8-7.7); Neutrophils % 61.4 %; Nucleated Red Blood Cells % 0 %; Platelet Count 161 10^3/cmm (157-399); Red Blood Count 4.25 10^6/uL (3.85-5.65); Red Cell Distribution Width 13.6 % (12.1-15.1); White Blood Count 7.14 10^3/uL (3.29-11.43)
[2024-12-10 13:33] LABS: INR 0.85 (0.8-1.2)
[2024-12-10 13:38] LABS: Alanine Aminotransferase 53 U/L (0-33); Albumin Level 3.5 g/dL (3.5-5.2); Alkaline Phosphatase 123 U/L (35-105); Aspartate Amino Transferase 39 U/L (0-32); Blood Urea Nitrogen 20 mg/dL (8-23); Calcium 8.9 mg/dL (8.5-10.5); Carbon Dioxide 27 mmol/L (22-29); Chloride 102 mmol/L (98-107); Creatinine Clr Calc Pharmacy 65.2437; Globulin 3.6 g/dL (1.3-4.6); Glucose 164 mg/dL (65-115); Osmolality Calculated 296 mOsm/kg (285-295); Sodium 140 mmol/L (136-145); Total Bilirubin 0.2 mg/dL (0.15-1.2); Total Protein 7.1 g/dL (6.6-8.7)
--- NOTE | 2024-12-10 14:27 | ED_ITS ---
HPI - Headache 2 General: Chief Complaint: Headache Stated Complaint: CASH, nausea, had an infusion yesterday for cancer Time Seen by Provider: 12/10/24 14:15 Source: patient and family Mode of arrival: wheelchair Limitations: no limitations History of Present Illness: Patient is a 73-year-old female here with a complaint of a headache. Patient is under the care of of our [facility] oncology team for treatment of her glioblastoma. She is doing treatments of Avastin and Bevacizumab. Patient states after her IV infusion, couple of days later she will usually develop headache to the right side of her head and periorbitally. Family with her today states they normally treat this with [id number] prescription pain medication that they have. Patient states she had an infusion yesterday and states she developed the headache shortly after which was abnormal. She states the headache feels similar to previous headaches. She states yesterday it felt like a rusted spoon was being stabbed in her eye. Family states they gave her hydrocodone as well as Aleve/Advil this morning and upon arrival she tells me her headache is significantly improved. She has no neurologic complaints. No systemic symptoms. No fevers. She reports chronic visual deficits due to three previous brain surgeries. MD elicited complaint: headache Onset (ago): hour(s) Location: right and retro-orbital Severity: moderate Pain scale (0-10): 6 Quality & Timing: similar to previous headaches Exacerbating factors: none Relieving factors: NSAIDs Context: other (Occurred after IV chemotherapy) Associated symptoms: Deny chest pain, fever(s), malaise, nausea or vomiting Treatments prior to arrival: prescription analgesic and other (aleve/advil) Related Data Home Medications ?Medication ?Instructions ?Recorded ?Confirmed levothyroxine 50 mcg capsule 50 mcg PO DAILY 10/13/22 12/09/24 levetiracetam 1,000 mg tablet 1,000 mg PO BID 10/09/23 12/09/24 metoprolol succinate 25 mg 25 mg PO BID 10/09/2312/09 tablet,extended release 24 hr acetaminophen 325 mg capsule 325 mg PO QID PRN Pain 12/09/24 apixaban 5 mg tablet 5 mg PO BID 08/20/24 5 cannabidiol 100 mg/mL oral solution 12.5 mg PO DAILY 0 08/20/24 12/09/24 ondansetron 4 mg disintegrating See Rx Instructions .R oute .COMPLEX 09/05/24 12/09/24 tablet Previous Rx's ?Medication ?Instructions ?Recorded lorazepam 1 mg tablet 0.5 mg (1/2 x 1 mg) PO Q6H P RN 02/29/24 Severe Nausea #30 tabs clobazam 10 mg tablet 10 mg PO BID #60 tabs dexamethasone 4 mg tablet 4 mg PO QID PRN weakness #12 0 tabs 10/24/24 hydrocodone 10 mg-acetaminophen 1 tab PO Q6H PRN pain 5 days #20 10/24/24 325 mg tablet tabs phenytoin 50 mg chewable tablet See Rx Instructions PO .COMPLEX 90 10/30/24 (Dilantin Infatabs) days #360 tabs potassium chloride 20 mEq 20 meq PO DAILY #90 tabs tablet,extended release escitalopram oxalate 10 mg tablet 10 mg PO DAILY #30 t abs 11/29/24 Allergies Allergy/AdvReac Type Severity Reaction Status Date / Time adhesive tape Allergy Mild Unknown Verified 12/09/24 10:00 Review of Systems 2 Const: Denies: fever(s), chills, body aches, fatigue or malaise Eyes: Reports: other (chronic visual changes from previous brain surgeries; at baseline) Card: Denies: chest pain Resp: Denies: dyspnea GI: Denies: nausea or vomiting Musc: Denies: neck pain or back pain Neuro: Reports: headache(s); Denies: numbness in extremities, weakness in extremities or sensory changes PFSH ED 2 PFSH: Medical History Hypertension Hypothyroidism Surgical History History of craniotomy (08/25/23) History of craniotomy (01/31/24) History of left nephrectomy for kidney donation Family History Father Cerebral aneurysm Mother Diabetes Congestive heart failure (CHF) Renal failure Brother Diabetes Heart disease Social History Smoking and tobacco/nicotine status: never used tobacco/nicotine Alcohol intake: never Physical Exam 2 Const: COMMON NORMALS: no acute distress, average body habitus, patient oriented x3, no limitations, healthy appearing, alert and well nourished G ENERAL APPEARANCE: cooperative ORIENTATION/CONSCIOUSNESS: Yes awake, Yes oriented to person and Yes oriented to place HENMT: COMMON NORMALS: normocephalic and atraumatic HEAD & SCALP: normal to inspection, normocephalic and atraumatic FACE & SINUS: normal facial exam and face symmetric Eye: COMMON NORMALS: Equal, round and reactive pupils present and EOMs intact bilaterally GENERAL EYE: appearance normal, both eyes and all related structures and normal light reflex PUPIL: Yes Equal, round and reactive pupils present DIRECT OPHTHALMOSCOPY: Yes normal light reflex Neck/C-Spine: COMMON NORMALS: full ROM, no lymphadenopathy, supple and no meningeal signs Resp: COMMON NORMALS: normal respiratory effort and clear to auscultation bilaterally AUSCULTATION: clear to auscultation bilaterally Cardio: COMMON NORMALS: regular rate and regular rhythm RATE: regular rate RHYTHM: regular rhythm Neuro: YI COMA SCALE: document GCS findings [place] coma scale eye opening: Spontaneous Yi coma scale verbal response: Orientated Yi coma scale motor response: Obey commands [place] coma scale total score: 15 COMMON NORMALS: patient oriented x3, CN's II-XII intact bilaterally, moves all extremities, no focal motor deficits and no sensory deficits noted S ENSORIUM/ORIENTATION: Yes alert, Yes oriented to person and Yes oriented to place MENINGEAL SIGNS: Yes no meningeal signs Skin: COMMON NORMALS: no rashes or lesions noted GENERAL SKIN EXAM: no rashes or lesions noted Course 2 Vital Signs: Vital signs: Vital Signs Temperature 97.7 F 12/10/24 12:50 Pulse Rate 76 12/10/24 15:23 Respiratory Rate 16 12/10/24 15:32 Blood Pressure 131/94 12/10/24 15:23 Pulse Oximetry 95 12/10/24 15:32 Oxygen Delivery Me thod Room Air 12/10/24 15:23 MDM - Headache Medical Decision Making On re-examination, patient is resting comfortably. She is currently rating her headache at a 0/10. She feels comfortable going home. Family feels comfortable with this plan. Blood work here overall is nonactionable. CT of her head is unremarkable. Medical Records I reviewed the patient's medical records. Lab Data I reviewed the patient's lab results. 12/10/24 13:03 12/10/24 13:[address] 12/10/24 14:43 IMPRESSION: 1. Previous right parietal craniotomy. Underlying postoperative changes of the right parietal lobe, with decreased mass effect since 10/10/2024. Currently no midline shift or ventricular effacement. 2. Stable postoperative subdural collection beneath the craniotomy. 3. No acute intracranial hemorrhage. Laboratory Results WBC 7.14 10^3/uL (3.29-11.43) 12/10/24 13:03 RBC 4.25 10^6/uL (3.85-5.65) 12/10/24 13:03 Hgb 14.10 g/dL (11.27-16.99) 12/10/24 13:03 Hct 42.2 % (36-47) 12/10/24 13:03 MCV 99.3 fl (85-98) H 12/10/24 13:03 MCH 33.2 pg (27-33) H 12/10/24 13:03 MCHC 33.4 g/dL (30-55) 12/10/24 13:03 RDW 13.6 % (12.1-15.1) 12/10/24 13:03 Plt Count 161 10^3/cmm (157-399) 12/10/24 13:03 MPV 8.6 fL (7.4-10.4) 12/10/24 13:03 Neut % (Auto) 61.4 % 12/10/24 13:03 Lymph % (Auto) 25.4 % 12/10/24 13:03 [place] % (Auto) 10.4 % 12/10/24 13:03 Eos % (Auto) 0.7 % 12/10/24 13:03 Baso % (Auto) 0.4 % 12/10/24 13:03 Neut # (Auto) 4.39 10^3/uL (1.8-7.7) 12/10/24 13:03 Lymph # (Auto) 1.8 10^3/uL (0.8-4.8) 12/10/24 13:03 [place] # (Auto) 0.7 10^3/uL (0.2-0.9) 12/10/24 13:03 Eos # (Auto) 0.1 10^3/uL (0.0-0.8) 12/10/24 13:03 Baso # (Auto) 0.0 10^3/uL (0.0-0.1) 12/10/24 13:03 Nucleated RBC % (auto) 0 % 12/10/24 13:03 Nucleated RBCs # 0.0 /100WBC 12/10/24 13:03 PT 12.30 SECONDS (12.1-14.9) 12/10/24 13:03 INR 0.85 (0.8-1.2) 12/10/24 13:03 Sodium 140 mmol/L (136-145) 12/10/24 13:03 Potassium 4.0 mmol/L (3.5-5.1) 12/10/24 13:03 Chloride 102 mmol/L (98-107) 12/10/24 13:03 Carbon Dioxide 27 mmol/L (22-29) 12/10/24 13:03 Anion Gap 15.0 (5-19) 12/10/24 13:03 BUN 20 mg/dL (8-23) 12/10/24 13:03 Creatinine 0.6 mg/dL (0.5-0.9) 12/10/24 13:03 GFR Calculation Not Reportable 12/10/24 13:03 Glucose 164 mg/dL (65-115) H 12/10/24 13:03 Calculated Osmolality 296 mOsm/kg (285-295) H 12/10/24 13:03 Calcium 8.9 mg/dL (8.5-10.5) 12/10/24 13:03 Total Bilirubin 0.2 mg/dL (0.15-1.2) 12/10/24 13:03 AST 39 U/L (0-32) H 12/10/24 13:03 ALT 53 U/L (0-33) H 12/10/24 13:03 Alkaline Phosphatase 123 U/L (35-105) H 12/10/24 13:03 Total Protein 7.1 g/dL (6.6-8.7) 12/10/24 13:03 Albumin 3.5 g/dL (3.5-5.2) 12/10/24 13:03 Globulin 3.6 g/dL (1.3-4.6) 12/10/24 13:03 All radiology interpretation(s) finalized by discharge Discharge Plan Discharge Patient Disposition: Home Clinical Impression: Headache Qualifiers: Headache type: unspecified Headache chronicity pattern: acute headache I ntractability: not intractable Qualified Code(s): R51.9 - Headache, unspecified Condition: Stable Prescriptions: No Action metoprolol succinate 25 mg tablet extended release 24 hr 25 mg PO BID levetiracetam 1,000 mg tablet 1,000 mg PO BID levothyroxine 50 mcg capsule 50 mcg PO DAILY lorazepam 1 mg tablet 0.5 mg PO Q6H PRN (Reason: Severe Nausea) Qty: 30 1RF acetaminophen 325 mg capsule 325 mg PO QID PRN (Reason: Pain) apixaban 5 mg tablet 5 mg PO BID cannabidiol 100 mg/mL solution 12.5 mg PO DAILY Patient Comments: at bedtime hydrocodone-acetaminophen 10-325 mg tablet 1 tab PO Q6H PRN (Reason: pain) 5 Days Qty: 20 0RF dexamethasone 4 mg tablet 4 mg PO QID PRN (Reason: weakness) Qty: 120 0RF clobazam 10 mg tablet 10 mg PO BID Qty: 60 5RF Rx Instructions: 1/2 a tab twice a day phenytoin [Dilantin Infatabs] 50 mg tablet,chewable See Rx Instructions PO .COMPLEX 90 Days Qty: 360 5RF Rx Instructions: 1 p.o. every morning, 1 p.o. q. afternoon, and 2 tablets p.o. at bedtime potassium chloride 20 mEq tablet extended release 20 meq PO DAILY Qty: 90 0RF escitalopram oxalate 10 mg tablet 10 mg PO DAILY Qty: 30 2RF Rx Instructions: Take 1/2 tab in evening for 7 days then increase to 1 tab. ondansetron 4 mg tablet,disintegrating See Rx Instructions .ROUTE .COMPLEX Rx Instructions: 4 mg orally ;DISSOLVE 1 TABLET BY MOUTH ON TOP OF TONGUE &SWALLOW EVERY 6 HOURS NEEDED FOR NAUSEA AND VOMITING Discharge Orders: Discharge ED (Routine); Ordered 12/10/24 Ordered By: Breanna Balbuena Referrals: Alma Mckay MD [Primary Care Provider, Internal Medicine] Patient Instructions: Acute Headache (DC) Print Language: Citizen Of [place] Coding Level of Care Code ED Switchboard Inspector for Chg Fwd
--- NOTE | 2024-12-10 14:43 | CTR_ITS ---
PROCEDURE INFORMATION: Exam: CT Head Without Contrast Exam date and time: 12/10/2024 2:55 PM Age: 73 years old Clinical indication: Pain; Headache not specified; Prior surgery; Surgery date: 6+ months; Surgery type: Brain; Additional info: Headache; HX of brain cancer/previous surgeries TECHNIQUE: Imaging protocol: Computed tomography of the head without contrast. Radiation optimization: All CT scans at this facility use at least one of these dose optimization techniques: automated exposure control; mA and/or kV adjustment per patient size (includes targeted exams where dose is matched to clinical indication); or iterative reconstruction. COMPARISON: MR head wo/w con [id number] 11/14/2024 12:35 PM RADIATION DOSE METRICS: Total DLP (mGy-cm): 1171.52 FINDINGS: Brain: Postoperative changes of the right parietal lobe, with stable appearance of small subdural collection beneath the craniotomy inner table. Decreased mass effect since 10/10/2024, with no midline shift currently demonstrated. There are global involutional changes of the brain which are in keeping with the patient's age. Periventricular hypodensities are nonspecific but most likely reflect chronic microvascular ischemic disease. No acute intracranial hemorrhage. Cerebral ventricles: There is no ventricular effacement. No hydrocephalus. Paranasal sinuses: The visualized sinuses are unremarkable. Mastoid air cells: There is no mastoid effusion detected. Bones: Previous right parietal craniotomy. Soft tissues: Unremarkable. CT/CT head wo con* [id number] IMPRESSION: 1. Previous right parietal craniotomy. Underlying postoperative changes of the right parietal lobe, with decreased mass effect since 10/10/2024. Currently no midline shift or ventricular effacement. 2. Stable postoperative subdural collection beneath the craniotomy. 3. No acute intracranial hemorrhage.
[2024-12-10 15:23] VITALS: BP 131/94; PULSE 76; RESP 14; O2SAT 93
[2024-12-10 15:32] VITALS: RESP 16; O2SAT 95
[2024-12-10] MEDS: dexamethasone 10 mg/mL INJ 6 MG IV (15:32)
[2024-12-10] MEDS: diphenhydrAMINE 50 mg/mL SDV 1mL 25 MG IVP (15:32)
[2024-12-10] MEDS: morphine 4 mg/mL SDV 1 mL IVP (15:32)
[2024-12-10 16:25] VITALS: BP 169/91; PULSE 65; O2SAT 93
== END 2024-12-10 16:27 | disposition home or self-care (01) ==
PROVIDERS: Emergency Medicine; Emergency Provider Physician Assistant; PCP Internal Medicine
DX: R51.9 Headache, unspecified (principal); I10 Essential (primary) hypertension
CPT/HCPCS: 36415; 70450; 80053; 85025; 85610; 96374; 96375; 99285; J1100; J1200; J2270

== ENCOUNTER 2025-01-16 12:15 | Oncology outpatient (recurring) (ONCR) | payer MEDICARE, OTHER, SELFPAY ==
[2024-12-30 10:31] LABS: Basophils % 0.4 %; Eosinophils # 0.1 10^3/uL (0.0-0.8); Eosinophils % 0.9 %; Hematocrit 40.2 % (36-47); Lymphocytes # 1.6 10^3/uL (0.8-4.8); Lymphocytes % 20.4 %; Mean Corpuscular HGB Conc 34.1 g/dL (30-55); Mean Corpuscular Hemoglobin 33.9 pg (27-33); Mean Corpuscular Volume 99.5 fl (85-98); Mean Platelet Volume 8.5 fL (7.4-10.4); Monocytes # 1.1 10^3/uL (0.2-0.9); Monocytes % 13.8 %; Neutrophils # 4.94 10^3/uL (1.8-7.7); Neutrophils % 63.3 %; Nucleated Red Blood Cells % 0 %; Platelet Count 150 10^3/cmm (157-399); Red Blood Count 4.04 10^6/uL (3.85-5.65); Red Cell Distribution Width 14.4 % (12.1-15.1)
[2024-12-30 10:50] LABS: Alanine Aminotransferase 41 U/L (0-33); Albumin Level 3.7 g/dL (3.5-5.2); Alkaline Phosphatase 142 U/L (35-105); Blood Urea Nitrogen 15 mg/dL (8-23); Calcium 8.6 mg/dL (8.5-10.5); Carbon Dioxide 22 mmol/L (22-29); Chloride 101 mmol/L (98-107); Globulin 3.3 g/dL (1.3-4.6); Glucose 177 mg/dL (65-115); Osmolality Calculated 287 mOsm/kg (285-295); Sodium 136 mmol/L (136-145); Total Bilirubin 0.2 mg/dL (0.15-1.2)
[2024-12-30 10:51] LABS: Anion Gap 17.2 (5-19); Potassium 4.2 mmol/L (3.5-5.1)
[2024-12-30 10:52] LABS: Aspartate Amino Transferase 35 U/L (0-32)
[2024-12-30] MEDS: sodium chloride 0.9% 250 ML 75 ML IV (12:23)
[2024-12-30] MEDS: [UNRECOGNIZED DRUG - OTHER] IV (12:28)
[2024-12-30] MEDS: BEVACIZUMAB BVZR IV (12:28)
[2024-12-30 14:23] LABS: Bilirubin Urine Negative (Negative); Blood Urine Negative (Negative); Glucose Urine UA Trace (Normal); Ketones Urine Trace (Negative); Leukocyte Esterase Urine Negative (Negative); Nitrate Urine Negative (Negative); Protein Urine 1+ (Negative); Urine Appearance Cloudy (CLEAR); Urine Color Dark Yellow (Yellow); pH Urine 5.5 (5-7)
[2024-12-30 14:31] LABS: Add Urine Microscopic? YES; Bacteria Urine None Seen /hpf; Hyaline Casts Urine 7.42 /lpf; Squamous Epithelial Cell Urine 0-5 /hpf (0-5); WBC Urine 0-5 /hpf (0-5)
[2024-12-30 14:47] LABS: Specific Gravity, Urine 1.036 (1.005-1.030)
--- NOTE | 2025-01-16 12:15 | MR_ITS ---
WS: [id number] MRI HEAD WITH CONTRAST TECHNIQUE: Sagittal T1, T2 axial, T2 axial FLAIR, axial susceptibility weighted imaging, axial diffusion weighted images, and coronal T2 images were obtained. Pre and post-T1 axial and post T1 coronal images. ADC and FSPGR images. CLINICAL INFORMATION: Glioblastoma multiforme COMPARISON: MRI 11/14/2024 FINDINGS: Again seen is the large RIGHT parietal resection cavity. Associated hemosiderin with peripheral enhancement about the resection cavity. Surrounding nonenhancing T2 hyperintensity is similar in appearance. Signal abnormality in the deep frontal parietal white matter appears slightly improved. Nonenhancing T2 signal abnormality involves the splenium of the corpus callosum similar to previous. Small amount of fluid deep to the craniotomy. Thick margin of enhancement about the resection cavity appears relatively stable and may be due to treatment related changes. Residual disease not entirely excluded. T1 hyperintense blood products along the anterior margin of the resection cavity is similar in appearance but somewhat improved. No other significant changes. MR/MR head wo/w con [id number] IMPRESSION: 1. RIGHT parietal resection cavity is relatively stable in appearance since . 2. No evidence of increasing edema or mass effect. 3. Thick margin of enhancement about the resection cavity is similar in appear ance to previous. 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 Recommend continued serial MRI surveillance for tumor progression. This are a could be followed up with MRI perfusion if worsening clinical symptoms althou gh not available at this facility. 4. No other significant changes
[2025-01-16] MEDS: gadobenate dimeglumine 20 mL vial 19 ML IV (12:40)
== END 2025-01-16 23:59 | disposition home or self-care (01) ==
LOC: RAD 01-17 → ONCMED 01-17 07:35
PROVIDERS: Internal Medicine Medical Oncology; Nurse Practitioner; PCP Internal Medicine; Visit Provider Nurse Practitioner Family
DX: C71.3 Malignant neoplasm of parietal lobe; Z53.9 Procedure and treatment not carried out, unspecified reason
CPT/HCPCS: 70553; 80053; 81001; 85025; 96413; 99214; J7050; Q5118

== ENCOUNTER 2025-01-20 09:51 | Oncology outpatient (recurring) (ONCR) | payer MEDICARE, OTHER, SELFPAY ==
[2025-01-20 10:23] LABS: Basophils % 0.4 %; Eosinophils # 0.1 10^3/uL (0.0-0.8); Eosinophils % 0.9 %; Lymphocytes # 1.7 10^3/uL (0.8-4.8); Mean Corpuscular HGB Conc 33.6 g/dL (30-55); Mean Corpuscular Volume 98.4 fl (85-98); Mean Platelet Volume 8.8 fL (7.4-10.4); Monocytes # 0.9 10^3/uL (0.2-0.9); Monocytes % 13.4 %; Neutrophils # 3.89 10^3/uL (1.8-7.7); Neutrophils % 58.1 %; Nucleated Red Blood Cells % 0 %; Platelet Count 147 10^3/cmm (157-399); Red Blood Count 4.27 10^6/uL (3.85-5.65); Red Cell Distribution Width 13.8 % (12.1-15.1)
[2025-01-20 10:39] LABS: Alanine Aminotransferase 39 U/L (0-33); Albumin Level 3.6 g/dL (3.5-5.2); Alkaline Phosphatase 115 U/L (35-105); Anion Gap 16.8 (5-19); Aspartate Amino Transferase 26 U/L (0-32); Blood Urea Nitrogen 14 mg/dL (8-23); Calcium 8.8 mg/dL (8.5-10.5); Carbon Dioxide 24 mmol/L (22-29); Chloride 107 mmol/L (98-107); Glucose 144 mg/dL (65-115); Osmolality Calculated 301 mOsm/kg (285-295); Potassium 3.8 mmol/L (3.5-5.1); Sodium 144 mmol/L (136-145); Total Bilirubin 0.2 mg/dL (0.15-1.2); Total Protein 6.6 g/dL (6.6-8.7)
[2025-01-20] MEDS: sodium chloride 0.9% 250 ML 75 ML IV (13:04)
[2025-01-20 14:13] VITALS: BP 158/72; PULSE 73; TEMP 35.9; O2SAT 97
== END 2025-01-20 23:59 | disposition home or self-care (01) ==
PROVIDERS: Internal Medicine Medical Oncology; PCP Internal Medicine; Visit Provider Nurse Practitioner Family
DX: Z51.12 Encounter for antineoplastic immunotherapy (principal); C71.3 Malignant neoplasm of parietal lobe; R03.0 Elevated blood-pressure reading, without diagnosis of hypertension; R51.9 Headache, unspecified; N76.4 Abscess of vulva; Z79.899 Other long term (current) drug therapy
CPT/HCPCS: 36415; 80053; 85025; 96413; 99214; J7050; Q5118

== ENCOUNTER → 2025-01-27 14:13 | Outpatient (BNVA) | payer MEDICARE, OTHER, SELFPAY | PROVIDERS: PCP Internal Medicine; Visit Provider Emergency Medicine | DX: M25.561 Pain in right knee (principal) | CPT/HCPCS: 73562 ==

== ENCOUNTER 2025-02-10 09:45 | Oncology outpatient (recurring) (ONCR) | payer MEDICARE, OTHER, SELFPAY | END 2025-02-20 23:59 | disposition home or self-care (01) | PROVIDERS: PCP Internal Medicine; Visit Provider Nurse Practitioner Family | DX: Z53.9 Procedure and treatment not carried out, unspecified reason (principal) | CPT/HCPCS: 99214 ==